=== PATIENT | male | born 1995 | race Caucasian/White ===

== ENCOUNTER 2023-02-15 15:19 | Emergency (ER) | payer MEDICAID, SELFPAY ==
[2023-02-15 15:25] VITALS: BP 157/119; PULSE 175; RESP 24; TEMP 37.2; O2SAT 99; BMI 25.8
--- NOTE | 2023-02-15 15:28 | ECG_ITS ---
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
--- NOTE | 2023-02-15 15:47 | ED_ITS ---
HPI - Psych General Chief Complaint: Psychiatric Symptoms Stated Complaint: ANXIETY Time Seen by Provider: 02/15/23 15:40 Source: Reports patient Mode of arrival: walk-in Limitations: Reports no limitations History of Present Illness HPI Narrative: 28-year-old male presents for paranoia. He was with his sister and walked here unaccompanied. He states he feels that people are after him. He doesn't want anybody standing near him, as he doesn't want be accused of hitting them. Denies drug use. He doesn't seem to have any physical complaints. Related Data Allergies Allergy/AdvReac Type Severity Reaction Status Date / Time No Known Drug Allergies Allergy Verified 02/15/23 15:31 Review of Systems ROS Narrative A ten point review of systems is negative except as noted above. Exam Narrative Exam Narrative: Nurses note and vital signs reviewed and patient is not hypoxic. General: The patient is nearly continuously looking under the curtain that goes into his room and then off to the other side of the bed and then back to the curtain side. Skin: Warm, dry, no pallor noted. There is no rash noted. Head: Normocephalic, atraumatic Eye: Normal conjunctiva, no drainage Ears, Nose, Mouth, and Throat: oral mucosa is moist. Nares patent. Cardiovascular: Regular Rate and Rhythm, tachycardic Respiratory: Patient is in no distress, no accessory muscle use, lungs are clear to auscultation, no wheezing, rales or rhonchi Back: non-tender GI: one ten Musculoskeletal: The patient has no evidence of calf tenderness, no pitting edema, symmetrical pulses noted bilaterally Neurological: slightly pressured speech Psychiatric: very anxious, nearly continuously looking around the room Constitutional Vital Signs - 24 hr 02/15/23 15:25 02/15/23 17:53 Temperature 99 F Pulse Rate [Monitor] 175 H 139 H Respiratory Rate 24 24 Blood Pressure [Right Arm] 157/119 H 170/100 H Pulse Oximetry 99 99 Oxygen Delivery Method Room Air Room Air Course Vital Signs Vital signs: Vital Signs Temperature 99 F 02/15/23 15:25 Pulse Rate 175 H 02/15/23 15:25 Respiratory Rate 24 02/15/23 15:25 Blood Pressure 157/119 H 02/15/23 15:25 Pulse Oximetry 99 02/15/23 15:25 Oxygen Delivery Method Room Air 02/15/23 15:25 Temperature 99 F 02/15/23 15:25 Pulse Rate 139 H 02/15/23 17:53 Respiratory Rate 24 02/15/23 17:53 Blood Pressure 170/100 H 02/15/23 17:53 Pulse Oximetry 99 02/15/23 17:53 Oxygen Delivery Method Room Air 02/15/23 17:53 MDM - Psych MDM Narrative Medical decision making narrative: drug screen is pending. He is quite paranoid and has a history of substance abuse. The patient is signed out to . Differential Diagnosis Differential diagnosis: Likely acute psychosis, depression, drug-induced psychotic disorder and acute anxiety Lab Data Attestation: I reviewed the patient's lab results. Labs: Lab Results 02/15/23 Range/Units 15:52 WBC 15.6 H (4.0-11.0) 10^3/uL RBC 5.87 (4.70-6.10) 10^6/uL Hgb 17.7 (14.0-18.0) g/dL Hct 49.4 (42.0-54.0) % MCV 84.2 (80.0-94.0) fL MCH 30.2 (25.9-34.0) pg MCHC 35.8 H (29.9-35.2) g/dL RDW 11.8 (11.0-15.0) % Plt Count 398 (150-450) 10^3/uL MPV 9.5 (9.5-13.5) fL Neut % (Auto) 85.8 H (43.0-75.0) % Lymph % (Auto) 9.4 L (20.5-60.0) % [place] % (Auto) 4.0 (1.7-12.0) % Eos % (Auto) 0.0 L (0.9-7.0) % Baso % (Auto) 0.4 (0.2-2.0) % Neut # (Auto) 13.3 H (1.4-6.5) 10^3/uL Lymph # (Auto) 1.5 (1.2-3.8) 10^3/uL [place] # (Auto) 0.6 (0.3-0.8) 10^3/uL Eos # (Auto) 0.0 (0.0-0.7) 10^3/uL Baso # (Auto) 0.1 (0.0-0.1) 10^3/uL Abs Immat Gran (auto) 0.07 H (0.00-0.03) 10^3/uL Imm/Tot Granulo (auto) 0.4 (0.0-0.5) % Sodium 141 (136-145) mmol/L Potassium 3.7 (3.5-5.1) mmol/L Chloride 105 (98-107) mmol/L Carbon Dioxide 26.4 (21.0-32.0) mmol/L Anion Gap 13.3 BUN 11.0 (7.0-18.0) mg/dL Creatinine 1.30 (0.70-1.30) mg/dL Est GFR ( Amer) >60 (>=60) Est GFR (Non-Af Amer) >60 (>=60) BUN/Creatinine Ratio 8.5 Glucose 159 H (74-106) mg/dL Calcium 9.0 (8.5-10.1) mg/dL TSH 0.485 (0.358-3.740) uIU/mL Salicylates 4.1 (<=19.9) mg/dL Acetaminophen <2.0 L (10.0-30.0) ug/mL Ethanol Quant <3 mg/dL ECG Data Attestation: I personally reviewed and interpreted this ECG as follows: (EKG on my interpretation shows sinus tachycardia) Discharge Plan Discharge Chief Complaint: Psychiatric Symptoms Clinical Impression: Acute psychosis Patient Disposition: Still a Patient Referrals: Physician,Non-Staff, MD [Primary Care Provider] - 1 week
[2023-02-15] MEDS: 0.9 % SODIUM CHLORIDE 1,000 ML 1000 ML IV (16:05)
[2023-02-15 16:25] LABS: Anion Gap 13.3; BUN Creatinine Ratio 8.5; Carbon Dioxide 26.4 mmol/L (21.0-32.0); Chloride 105 mmol/L (98-107); Estimated GFR (African America >60 (>=60); Estimated GFR (Non-African Ame >60 (>=60); Glucose 159 mg/dL (74-106); Potassium 3.7 mmol/L (3.5-5.1); Salicylate 4.1 mg/dL (<=19.9); Sodium 141 mmol/L (136-145); Thyroid Stimulating Hormone 0.485 uIU/mL (0.358-3.740)
[2023-02-15 16:28] LABS: Basophils Absolute Auto 0.1 10^3/uL (0.0-0.1); Basophils Percent Auto 0.4 % (0.2-2.0); Hematocrit 49.4 % (42.0-54.0); Hemoglobin 17.7 g/dL (14.0-18.0); Immature Granulocytes Abs Auto 0.07 10^3/uL (0.00-0.03); Immature Granulocytes Pct Auto 0.4 % (0.0-0.5); Lymphocytes Absolute Auto 1.5 10^3/uL (1.2-3.8); Lymphocytes Percent Auto 9.4 % (20.5-60.0); Mean Corpuscular HGB Conc 35.8 g/dL (29.9-35.2); Mean Corpuscular Hemoglobin 30.2 pg (25.9-34.0); Mean Corpuscular Volume 84.2 fL (80.0-94.0); Mean Platelet Volume 9.5 fL (9.5-13.5); Monocytes Absolute Auto 0.6 10^3/uL (0.3-0.8); Neutrophils Absolute Auto 13.3 10^3/uL (1.4-6.5); Neutrophils Percent Auto 85.8 % (43.0-75.0); Platelet Count 398 10^3/uL (150-450); Red Blood Count 5.87 10^6/uL (4.70-6.10); Red Cell Distribution Width 11.8 % (11.0-15.0); White Blood Count 15.6 10^3/uL (4.0-11.0)
[2023-02-15 16:32] LABS: Acetaminophen <2.0 ug/mL (10.0-30.0)
[2023-02-15 16:38] LABS: Ethanol <3 mg/dL
[2023-02-15 17:53] VITALS: BP 170/100; PULSE 139; RESP 24; O2SAT 99
--- NOTE | 2023-02-15 17:57 | XR_ITS ---
The [address] [address] Patient Name: MEETA CARABALLO MRN: [id number] date: 1995 Sex: M Assigned Patient Location: ED.MAIN Current Patient Location: ER Accession/Order Number: [id number] Exam Date: 02/15/2023 18:48 Report Date: 02/15/2023 19:29 At the request of: DANIEL BROUSSARD Procedure: XR chest 1V PROCEDURE: XR chest 1V DATE: 02/15/2023 5:48 PM CDT COMPARISONS: None. CLINICAL INDICATION: 28 years Male tachycardic FINDINGS: The cardiomediastinal silhouette and pulmonary vasculature are within normal limits. The lungs are clear. There is no evidence of pleural effusion or pneumothorax. IMPRESSION: Chest radiograph is within normal limits. Electronically authenticated by: NICHOLE MONTIEL Date: 02/15/2023 19:29
[2023-02-15] MEDS: LORAZEPAM 2 MG/ML 1 ML VIAL 1 MG IV (18:39)
[2023-02-15 19:14] LABS: Amphetamine Screen Urine POSITIVE (NEGATIVE); Barbiturates Screen Urine NEGATIVE (NEGATIVE); Benzodiazepines Screen Urine NEGATIVE (NEGATIVE); Buprenorphine Screen Urine NEGATIVE (NEGATIVE); Cannabinoid Screen Urine POSITIVE (NEGATIVE); Cocaine Screen Urine POSITIVE (NEGATIVE); Methadone Screen Urine NEGATIVE (NEGATIVE); Methamphetamines Screen Urine POSITIVE (NEGATIVE); Opiate Screen Urine NEGATIVE (NEGATIVE); Oxycodone Screen Urine NEGATIVE (NEGATIVE); Phencyclidine Screen Urine NEGATIVE (NEGATIVE); Tricyclic Antidepressant Urine NEGATIVE (NEGATIVE)
[2023-02-15] MEDS: HALOPERIDOL LACTATE 5 MG/ML VIAL IM (22:51)
[2023-02-15] MEDS: LORAZEPAM 2 MG/ML 1 ML VIAL 0.5 MG IV (22:51)
--- NOTE | 2023-02-15 23:00 | PC.NURSE ---
patient in [place] with security. he is afraid of the room. 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 patient given two medications. IV being removed. [facility] psych car here for patient. patient refuse to go into room for vitals.
== END 2023-02-15 23:29 ==
PROVIDERS: Emergency Medicine; Emergency Provider Emergency Medicine
DX: F25.9 Schizoaffective disorder, unspecified (principal); F19.10 Other psychoactive substance abuse, uncomplicated
CPT/HCPCS: 36415; 71045; 80048; 80179; 80307; 80320; 80329; 84443; 85025; 93005; 96372; 96374; 96376; 99285

== ENCOUNTER 2023-05-17 19:57 | Emergency (ER) | payer MEDICAID, SELFPAY ==
[2023-05-17 20:02] VITALS: BP 146/89; PULSE 101; RESP 18; TEMP 36.8; O2SAT 97; BMI 24.4
--- NOTE | 2023-05-17 20:11 | XR_ITS ---
[address] [address] Patient Name: MEETA CARABALLO MRN: [id number] date: 1995 Sex: M Assigned Patient Location: ER Current Patient Location: ER Accession/Order Number: [id number] Exam Date: 05/17/2023 21:29 Report Date: 05/17/2023 21:05 At the request of: JAGDEEP SEQUEIRA Procedure: XR chest 1V EXAMINATION: XR chest 1V HISTORY: Cough COMPARISON: Portable chest 02/15/2023 TECHNIQUE: Portable chest FINDINGS: The lung parenchyma is free of consolidation or infiltrate. No pneumothorax or pleural effusion. The cardiac, mediastinal and hilar contours are normal. The visualized osseous structures exhibit no gross abnormality. XR/XR chest 1V IMPRESSION: No acute cardiopulmonary abnormality. Electronically authenticated by: URBAN SPENCER Date: 05/17/2023 21:05
--- NOTE | 2023-05-17 20:12 | ED_ITS ---
HPI - URI/Sore Throat General Chief Complaint: Upper Respiratory Infection Stated Complaint: VOMITING Time Seen by Provider: 05/17/23 20:03 Source: patient Limitations: no limitations History of Present Illness HPI Narrative: presents with cough past couple of days. Nausea yesterday. felt dizzy earlier today but not now. Not short of breath. feels ill. Girlfriend also ill. No definite fever. No history of asthma. Does smoke cigarettes MD elicited complaint: Reports cough Related Data Home Medications Medication Instructions Recorded Confirmed buspirone 10 mg tablet 35 mg PO TID 05/17/23 05/17/23 escitalopram oxalate 5 mg tablet 5 mg PO DAILY 05/17/23 05/17/23 paliperidone 6 mg tablet,extended 6 mg PO DAILY 05/17/23 05/17/23 release 24 hr paliperidone palmitate 234 mg/1.5 234 mg IM Q30D 05/17/23 05/17/23 mL intramuscular syringe ([place]) prazosin 1 mg capsule 1 mg PO QPM 05/17/23 05/17/23 trazodone 150 mg tablet 150 mg PO QPM 05/17/23 05/17/23 Allergies Allergy/AdvReac Type Severity Reaction Status Date / Time No Known Drug Allergies Allergy Verified 02/15/23 15:31 Review of Systems ROS Status of ROS 10 or more systems reviewed and unremarkable except as noted in history and below [facility] Social History Smoking status: Current every day smoker Exam Constitutional Vital Signs, click to edit/add: Last Vital Signs Temp 98.2 F 05/17/23 20:02 Pulse 80 05/17/23 20:24 Resp 18 05/17/23 20:02 BP 145/89 H 05/17/23 20:24 Pulse Ox 97 05/17/23 20:02 O2 Del Method Room Air 05/17/23 20:02 Common normals: no apparent distress, average body habitus, oriented x3, no limitations, healthy appearing, alert and well nourished Eye Common normals: EOMs intact bilaterally and conjunctivae normal Respiratory Common normals: normal respiratory effort, no retractions, no use of accessory muscles and clear to auscultation bilaterally Cardio Common normals: regular rate, regular rhythm, S1 normal heart sound and S2 normal heart sound GI Common normals: Normal to inspection, nondistended, normoactive bowel sounds present, soft to palpation and non-tender Extremity Common normals: normal to inspection and full ROM Neuro Common normals: oriented x3, CN's II-XII intact bilaterally, moves all extremities, no focal motor deficits and no sensory deficits noted Psych Appearance: grossly normal Course Vital Signs Vital signs: Vital Signs Temperature 98.2 F 05/17/23 20:02 Pulse Rate 101 H 05/17/23 20:02 Respiratory Rate 18 05/17/23 20:02 Blood Pressure 146/89 H 05/17/23 20:02 Pulse Oximetry 97 05/17/23 20:02 Oxygen Delivery Method Room Air 05/17/23 20:02 Temperature 98.2 F 05/17/23 20:02 Pulse Rate 80 05/17/23 20:24 Respiratory Rate 18 05/17/23 20:02 Blood Pressure 145/89 H 05/17/23 20:24 Pulse Oximetry 97 05/17/23 20:02 Oxygen Delivery Method Room Air 05/17/23 20:02 MDM - URI/Sore Throat MDM Narrative Medical decision making narrative: ill past couple of days. Dizziness earlier today but not now. Found to have orthostatic tachycardia. Exam without focal findings. nasal swab positive for Rhino/entero virus. Patient hydrated and is feeling better. Discharged home with work note. Clinically stable Lab Data Labs: Lab Results 05/17/23 Range/Units 20:15 WBC 10.4 (4.0-11.0) 10^3/uL RBC 4.78 (4.70-6.10) 10^6/uL Hgb 14.9 (14.0-18.0) g/dL Hct 41.5 L (42.0-54.0) % MCV 86.8 (80.0-94.0) fL MCH 31.2 (25.9-34.0) pg MCHC 35.9 H (29.9-35.2) g/dL RDW 12.1 (11.0-15.0) % Plt Count 246 (150-450) 10^3/uL MPV 9.6 (9.5-13.5) fL Neut % (Auto) 68.0 (43.0-75.0) % Lymph % (Auto) 22.6 (20.5-60.0) % [place] % (Auto) 8.3 (1.7-12.0) % Eos % (Auto) 0.0 L (0.9-7.0) % Baso % (Auto) 0.8 (0.2-2.0) % Neut # (Auto) 7.1 H (1.4-6.5) 10^3/uL Lymph # (Auto) 2.3 (1.2-3.8) 10^3/uL [place] # (Auto) 0.9 H (0.3-0.8) 10^3/uL Eos # (Auto) 0.0 (0.0-0.7) 10^3/uL Baso # (Auto) 0.1 (0.0-0.1) 10^3/uL Abs Immat Gran (auto) 0.03 (0.00-0.03) 10^3/uL Imm/Tot Granulo (auto) 0.3 (0.0-0.5) % Sodium 140 (136-145) mmol/L Potassium 3.4 L (3.5-5.1) mmol/L Chloride 105 (98-107) mmol/L Carbon Dioxide 24.0 (21.0-32.0) mmol/L Anion Gap 14.4 BUN 17.0 (7.0-18.0) mg/dL Creatinine 0.90 (0.70-1.30) mg/dL Est GFR ( Amer) >60 (>=60) Est GFR (Non-Af Amer) >60 (>=60) BUN/Creatinine Ratio 18.9 Glucose 113 H (74-106) mg/dL Lactate 0.9 (0.4-2.0) mmol/L Calcium 8.3 L (8.5-10.1) mg/dL Total Bilirubin 0.4 (0.2-1.0) mg/dL AST 29 (15-37) U/L ALT 86 H (16-63) U/L Alkaline Phosphatase 80 (46-116) U/L Total Protein 7.1 (6.4-8.2) g/dL Albumin 3.6 (3.4-5.0) g/dL Globulin 3.5 g/dL Albumin/Globulin Ratio 1.0 Urine Color Yellow (YELLOW) Urine Clarity Clear (CLEAR) Urine pH 6.0 (5.0-9.0) Ur Specific [place] >=1.030 A (1.005-1.025) Urine Protein Negative (NEG/TRACE) mg/dL Urine Glucose (UA) Negative (NEGATIVE) mg/dL Urine Ketones Trace A (NEGATIVE) mg/dL Urine Occult Blood Negative (NEGATIVE) Urine Nitrite Negative (NEGATIVE) Urine Bilirubin Negative (NEGATIVE) Urine Urobilinogen 2.0 A (0.2-1.0) EU/dL Ur Leukocyte Esterase Negative (NEGATIVE) Adenovirus (PCR) Not detected (NOT DETECTE) C. pneumoniae DNA (PCR) Not detected (NOT DETECTE) Coronavirus Type OC43 Not detected (NOT DETECTE) Coronavirus Type HKU1 Not detected (NOT DETECTE) Coronavirus Type 229E Not detected (NOT DETECTE) Coronavirus Type NL63 Not detected (NOT DETECTE) Human Metapneumovir PCR Not detected (NOT DETECTE) M. pneumoniae (PCR) Not detected (NOT DETECTE) Parainfluenza PCR Not detected (NOT DETECTE) Parainfluenza 2 (PCR) Not detected (NOT DETECTE) Parainfluenza 3 (PCR) Not detected (NOT DETECTE) Parainfluenza 4 (PCR) Not detected (NOT DETECTE) RSV (RT-PCR) Not detected (NOT DETECTE) Entero/Rhino (PCR) Detected A (NOT DETECTE) SARS-CoV-2 (PCR) Not detected (NOT DETECTE) Bordetella pertussis (PCR) Not detected (NOT DETECTE) B parapertussis DNA PCR Not detected (NOT DETECTE) Influenza Type A (PCR) Not detected (NOT DETECTE) Influenza Type B (PCR) Not detected (NOT DETECTE) Discharge Plan Discharge Chief Complaint: Upper Respiratory Infection Clinical Impression: Acute dehydration, Viral infection Patient Disposition: Home, Self-Care Prescriptions / Home Meds: No Action buspirone 10 mg tablet 35 mg PO TID escitalopram oxalate 5 mg tablet 5 mg PO DAILY paliperidone 6 mg tablet extended release 24hr 6 mg PO DAILY Invega Sustenna 234 mg/1.5 mL syringe 234 mg IM Q30D trazodone 150 mg tablet 150 mg PO QPM prazosin 1 mg capsule 1 mg PO QPM Instructions: Dehydration (ED), Viral Syndrome (ED) Stand Alone Forms: Portal Instructions Referrals: Physician,Non-Staff, MD [Primary Care Provider] - 1 week
--- NOTE | 2023-05-17 20:20 | PC.NURSE ---
pt presents to ED c/o n/v that started 2 days ago. pt states earlier today he was feeling dizzy but no longer feeling dizzy at this time or nausea. pt states that he has cough and is hacking up phlegm but is a smoker. pt states that he has been around people who have been sick so he tested himself for covid today but test resulted negative.
[2023-05-17 20:24] VITALS: BP 140/85; BP 144/92; BP 145/89; PULSE 124; PULSE 80; PULSE 90
[2023-05-17 20:28] LABS: Adenovirus NOT DETECTED (NOT DETECTE); Bordetella parapertussis NOT DETECTED (NOT DETECTE); Coronavirus 229E NOT DETECTED (NOT DETECTE); Coronavirus HKU1 NOT DETECTED (NOT DETECTE); Coronavirus NL63 NOT DETECTED (NOT DETECTE); Coronavirus OC43 NOT DETECTED (NOT DETECTE); Human Metapneumovirus NOT DETECTED (NOT DETECTE); Influenza A NOT DETECTED (NOT DETECTE); Influenza B NOT DETECTED (NOT DETECTE); Mycoplasma pneumoniae NOT DETECTED (NOT DETECTE); Parainfluenza Virus 1 NOT DETECTED (NOT DETECTE); Parainfluenza Virus 2 NOT DETECTED (NOT DETECTE); Parainfluenza Virus 3 NOT DETECTED (NOT DETECTE); Parainfluenza Virus 4 NOT DETECTED (NOT DETECTE); Respiratory Syncytial Virus NOT DETECTED (NOT DETECTE); SARS-CoV-2 NOT DETECTED (NOT DETECTE)
[2023-05-17 20:30] LABS: Basophils Absolute Auto 0.1 10^3/uL (0.0-0.1); Basophils Percent Auto 0.8 % (0.2-2.0); Hematocrit 41.5 % (42.0-54.0); Hemoglobin 14.9 g/dL (14.0-18.0); Immature Granulocytes Abs Auto 0.03 10^3/uL (0.00-0.03); Immature Granulocytes Pct Auto 0.3 % (0.0-0.5); Lymphocytes Absolute Auto 2.3 10^3/uL (1.2-3.8); Lymphocytes Percent Auto 22.6 % (20.5-60.0); Mean Corpuscular HGB Conc 35.9 g/dL (29.9-35.2); Mean Corpuscular Hemoglobin 31.2 pg (25.9-34.0); Mean Corpuscular Volume 86.8 fL (80.0-94.0); Mean Platelet Volume 9.6 fL (9.5-13.5); Monocytes Absolute Auto 0.9 10^3/uL (0.3-0.8); Monocytes Percent Auto 8.3 % (1.7-12.0); Neutrophils Absolute Auto 7.1 10^3/uL (1.4-6.5); Platelet Count 246 10^3/uL (150-450); Red Blood Count 4.78 10^6/uL (4.70-6.10); Red Cell Distribution Width 12.1 % (11.0-15.0); White Blood Count 10.4 10^3/uL (4.0-11.0)
[2023-05-17] MEDS: 0.9 % SODIUM CHLORIDE 1,000 ML 999 ML IV (20:44)
[2023-05-17 20:47] LABS: Bilirubin Urine NEGATIVE (NEGATIVE); Blood Urine NEGATIVE (NEGATIVE); Clarity Urine CLEAR (CLEAR); Color Urine YELLOW (YELLOW); Glucose Urine UA NEGATIVE (NEGATIVE); Ketones Urine TRACE mg/dL (NEGATIVE); Leukocyte Esterase Urine NEGATIVE (NEGATIVE); Nitrite Urine NEGATIVE (NEGATIVE); Protein Urine NEGATIVE (NEG/TRACE); Specific Gravity Urine >=1.030 (1.005-1.025)
[2023-05-17 20:51] LABS: Urine Microscopic Indicated NO
[2023-05-17 20:55] LABS: Lactate/Lactic Acid 0.9 mmol/L (0.4-2.0)
[2023-05-17 20:58] LABS: Alanine Aminotransferase 86 U/L (16-63); Albumin Level 3.6 g/dL (3.4-5.0); Alkaline Phosphatase 80 U/L (46-116); Anion Gap 14.4; Aspartate Amino Transferase 29 U/L (15-37); BUN Creatinine Ratio 18.9; Bilirubin Total 0.4 mg/dL (0.2-1.0); Calcium 8.3 mg/dL (8.5-10.1); Chloride 105 mmol/L (98-107); Estimated GFR (African America >60 (>=60); Estimated GFR (Non-African Ame >60 (>=60); Globulin 3.5 g/dL; Glucose 113 mg/dL (74-106); Potassium 3.4 mmol/L (3.5-5.1); Sodium 140 mmol/L (136-145); Total Protein 7.1 g/dL (6.4-8.2)
[2023-05-17 21:30] LABS: Human Rhinovirus/Enterovirus DETECTED (NOT DETECTE)
[2023-05-17 22:05] VITALS: BP 158/98; PULSE 65; RESP 18; O2SAT 98
== END 2023-05-17 22:06 | disposition home or self-care (01) ==
PROVIDERS: Emergency Provider Internal Medicine
DX: E86.0 Dehydration (principal); B34.8 Other viral infections of unspecified site; B34.1 Enterovirus infection, unspecified; F17.210 Nicotine dependence, cigarettes, uncomplicated; Z79.899 Other long term (current) drug therapy; R00.0 Tachycardia, unspecified; Z20.822 Contact with and (suspected) exposure to COVID-19
CPT/HCPCS: 0202U; 36415; 71045; 80053; 81003; 83605; 85025; 96360; 99285

== ENCOUNTER 2024-01-14 15:32 | Emergency (ER) | payer MEDICAID, SELFPAY ==
[2024-01-14] VITALS (10 sets, daily range): BP systolic 132–166; BP diastolic 84–103; PULSE 49–80; TEMP 36.6; O2SAT 97–99; BMI 24.4
--- NOTE | 2024-01-14 15:48 | ED.NAVMDI1 ---
HPI - Nausea/Vomiting/Diarrhea General Chief complaint: Nausea/Vomiting/Diarrhea Stated complaint: Nausea/Vomiting/Diarrhea Time Seen by Provider: 01/14/24 15:40 Source: patient Mode of arrival: walk-in History of Present Illness HPI Narrative: Patient presents to ED complaining of nausea vomiting and shaking and not feeling well. Patient states this has been an issue for him on and off lately but nobody can figure out what is wrong. He said he has not had any follow-up appointments until recently and he has started to see other doctors about this. He does admit to smoking marijuana but did not have any today. He reports that he has stomach cramping and pain is centrally located. He has dry heaves and vomiting. No blood in the stool or vomit. Also complains of some diarrhea. He states he missed work today for so he came in for further evaluation. Related Data Home Medications ?Medication ?Instructions ?Recorded ?Confirmed paliperidone palmitate 234 mg/1.5 234 mg IM Q30D 05/17/23 01/14/24 mL intramuscular syringe ([facility]) trazodone 150 mg tablet 150 mg PO QPM 05/17/23 01/14/24 buspirone 15 mg tablet 15 mg PO BID 01/14/24 01/14/24 clomipramine 25 mg capsule 25 mg PO DAILY 01/14/24 01/14/24 fluvoxamine 25 mg tablet 25 mg PO DAILY 01/14/24 01/14/24 hydroxyzine pamoate 25 mg capsule 25 mg PO DAILY 01/14/24 01/14/24 lamotrigine 100 mg tablet 100 mg PO DAILY 01/14/24 01/14/24 olanzapine 15 mg tablet 15 mg PO .hs 01/14/24 01/14/24 pantoprazole 40 mg tablet,delayed 40 mg PO DAILY 01/14/24 01/14/24 release Allergies Allergy/AdvReac Type Severity Reaction Status Date / Time No Known Drug Allergies Allergy Verified 02/15/23 15:31 Review of Systems ROS Status of ROS 10 or more systems reviewed and unremarkable except as noted in history and below [facility] Social History Smoking status: Current every day smoker Exam Narrative Exam Narrative: General: alert, no acute distress Cardiovascular: regular rate and rhythm, normal peripheral perfusion. Respiratory: Lungs CTA, respirations non labored. Extremities: no deformity, no trauma. Neurological: oriented x 4, LOC appropriate for age. Abdomen soft mild generalized central abdominal tenderness no peritoneal signs no rebound no guarding Constitutional Vital Signs, click to edit/add: Last Vital Signs Temp 97.8 F 01/14/24 15:48 Pulse 58 L 01/14/24 17:20 Resp 17 01/14/24 17:20 BP 152/84 H 01/14/24 17:14 Pulse Ox 98 01/14/24 17:20 O2 Del Method Room Air 01/14/24 15:48 Course Vital Signs Vital signs: Vital Signs Temperature 97.8 F 01/14/24 15:48 Pulse Rate 63 01/14/24 15:48 Respiratory Rate 22 H 01/14/24 15:48 Blood Pressure 166/103 H 01/14/24 15:48 Pulse Oximetry 98 01/14/24 15:48 Oxygen Delivery Method Room Air 01/14/24 15:48 Temperature 97.8 F 01/14/24 15:48 Pulse Rate 58 L 01/14/24 17:20 Respiratory Rate 17 01/14/24 17:20 Blood Pressure 152/84 H 01/14/24 17:14 Pulse Oximetry 98 01/14/24 17:20 Oxygen Delivery Method Room Air 01/14/24 15:48 MDM - Nausea/Vomiting/Diarrhea MDM Narrative Medical decision making narrative: Patient's labs show a low potassium at 2.9. He was able to tolerate p.o. here and he took his potassium down of 50 mEq. He said he felt a lot better after medication, he was still feeling slightly nauseated but much better than when he got here. He looks much more comfortable and was able to sleep and rest here in ED. He instructed him to follow-up with Gastroenterology:. I also counseled him on stopping the marijuana use as I think is is contributing to his nausea vomiting and abdominal pain symptoms. Return to ED if worsening symptoms Differential Diagnosis Differential diagnosis: Likely gastroenteritis, dehydration and other (Cannabis induced hyperemesis) Medical Records Attestation: I reviewed the patient's medical records. Lab Data Attestation: I reviewed the patient's lab results. Labs: Lab Results 01/14/24 Range/Units 15:57 WBC 13.6 H (4.0-11.0) 10^3/uL RBC 5.10 (4.70-6.10) 10^6/uL Hgb 15.3 (14.0-18.0) g/dL Hct 44.2 (42.0-54.0) % MCV 86.7 (80.0-94.0) fL MCH 30.0 (25.9-34.0) pg MCHC 34.6 (29.9-35.2) g/dL RDW 12.2 (11.0-15.0) % Plt Count 283 (150-450) 10^3/uL MPV 9.5 (9.5-13.5) fL Neut % (Auto) 85.4 H (43.0-75.0) % Lymph % (Auto) 10.9 L (20.5-60.0) % [place] % (Auto) 3.0 (1.7-12.0) % Eos % (Auto) 0.0 L (0.9-7.0) % Baso % (Auto) 0.4 (0.2-2.0) % Neut # (Auto) 11.6 H (1.4-6.5) 10^3/uL Lymph # (Auto) 1.5 (1.2-3.8) 10^3/uL [place] # (Auto) 0.4 (0.3-0.8) 10^3/uL Eos # (Auto) 0.0 (0.0-0.7) 10^3/uL Baso # (Auto) 0.1 (0.0-0.1) 10^3/uL Abs Immat Gran (auto) 0.04 H (0.00-0.03) 10^3/uL Imm/Tot Granulo (auto) 0.3 (0.0-0.5) % Sodium 142 (136-145) mmol/L Potassium 2.9 L* (3.5-5.1) mmol/L Chloride 102 (98-107) mmol/L Carbon Dioxide 28.2 (21.0-32.0) mmol/L Anion Gap 14.7 BUN 13.0 (7.0-18.0) mg/dL Creatinine 1.01 (0.70-1.30) mg/dL Est GFR ( Amer) >60 (>=60) Est GFR (Non-Af Amer) >60 (>=60) BUN/Creatinine Ratio 12.9 Glucose 153 H (74-106) mg/dL Calcium 9.0 (8.5-10.1) mg/dL Total Bilirubin 0.7 (0.2-1.0) mg/dL AST 29 (15-37) U/L ALT 57 (16-63) U/L Alkaline Phosphatase 87 (46-116) U/L Total Protein 7.7 (6.4-8.2) g/dL Albumin 4.0 (3.4-5.0) g/dL Globulin 3.7 g/dL Albumin/Globulin Ratio 1.1 Discharge Plan Discharge Stand Alone Forms: Portal Instructions Chief Complaint: Nausea/Vomiting/Diarrhea Clinical Impression: Acute dehydration, Uses marijuana Patient Disposition: Home, Self-Care Time of Disposition Decision: 18:00 Mode of Transportation: Private Vehicle Prescriptions / Home Meds: No Action Invega Sustenna 234 mg/1.5 mL syringe 234 mg IM Q30D trazodone 150 mg tablet 150 mg PO QPM fluvoxamine 25 mg tablet 25 mg PO DAILY buspirone 15 mg tablet 15 mg PO BID clomipramine 25 mg capsule 25 mg PO DAILY hydroxyzine pamoate 25 mg capsule 25 mg PO DAILY lamotrigine 100 mg tablet 100 mg PO DAILY olanzapine 15 mg tablet 15 mg PO .hs pantoprazole 40 mg tablet,delayed release (DR/EC) 40 mg PO DAILY Print Language: Slovenian Instructions: Dehydration (ED), Cannabis Use Disorder (ED) Referrals: Physician,Non-Staff, MD [Primary Care Provider] - 1 week
[2024-01-14 16:05] LABS: Basophils Absolute Auto 0.1 10^3/uL (0.0-0.1); Basophils Percent Auto 0.4 % (0.2-2.0); Hematocrit 44.2 % (42.0-54.0); Hemoglobin 15.3 g/dL (14.0-18.0); Immature Granulocytes Abs Auto 0.04 10^3/uL (0.00-0.03); Immature Granulocytes Pct Auto 0.3 % (0.0-0.5); Lymphocytes Absolute Auto 1.5 10^3/uL (1.2-3.8); Lymphocytes Percent Auto 10.9 % (20.5-60.0); Mean Corpuscular HGB Conc 34.6 g/dL (29.9-35.2); Mean Corpuscular Volume 86.7 fL (80.0-94.0); Mean Platelet Volume 9.5 fL (9.5-13.5); Monocytes Absolute Auto 0.4 10^3/uL (0.3-0.8); Neutrophils Absolute Auto 11.6 10^3/uL (1.4-6.5); Neutrophils Percent Auto 85.4 % (43.0-75.0); Platelet Count 283 10^3/uL (150-450); Red Cell Distribution Width 12.2 % (11.0-15.0); White Blood Count 13.6 10^3/uL (4.0-11.0)
[2024-01-14] MEDS: 0.9 % SODIUM CHLORIDE 1,000 ML 1000 ML IV (16:16)
[2024-01-14 16:31] LABS: Alanine Aminotransferase 57 U/L (16-63); Albumin Globulin Ratio 1.1; Alkaline Phosphatase 87 U/L (46-116); Anion Gap 14.7; Aspartate Amino Transferase 29 U/L (15-37); BUN Creatinine Ratio 12.9; Bilirubin Total 0.7 mg/dL (0.2-1.0); Carbon Dioxide 28.2 mmol/L (21.0-32.0); Chloride 102 mmol/L (98-107); Estimated GFR (African America >60 (>=60); Estimated GFR (Non-African Ame >60 (>=60); Globulin 3.7 g/dL; Glucose 153 mg/dL (74-106); Sodium 142 mmol/L (136-145); Total Protein 7.7 g/dL (6.4-8.2)
[2024-01-14] MEDS: HALOPERIDOL LACTATE 5 MG/ML VIAL IV (16:32)
[2024-01-14 16:33] LABS: Potassium 2.9 mmol/L (3.5-5.1)
[2024-01-14] MEDS: ONDANSETRON PF 4 MG/2 ML VIAL IV (17:10)
[2024-01-14] MEDS: POTASSIUM BICARBONATE/CIT 25 MEQ TABLET EFF 50 MEQ PO (17:10)
[2024-01-14] MEDS: KETOROLAC TROMETHAMINE 30 MG/ML VIAL IVP (17:10)
== END 2024-01-14 18:16 | disposition home or self-care (01) ==
PROVIDERS: Emergency Provider Emergency Medicine
DX: E86.0 Dehydration (principal); F17.200 Nicotine dependence, unspecified, uncomplicated
CPT/HCPCS: 36415; 80053; 85025; 96361; 96374; 96375; 99284

== ENCOUNTER 2024-03-05 10:09 | Outpatient (OUT) | payer MEDICAID, SELFPAY ==
[2024-03-05 12:01] LABS: Thyroid Stimulating Hormone 0.712 uIU/mL (0.358-3.740)
[2024-03-06 06:13] LABS: HBsAg Screen Negative (Negative); HIV Ab/p24 Ag Screen Non Reactive (Non Reactive); Hep A Ab, Total Positive (Negative); Hepatitis B Surf Ab Quant 20.1 mIU/mL (Immunity>10)
[2024-03-09 08:11] LABS: Deamidated Gliadin Abs, IgA 4 units (0-19); Deamidated Gliadin Abs, IgG 3 units (0-19); Endomysial Antibody IgA Negative (Negative); Immunoglobulin A, Qn, Serum 187 mg/dL (90-386); t-Transglutaminase (tTG) IgA <2 U/mL (0-3); t-Transglutaminase (tTG) IgG 4 U/mL (0-5)
== END 2024-03-05 10:10 | disposition home or self-care (01) ==
LOC: LAB 10:12
DX: R10.33 Periumbilical pain (principal); K42.9 Umbilical hernia without obstruction or gangrene; K52.9 Noninfective gastroenteritis and colitis, unspecified; B18.2 Chronic viral hepatitis C; K90.49 Malabsorption due to intolerance, not elsewhere classified; F19.11 Other psychoactive substance abuse, in remission
CPT/HCPCS: 36415; 81596; 82784; 84443; 86231; 86258; 86317; 86364; 86708; 86709; 87340; 87389; 87522

== ENCOUNTER 2024-03-16 14:37 | Outpatient (REF) | payer MEDICAID, SELFPAY ==
[2024-03-18 16:02] LABS: C. Difficile PCR NEGATIVE (NEGATIVE)
== END 2024-03-16 14:38 | disposition home or self-care (01) ==
LOC: LAB 14:37
DX: R10.33 Periumbilical pain (principal); K42.9 Umbilical hernia without obstruction or gangrene; K52.9 Noninfective gastroenteritis and colitis, unspecified; B18.2 Chronic viral hepatitis C
CPT/HCPCS: 36415; 82656; 83497; 83993; 87177; 87209; 87493

== ENCOUNTER 2024-11-26 08:46 | Outpatient (OUT) | payer OTHER, SELFPAY ==
[2024-11-26 09:22] LABS: Basophils Absolute Auto 0.1 10^3/uL (0.0-0.1); Basophils Percent Auto 0.8 % (0.2-2.0); Hematocrit 44.3 % (42.0-54.0); Hemoglobin 15.6 g/dL (14.0-18.0); Immature Granulocytes Abs Auto 0.01 10^3/uL (0.00-0.03); Immature Granulocytes Pct Auto 0.1 % (0.0-0.5); Lymphocytes Absolute Auto 2.6 10^3/uL (1.2-3.8); Lymphocytes Percent Auto 36.6 % (20.5-60.0); Mean Corpuscular HGB Conc 35.2 g/dL (29.9-35.2); Mean Corpuscular Hemoglobin 29.8 pg (25.9-34.0); Mean Corpuscular Volume 84.7 fL (80.0-94.0); Mean Platelet Volume 9.5 fL (9.5-13.5); Monocytes Absolute Auto 0.7 10^3/uL (0.3-0.8); Monocytes Percent Auto 9.1 % (1.7-12.0); Neutrophils Absolute Auto 3.8 10^3/uL (1.4-6.5); Neutrophils Percent Auto 53.4 % (43.0-75.0); Platelet Count 259 10^3/uL (150-450); Red Blood Count 5.23 10^6/uL (4.70-6.10); Red Cell Distribution Width 12.4 % (11.0-15.0); White Blood Count 7.1 10^3/uL (4.0-11.0)
[2024-11-26 12:54] LABS: Alanine Aminotransferase 63 U/L (16-63); Albumin Globulin Ratio 1.1; Albumin Level 3.8 g/dL (3.4-5.0); Alkaline Phosphatase 89 U/L (46-116); Anion Gap 13.5; Aspartate Amino Transferase 28 U/L (15-37); BUN Creatinine Ratio 19.5; Bilirubin Total 0.5 mg/dL (0.2-1.0); Calcium 8.4 mg/dL (8.5-10.1); Carbon Dioxide 26.3 mmol/L (21.0-32.0); Chloride 103 mmol/L (98-107); Estimated GFR (African America >60 (>=60 mL/min/1.73m^2); Estimated GFR (Non-African Ame >60 (>=60 mL/min/1.73m^2); Globulin 3.4 g/dL; Glucose 95 mg/dL (74-106); Potassium 3.8 mmol/L (3.5-5.1); Sodium 139 mmol/L (136-145); Total Protein 7.2 g/dL (6.4-8.2)
[2024-11-27 06:12] LABS: HBsAg Screen Negative (Negative); HIV Ab/p24 Ag Screen Non Reactive (Non Reactive); Hepatitis B Surf Ab Quant 19.5 mIU/mL (Immunity>10)
== END 2024-11-26 08:47 | disposition home or self-care (01) ==
LOC: LAB 08:49
PROVIDERS: Visit Provider Internal Medicine
DX: B19.20 Unspecified viral hepatitis C without hepatic coma (principal)
CPT/HCPCS: 36415; 80053; 85025; 86317; 87340; 87389; 87522

== ENCOUNTER 2024-12-28 14:15 | Emergency (ER) | payer OTHER, SELFPAY ==
[2024-12-28 14:22] VITALS: BP 137/84; PULSE 114; TEMP 36.6; O2SAT 98; BMI 24.4
--- NOTE | 2024-12-28 14:40 | ED.BACK1 ---
HPI HPI - Back Pain/Injury General Chief Complaint: Back Pain/Injury Stated Complaint: NECK AND BACK PAIN Time Seen by Provider: 12/28/24 14:34 Source: patient Mode of arrival: walk-in Limitations: no limitations History of Present Illness HPI Narrative: The patient have a history of chronic hip pains coming to the ER with a lower neck pain associated with no fall or trauma, the pain is not associate with any numbness tingling in his legs or feet or any hand numbness or tingling or weakness The patient mentioned that the pain mostly in the left side Related Data Home Medications ?Medication ?Instructions ?Recorded ?Confirmed paliperidone palmitate 234 mg/1.5 234 mg IM Q30D 05/17/23 01/14/24 mL intramuscular syringe (Invega Sustenna) trazodone 150 mg tablet 150 mg PO QPM 05/17/23 01/14/24 buspirone 15 mg tablet 15 mg PO BID 01/14/24 01/14/24 clomipramine 25 mg capsule 25 mg PO DAILY 01/14/24 01/14/24 fluvoxamine 25 mg tablet 25 mg PO DAILY 01/14/24 01/14/24 hydroxyzine pamoate 25 mg capsule 25 mg PO DAILY 01/14/24 01/14/24 lamotrigine 100 mg tablet 100 mg PO DAILY 01/14/24 01/14/24 olanzapine 15 mg tablet 15 mg PO .hs 01/14/24 01/14/24 pantoprazole 40 mg tablet,delayed 40 mg PO DAILY 01/14/24 01/14/24 release Previous Rx's ?Medication ?Instructions ?Recorded diclofenac sodium 75 mg 75 mg PO BID PRN pain #20 tabs 12/28/24 tablet,delayed release orphenadrine citrate 100 mg 100 mg PO BID PRN muscle spasm #10 12/28/24 tablet,extended release tabs Allergies Allergy/AdvReac Type Severity Reaction Status Date / Time No Known Drug Allergies Allergy Verified 12/28/24 14:21 Opioid HPI Opioid Management Most Recent Opioid Data: Last Pain Scale 6 Today, 14:28 Ur Phencyclidine Scrn, (NEGATIVE) Negative 02/15/23, 18:35 Review of Systems ROS Status of ROS 10 or more systems reviewed and unremarkable except as noted in history and below PFSH PFSH Social History Smoking status: Current every day smoker Little interest or pleasure in doing things: not at all Feeling down, depressed, or hopeless: not at all Exam Narrative Exam Narrative: Nurses notes and vital signs reviewed and patient is not hypoxic. General: Well-appearing and in no apparent distress. Skin: Warm, dry, no pallor noted. No rash. Head: Normocephalic, atraumatic. Neck: Left paraspinal muscle tenderness there is no intervertebral line tenderness the patient have a full range of movement Cardiovascular: Regular Rate and Rhythm without murmur, gallop or rub. Respiratory: No accessory muscle use or respiratory distress. Lungs are clear to auscultation, no wheezing, rales or rhonchi Chest Wall: no tenderness Back: No midline thoracic or lumbar vertebral tenderness. No CVA tenderness Musculoskeletal: normal ROM, no calf or popliteal tenderness, no lower extremity edema/swelling GI: Abdomen is soft, non-distended. Normal bowel sounds. No masses appreciated. No tenderness to palpation. No rebound, guarding, or rigidity noted. Neurological: A&O x4. No cranial nerve dysfunction observed. Constitutional Vital Signs, click to edit/add: Last Vital Signs Temp 98 F 12/28/24 14:22 Pulse 114 H 12/28/24 14:22 Resp 20 12/28/24 14:22 BP 137/84 12/28/24 14:22 Pulse Ox 98 12/28/24 14:22 O2 Del Method Room Air 12/28/24 14:22 Course Vital Signs Vital signs: Vital Signs Temperature 98 F 12/28/24 14:22 Pulse Rate 114 H 12/28/24 14:22 Respiratory Rate 12/28/24 14:22 Blood Pressure 137/84 12/28/24 14:22 Pulse Oximetry 98 12/28/24 14:22 Oxygen Delivery Method Room Air 12/28/24 14:22 Temperature 98 F 12/28/24 14:22 Pulse Rate 114 H 12/28/24 14:22 Respiratory Rate 12/28/24 14:22 Blood Pressure 137/84 12/28/24 14:22 Pulse Oximetry 98 12/28/24 14:22 Oxygen Delivery Method Room Air 12/28/24 14:22 MDM - Back Pain/Injury MDM Narrative Medical decision making narrative: The patient presented to us with a muscle pain mostly secondary sprain to the neck The patient does not have any alarming symptoms he was started on Voltaren as well as Norflex The patient is to follow up with primary care physician in next 2-3 days or to return to the emergency department should any of the signs or symptoms worsen or new symptoms develop. The patient agrees with the following Diagnosis and Treatment plan and the patient will be discharged home. Discharge Plan Discharge Chief Complaint: Back Pain/Injury Clinical Impression: Neck sprain, Acute hip pain Patient Disposition: Home, Self-Care Time of Disposition Decision: 15:02 Condition: Good Mode of Transportation: Private Vehicle Prescriptions / Home Meds: New diclofenac sodium 75 mg tablet,delayed release (DR/EC) 75 mg PO BID PRN (Reason: pain) Qty: 20 0RF orphenadrine citrate 100 mg tablet extended release 100 mg PO BID PRN (Reason: muscle spasm) Qty: 10 0RF No Action Invega Sustenna 234 mg/1.5 mL syringe 234 mg IM Q30D trazodone 150 mg tablet 150 mg PO QPM fluvoxamine 25 mg tablet 25 mg PO DAILY buspirone 15 mg tablet 15 mg PO BID clomipramine 25 mg capsule 25 mg PO DAILY hydroxyzine pamoate 25 mg capsule 25 mg PO DAILY lamotrigine 100 mg tablet 100 mg PO DAILY olanzapine 15 mg tablet 15 mg PO .hs pantoprazole 40 mg tablet,delayed release (DR/EC) 40 mg PO DAILY Print Language: Lithuanian Instructions: Hip Pain (ED), Neck Pain (ED) Additional Instructions: follow up with your family alfredo MONTANO note provided Referrals: Physician,Non-Staff, MD [Primary Care Provider] - 1 week Discharge Date/Time: 12/28/24 15:16
[2024-12-28] MEDS: KETOROLAC TROMETHAMINE 30 MG/ML VIAL IM (14:56)
== END 2024-12-28 15:16 | disposition home or self-care (01) ==
PROVIDERS: Emergency Provider Emergency Medicine
DX: S13.9XXA Sprain of joints and ligaments of unspecified parts of neck, initial encounter (principal); M25.559 Pain in unspecified hip; F17.200 Nicotine dependence, unspecified, uncomplicated; X58.XXXA Exposure to other specified factors, initial encounter
CPT/HCPCS: 96372; 99284; J1885

== ENCOUNTER 2025-03-30 22:54 | Emergency (ER) | payer OTHER, SELFPAY ==
--- OUTSIDE RECORDS SUMMARY | 2025-03-30 22:59 | XMS_ITS | CCD ---
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 Based on your results we are recommending you repeat the procedure at age 43. Please contact the office with any further questions or concerns. The office will contact you for follow up regarding your recent EGD. [facility] [phone] [facility] IntraOperative Documentson 0 01-16-2024 IntraOperative Documents [id number] IFF [facility] Postoperative Documentson Postoperative Documents [id number] IFF [facility] Consenton 01-13-2024 Consent [id number] F [facility] Discharge Instructionson Discharge Instructions [id number] F Benny [facility] Main OR Intraoperative Recor shari 01-13-2024 Main OR Intraoperative Record IntraOp Document Type FT Summary Primary Physician: Donavan Rene MD Finalized Date/Time: 01/13/24 11:48:18 Pt. Name: MEETA CARABALLO Fransisco Becker/Sex: 1995 Male Med Rec #: [id number] Physician: Donavan Rene MD Financial #: [id number] Pt. Type: O Room/Bed: / Admit/Disch: 01/12/24 08:23:23 - 01/12/24 23:59:59 Institution: Case Times FT Entry 1 Patient Times In Room 01/12/24 09:57:00 Out Room 01/12/24 10:17:00 Procedure Times Start 01/12/24 10:01:00 Stop 01/12/24 10:14:00 Anesthesia Times Start 01/12/24 09:57:00 Stop 01/12/24 10:17:00 Time at [place] 01/12/24 10:08:00 Last Modified By: Dottie Ayala RN 01/12/24 10:15:52 General Comments: 1005-EGD completed/AW RN 1006-Colonoscopy started/AW RN 01/13/24 Chart opened for charge review per Matt Wells RN. [place] Case Attendance FT Entry 1 Entry 2 Entry 3 Case Attendee Puneet HENAO, Oscar Botello, Sidney Rowland PLAYER DEVELOPMENT MANAGER, Daphnie Machado Role Performed Anesthesiologist Staff - Other Scrub - Primary Track Laying Equipment Operator Time In 01/12/24 09:57:00 01/12/24 09:57:00 01/12/24 09:57:00 Time Out 01/12/24 10:17:00 01/12/24 10:17:00 01/12/24 10:17:00 Procedure EGD AND COLONOSCOPY(.) EGD AND COLONOSCOPY(.) EGD AND COLONOSCOPY(.) Comments supervising help in room Last Modified By: Lucy SAWYER, Dottie Ayala RN, Dottie Butler RN 01/12/24 10:18:17 01/12/24 10:18:17 01/12/24 10:18:17 Entry 4 Entry 5 Case Attendee Edgard WILD, Dottie Marte RN Role Performed Surgeon - Primary Science Professor - Primary Time In 01/12/24 09:57:00 01/12/24 09:57:00 Time Out 01/12/24 10:17:00 01/12/24 10:17:00 Procedure EGD AND COLONOSCOPY(.) EGD AND COLONOSCOPY(.) Comments Last Modified By: Dottie Ayala RN, RN, Angela 01/12/24 10:18:17 01/12/24 10:18:17 Perioperative Protocols FT Pre-Care Text: Implements protective measures prior to operative or invasive procedure, confirms identity before the operative or invasive procedure, verifies operative procedure, surgical site, and laterality Entry 1 Procedure(s) EGD AND COLONOSCOPY(.) Patient Identity Birthday, ID Band Verified (select at Check, Patient least 2): Participation Consents / H and P Anesthesia Consent, Operative Site N/A Verified HandP, Surgery/Procedure Marking Verified Consent Surgical Site No Laterality Verified n/a Verified Procedure Verified Yes Correct Patient Yes Position Verified Availability Equipment, Medication Prep Dry n/a Verified (If Applicable) PreOp Antibiotic No Time Out Oscar Small Given Participants Rosmery Herrmann Micala E, Kashif PLAYER DEVELOPMENT MANAGER, Edgard Gill MD, Mohamad A., Dottie Ayala RN Time Out Complete 01/12/24 09:58:00 Outcomes Met? Yes Last Modified By: Dottie Ayala RN 01/12/24 10:05:43 Post-Care Text: The patient is free from signs and symptoms of injury caused by extraneous objects Allergy Information FT Pre-Care Text: Verifies allergies Entry 1 Allergies Reviewed? Yes Allergies Reviewed Self/Patient With Outcomes Met? Yes Last Modified By: Dottie Ayala RN 01/12/24 10:06:57 Post-Care Text: The patient received appropriate medication(s) safely administered during the perioperative period Surgical Procedures FT Entry 1 Procedure Description Procedure EGD AND COLONOSCOPY Modifiers . Surgeon Description EGD with duodenal and gastric biopsies. COLONOSCOPY with random colon biopsy Primary Procedure Yes Primary Surgeon Donavan Rene MD Start 01/12/24 10:01:00 Stop 01/12/24 10:14:00 Anesthesia Type General Surgical Service Gastroenterology Wound Class 2 - Clean-Contaminated Last Modified By: Dottie Ayala RN 01/12/24 10:26:56 General Case Data FT Pre-Care Text: Classifies surgical wound, implements aseptic technique, initiates traffic control Entry 1 Case Information OR ENDO 1 FT Case Level Level 2 Wound Class 2 - Clean-Contaminated Specialty Gastroenterology ASA Class 3 Preop Diagnosis UMBILICAL PAIN, Postop Same As Preop No UMBILICAL HERNIA, CHRONIC HEP C, CHRONIC DIARRHEA Postop Diagnosis EGD- esophagitis, Outcomes Met? Yes gastropathy, duodenitis. Colonoscopy-suboptimal prep Last Modified By: Dottie Ayala RN 01/12/24 10:26:52 Post-Care Text: The patient is free from signs and symptoms of infection Skin Assessment (Pre Procedure) FT Pre-Care Text: Implements protective measures to prevent skin/ tissue injury due to thermal or mechanical sources Evaluates for signs and symptoms of physical injury to skin and tissue Entry 1 Skin Integrity Intact, [place], Warm, and Skin Abnormality No Dry Outcomes Met? Yes Last Modified By: Dottie Ayala RN 01/12/24 10:09:40 Post-Care Text: The patient is free from signs and symptoms of injury caused by extraneous objects Patient Positioning FT Pre-Care Text: Identifies physical alterations that require additional precautions for procedure (more content not included)... [facility] Colonoscopy Procedure Report on 01-12-2024 Colonoscopy Procedure Report Patient: MEETA CARABALLO Age: 28 years Sex: Male : 1995 Associated Diagnoses: None Author: Donavan Rene MD Pre-Procedure Procedure Date 01/12/2024 10:16:00 . Procedure Type: Colonoscopy with biopsy. Procedure provider Performed by Donavan Rene MD. Current history and physical Documented on chart. Denies.. Past Medical History Active ADD - Attention deficit disorder (697015464) ADHD - Attention deficit disorder with hyperactivity (7344770943) Resolved IBS - Irritable bowel syndrome (8086197199): Resolved.. Family History No family history items have been selected or recorded.. Procedure History Denies.. Colorectal neoplasm risk assessment Average risk. Informed Consent After discussing the rationale, risks and benefits, and alternatives to this procedure, the patient provided signed consent for the procedure. Pre-procedure diagnosis: Diagnostic: Diarrhea. Medications (Selected) Inpatient Medications Ordered Lactated Ringers IV Dixie 1000 mL 1,000 mL: 1,000 mL, IV, 100 mL/hr, Routine, Start date 01/12/24 9:00:00 EDT, 10 hour(s), Total volume (mL): 1,000, 80 kg, 1.99, m2 Sodium Chloride 0.9% IV Dixie 1000 mL 1,000 mL: 1,000 mL, IV, 20 mL/hr, Routine, Start date 01/12/24 6:39:00 EDT, 50 hour(s), Total volume (mL): 1,000, 80 kg, 1.99, m2 Prescriptions Prescribed naproxen 500 mg Tab: 500 mg = 1 tab(s), Oral, BID, Take one tab by mouth two times a day, # 14 tab(s), Refills(s) 0, Pharmacy: [facility]/pharmacy #[id number], 178, cm, 07/18/20 11:50:00 EST, Height/Length Dosing, 66, kg, 07/18/20 11:50:00 EST, Weight Dosing Documented Medications Documented Invega: Oral, qMonth, Refills(s) 0 busPIRone: Oral, Daily, Refills(s) 0, Anxiety fluvoxamine 25 mg oral tablet: Refills(s) 0 hydrOXYzine pamoate 25 mg Cap: Oral, Daily, Refills(s) 0, Anxiety ketoconazole Top 2% Shampoo: Refill(s) 0 lamotrigine 100 mg Tab: 100 mg = 1 tab(s), Oral, Daily, Refills(s) 0 olanzapine 15 mg oral tablet: 15 mg = 1 tab(s), Oral, Once a day (at bedtime), Refills(s) 0, Psychosis olanzapine 5 mg Tab: 5 mg = 1 tab(s), Oral, Daily, Refills(s) 0, Psychosis trazodone: Oral, Once a day (at bedtime), Refills(s) 0, Sleep ASA Classification: Class II. . Monitoring: See anesthesia record. . Procedure The procedure was performed in the hospital. See anesthesia record for sedation given during procedure. The patient was positioned starting in the left lateral decubitus position. Endoscope type used was a pediatric-size. The endoscope was lubricated then introduced through the anus. The scope was advanced to the terminal ileum. No difficulties encountered during the procedure. The bowel preparation quality was poor and was inadequate. The patient tolerated the procedure well. Findings 1. Significant amount of stool prevented endoscopic exam. Biopsies obtained 2. Small internal hemorrhoids 3. Normal TI Images Procedure images: Rec1_hd_video_ [id number].jpg Rec1_hd_video_ [id number].jpg Rec1_hd_video_ [id number].jpg Rec1_hd_video_ [id number].jpg Rec1_hd_video_ [id number].jpg Rec1_hd_video_ [id number].jpg Rec1_hd_video_ [id number].jpg Rec1_hd_video_ [id number].jpg Rec1_hd_video_ [id number].jpg Rec1_hd_video_ [id number].jpg . Post-Procedure Complications: none. Estimated blood loss: none. Specimens: none. Devices/ implants: none left in place. Impression and Plan Poor prep Internal hemorrhoids Recommendations: Repeat colonoscopy:: At the age of 43 . Follow-up:: in clinic as scheduled. Diet:: Previous. Medication resumption:: Continue current medications, Avoid NSAIDs. Return to activities:: After 24 hours. Education and Follow-up: Counseled: Patient, Family. [facility] Comment on above: Other Comment: Deann cowan Attachment - attachment storage system not supported [id number] Can be viewed in source systemMissing Attachment - attachment storage system not supported [id number] Can be viewed in source systemMissing Attachment - attachment storage system not supported [id number] Can be viewed in source systemMissing Attachment - attachment storage system not supported [id number] Can be viewed in source systemMissing Attachment - attachment storage system not supported [id number] Can be viewed in source systemMissing Attachment - attachment storage system not supported [id number] Can be viewed in source systemMissing Attachment - attachment storage system not supported [id number] Can be viewed in source systemMissing Attachment - attachment storage system not supported [id number] Can be viewed in source systemMissing Attachment - attachment storage system not supported [id number] Can be viewed in source systemMissing Attachment - attachment storage system not supported [id number] Can be viewed in source system Consent for Treatmenton 12-24 Consent for Treatment [id number] F [facility] Discharge Instructionson Discharge Instructions MEETA CARABALLO :1995 Visit Date:01/12/2024 Inpatient Discharge Instructions Your Care Team Admitting Physician - Donavan Rene MD. Referring Physician - Donavan Rene MD. Reason for Your Visit UMBILICAL PAIN, UMBILICAL HERNIA, CHRONIC HEP C, CHRONIC DIARRHEA Your Diagnosis Chronic reflux esophagitis Duodenitis Gastropathy Hemorrhoids, internal Tests Performed Pathology Tissue Exam -- Results Pending -- Please visit your patient portal for your results or contact your primary care physician. This Is Your Medications List busPIRone fluvoxamine (fluvoxamine 25 mg oral tablet) hydrOXYzine (hydrOXYzine pamoate 25 mg Cap) ketoconazole topical (ketoconazole Top 2% Shampoo) lamotrigine (lamotrigine 100 mg Tab) naproxen (naproxen 500 mg Tab) olanzapine (olanzapine 15 mg oral tablet) olanzapine (olanzapine 5 mg Tab) paliperidone (Invega) pantoprazole (Protonix 40 mg Tab-DR) trazodone Procedure History Colonoscopy (01/12/2024). Discharge Vitals Temperature (Temporal Artery) 36.7 ?C Heart Rate (Monitored) 64 Respiratory Rate 22 Blood Pressure 137/80 Height 178 cm Weight 80 kg What to do next Instructions From Your Doctor Event Name Event Result Discharge Activity Resume normal activities in 24 hours Discharge Restrictions No driving for 24 hrs, Do not operate machinery or tools, Do not make important decisions for 24 hours, Do not drink alcoholic beverages for 24 hours Discharge Instructions Discharge Instructions New Follow Up Appointments after Discharge Follow Up with Edgard WILD, LAVELLE Billingsley, MED When: Comments: Office will call to schedule follow up appointment and/or review any pending biopsy results Call for any problems. Where: [facility], [address] [place] [address]- [phone] Medications What How Much When Instructions Next Dose New pantoprazole (Protonix 40 mg Tab-DR) 1 Tablets By Mouth Every day Refills: 4 Pickup at [facility]/pharmacy #[id number] Unchanged busPIRone By Mouth Every day Unchanged fluvoxamine (fluvoxamine 25 mg oral tablet) Unchanged hydrOXYzine (hydrOXYzine pamoate 25 mg Cap) By Mouth Every day Unchanged ketoconazole topical (ketoconazole Top 2% Shampoo) Unchanged lamotrigine (lamotrigine 100 mg Tab) 1 Tablets By Mouth Every day Unchanged naproxen (naproxen 500 mg Tab) 1 Tablets By Mouth 2 times a day Take one tab by mouth two times a day Unchanged olanzapine (olanzapine 15 mg oral tablet) 1 Tablets By Mouth Once a day (at bedtime) Unchanged olanzapine (olanzapine 5 mg Tab) 1 Tablets By Mouth Every day Unchanged paliperidone (Invega) By Mouth Once a month Unchanged trazodone By Mouth Once a day (at bedtime) Pharmacy Information [facility]/pharmacy #[id number]: [address], [place] [phone] Allergies No Known Allergies Problems Ongoing - Any problem that you are currently receiving treatment for. ADD - Attention deficit disorder ADHD - Attention deficit disorder with hyperactivity Bloating Chronic diarrhea Chronic hepatitis Dairy product intolerance Fatty food intolerance Frequent urination HCV (hepatitis C virus) History of drug abuse Smoker Historical - Any problem that you are no longer receiving treatment for. IBS - Irritable bowel syndrome Education Materials Colonoscopy Care After Surgery Please read the instructions outlined below and refer to this sheet in the next few weeks. These discharge instructions provide you with general information on caring for yourself after you leave the hospital. Your doctor may also give you specific instructions. While your treatment has been planned according to the most current medical practices available, unavoidable complications occasionally occur. If you have any problems or questions after discharge, please call your doctor. ACTIVITY You may resume your regular activity, but move at a slower pace for the next 24 hours. Take frequent rest periods for the next 24 hours. Walking will help get rid of the air and reduce the bloated feeling in your abdomen (belly). No driving for 24 hours (because of the anesthesia (medicine) used during the test). You may shower. Do not sign any important legal documents or operate any machinery for 24 hours (because of the anesthesia used during the test). NUTRITION Drink plenty of fluids. You may resume your normal diet as instructed by your doctor. Begin with a light meal and progress to your normal diet. Heavy or fried foods are harder to digest and may make you feel nauseated (sick to your stomach). Avoid alcoholic beverages for 24 hours or as instructed. MEDICATIONS You may resume your normal medications unless your doctor tells you otherwise. WHAT YOU CAN EXPECT TODAY Some feelings of bloating in the abdomen. Passage of more gas than usual. Spotting of blood in your stool or on the toilet paper. FOLL (more content not included)... [facility] Comment on above: Result Comment: Elec tronically Signed By: Sydney Mason RN\.kp\Date and Time Signed: 01/12/24 10:41 EDT [place] 01-12-2024 Esophagogastroduodenosco py Patient: MEETA CARABALLO Age: 28 years Sex: Male : 1995 Associated Diagnoses: None Author: Donavan Rene MD Pre-Procedure Procedure Date 01/12/2024 10:18:00 . Procedure Type: Esophagogastroduodenosco py with biopsy. Procedure provider Performed by Donavan Rene MD. Current history and physical Documented on chart. Informed Consent After discussing the rationale, risks and benefits, and alternatives to this procedure, the patient provided signed consent for the procedure. Pre-procedure diagnosis: Diarrhea. Medications (Selected) Inpatient Medications Ordered Lactated Ringers IV Dixie 1000 mL 1,000 mL: 1,000 mL, IV, 100 mL/hr, Routine, Start date 01/12/24 9:00:00 EDT, 10 hour(s), Total volume (mL): 1,000, 80 kg, 1.99, m2 Sodium Chloride 0.9% IV Dixie 1000 mL 1,000 mL: 1,000 mL, IV, 20 mL/hr, Routine, Start date 01/12/24 6:39:00 EDT, 50 hour(s), Total volume (mL): 1,000, 80 kg, 1.99, m2 Prescriptions Prescribed naproxen 500 mg Tab: 500 mg = 1 tab(s), Oral, BID, Take one tab by mouth two times a day, # 14 tab(s), Refills(s) 0, Pharmacy: [facility]/pharmacy #[id number], 178, cm, 07/18/20 11:50:00 EST, Height/Length Dosing, 66, kg, 07/18/20 11:50:00 EST, Weight Dosing Documented Medications Documented Invega: Oral, qMonth, Refills(s) 0 busPIRone: Oral, Daily, Refills(s) 0, Anxiety fluvoxamine 25 mg oral tablet: Refills(s) 0 hydrOXYzine pamoate 25 mg Cap: Oral, Daily, Refills(s) 0, Anxiety ketoconazole Top 2% Shampoo: Refill(s) 0 lamotrigine 100 mg Tab: 100 mg = 1 tab(s), Oral, Daily, Refills(s) 0 olanzapine 15 mg oral tablet: 15 mg = 1 tab(s), Oral, Once a day (at bedtime), Refills(s) 0, Psychosis olanzapine 5 mg Tab: 5 mg = 1 tab(s), Oral, Daily, Refills(s) 0, Psychosis trazodone: Oral, Once a day (at bedtime), Refills(s) 0, Sleep Anticoagulant/antiplatel et None. ASA Classification: Class II. . Monitoring: See anesthesia record. . Procedure The procedure was performed in the hospital. See anesthesia record for sedation given during procedure. The patient was positioned starting in the left lateral decubitus position and with safety measures. Endoscope type used was an adult-size, introduced orally, advanced to the 2nd portion of the duodenum. No difficulty was encountered during the procedure. Views were excellent. The patient tolerated the procedure well. Findings 1. Z-line at 40 cm. LA grade a esophagitis 2. Erythema with stigmata of recent bleeding in the antrum and body of the stomach. Biopsies of the stomach were taken to rule out H. pylori. 3. Erythematous mucosa in the duodenum bulb. Biopsies obtained Images Procedure images: Rec1_hd_video_ [id number].jpg Rec1_hd_video_ [id number].jpg Rec1_hd_video_ [id number].jpg Rec1_hd_video_ [id number].jpg Rec1_hd_video_ [id number].jpg Rec1_hd_video_ [id number].jpg Rec1_hd_video_ [id number].jpg . Post-Procedure Complications: none. Estimated blood loss: minimal. Specimens: sent to pathology. Devices/ implants: none left in place. Impression and Plan esophagitis Gastropathy Duodenitis Recommendations: -Resume previous diet -Resume home medications -Avoid NSAIDs -*Protonix 40 mg daily -Await pathology results, follow in GI clinic in 1-2 after discharge [facility] Comment on above: Other Comment: Deann cowan Attachment - attachment storage system not supported [id number] Can be viewed in source system Missing Attachment - attachment storage system not supported [id number] Can be viewed in source system Missing Attachment - attachment storage system not supported [id number] Can be viewed in source system Missing Attachment - attachment storage system not supported [id number] Can be viewed in source system Missing Attachment - attachment storage system not supported [id number] Can be viewed in source system Missing Attachment - attachment storage system not supported [id number] Can be viewed in source system Missing Attachment - attachment storage system not supported [id number] Can be viewed in source system Inpatient Patient Summaryon 01-12-2024 Inpatient Patient Summary [address] [address] [facility] Clinical Discharge Instructions PERSON INFORMATION Name: MEETA CARABALLO PHYSICIANS Admitting Physician: Donavan Rene MD Attending Physician: Donavan Rene MD PCP: JOSELYN CASTELLANO CNP Discharge Diagnosis: Comment: PATIENT EDUCATION INFORMATION Instructions: Colonoscopy, Care After Surgery [facility] (CUSTOM); Endoscopy, Care After Procedure [facility] ([facility]); Esophagitis; Duodenitis Medication Leaflets: Follow up: With: Address: When: Edgard WILD, Donavan Cates, [address], [address] [place] [phone] Comments: Office will call to schedule follow up appointment and/or review any pending biopsy results Call for any problems. MEDICATION LIST New Medications [id number], [address], [place] [phone], [phone] pantoprazole (Protonix 40 mg Tab-DR) 1 Tablets By Mouth every day. Refills: 4. Medications to Continue with No Changes Other Medications busPIRone By Mouth every day. fluvoxamine (fluvoxamine 25 mg oral tablet) hydrOXYzine (hydrOXYzine pamoate 25 mg Cap) By Mouth every day. ketoconazole topical (ketoconazole Top 2% Shampoo) lamotrigine (lamotrigine 100 mg Tab) 1 Tablets By Mouth every day. naproxen (naproxen 500 mg Tab) 1 Tablets By Mouth 2 times a day. Take one tab by mouth two times a day. Refills: 0. olanzapine (olanzapine 15 mg oral tablet) 1 Tablets By Mouth once a day (at bedtime). olanzapine (olanzapine 5 mg Tab) 1 Tablets By Mouth every day. paliperidone (Invega) By Mouth once a month. trazodone By Mouth once a day (at bedtime). Comment: B[facility] Main OR PACU I Recordon 12-24 Main OR PACU I Record PACU Phase I Docum ent Type FT Summary Primary Physician: Donavan Rene MD Finalized Date/Time: 01/12/24 12:32:59 Pt. Name: MEETA CARABALLO Fransisco Becker/Sex: 1995 Male Med Rec #: [id number] Physician: Donavan Rene MD Financial #: [id number] Pt. Type: O Room/Bed: / Admit/Disch: 01/12/24 08:23:23 - Institution: Case Times PACU I FT Pre-Care Text: Identifies barriers to communication and implements measures to provide psychological support Develops individualized plan of care, and ensures continuity of care Maintains patient's dignity and privacy, and maintains patient confidentiality Identifies and reports philosophical, cultural, and spiritual beliefs and values Identifies individual values and wishes concerning care Implements aseptic technique, and administers prescribed antibiotic therapy and immunizing agents as ordered Evaluates postoperative tissue perfusion Implements thermoregulation measures, and monitors body temperature Evaluates postoperative respiratory status Evaluates postoperative cardiac status Evaluates postoperative neurological status Assesses pain control, collaborated in initiating patient-controlled analgesia and implements alternative methods of pain control Verifies allergies, administers prescribed medications and solutions, evaluates response to medications Entry 1 In PACU I 01/12/24 10:19:00 Discharge from PACU 01/12/24 11:25:00 I Outcomes Met? Yes Last Modified By: Sydney Mason RN 01/12/24 12:32:43 Post-Care Text: The patient demonstrates knowledge of the expected response to the operative or invasive procedure The patient's care is consistent with the individualized perioperative plan of care The patient's right to privacy is maintained The patient's value system, lifestyle, ethnicity, and culture are considered, respected, and incorporated into the perioperative plan of care The patient participates in decisions affecting his or her perioperative plan of care The patient is free from signs and symptoms of infection The patient has wound/tissue perfusion consistent with or improved from baseline levels established preoperatively The patient is at or returning to normothermia at the conclusion of the immediate postoperative period The patient's respiratory function is consistent with or improved from baseline levels established preoperatively The patient's cardiovascular status is consistent with or improved from baseline levels established preoperatively The patient's cardiovascular status is consistent with or improved from baseline levels established preoperatively The patient demonstrates and/or reports adequate pain control throughout the perioperative period The patient received appropriate medication(s), safely administered during the perioperative period Acuity Level PACU I FT Entry 1 Start Time 01/12/24 10:19:00 Stop Time 01/12/24 11:25:00 Acuity Level Acuity Level I Last Modified By: Sydney Mason RN 01/12/24 12:32:55 Finalized By: Sydney Mason RN Document Signatures Signed By: Sydney Mason RN 01/12/24 12:32 Normal [facility] Main OR Preoperative Recordo n 01-12-2024 Main OR Preoperative Record Holding Area Document Type FT Summary Primary Physician: Donavan Rene MD Finalized Date/Time: 01/12/24 09:01:50 Pt. Name: MEETA CARABALLO/Sex: 1995 Male Med Rec #: [id number] Physician: Donavan Rene MD Financial #: [id number] Pt. Type: O Room/Bed: / Admit/Disch: 01/12/24 08:23:23 - Institution: Case Times Holding FT Pre-Care Text: Verifies consent for planned procedure, identifies individual values and wishes concerning care, includes family members in perioperative teaching Secures patient's records' belongings, and valuables, maintains patient's dignity and privacy, and maintains patient confidentiality Entry 1 In Holding 01/12/24 08:45:00 Outcomes Met? Yes Last Modified By: Dawn Liang RN 01/12/24 08:48:48 Post-Care Text: The patient participates in decisions affecting his or her perioperative plan of care The patient's right to privacy is maintained Surgery Checklist FT Entry 1 Patient Birthday, ID Band Procedure History and Physical, Identification: Check, Patient Verification: Surgical Consent, With Participation Patient NPO after Midnight: Yes Results Reviewed Green Comments: Personal Items None Complaints of Pain: No Comment: Pain Comment: Denies Operative Site n/a Marking: Availability Equipment Verified: Does Patient Smoke Yes If Yes to Smoking. 1ppd Cigars or Cigarettes. How much per day? Patient states Yes Comment - Adult Sister postop adult Supervision supervision available Case Cancelled in No Holding Area see comments below for reason Last Modified By: Dawn Liang RN 01/12/24 08:49:39 General Comments: Pt completed prep at 0600 and remained NPO since/SILVERIO LOWRY Finalized By: Dawn Liang RN Document Signatures Signed By: Dawn Liang RN 01/12/24 09:01 Normal [facility] Monitor Recordon 01-12-2024 Monitor Record [id number] FF Normal [facility] Monitor Record [id number] FF [facility] Outpatient Surgery Discharge Instructionon 01-12-2024 Outpatient Surgery Discharge Instruction [place] [id number] Patient Discharge Instructions PERSON INFORMATION Name: MEETA CARABALLO Date of : 1995 Current Date: 01/12/2024 10:41:07 PHYSICIANS Admitting Physician: Donavan Rene MD Discharge Diagnosis: SHARI CARABALLOSHIMA Moody has been given the following list of follow-up instructions, prescriptions, and patient education materials: Discharge Activity: Resume normal activities in 24 hours Discharge Restrictions: No driving for 24 hrs, Do not operate machinery or tools, Do not make important decisions for 24 hours, Do not drink alcoholic beverages for 24 hours IF UNABLE TO CONTACT YOUR PHYSICIAN AND YOU FEEL IT IS AN EMERGENCY, GO TO THE NEAREST EMERGENCY ROOM OR CALL 911 I, MEETA CARABALLO, have received the attached patient education materials/instructions and have verbalized understanding: May we do a follow up call? Yes No I was present when discharge instructions were given Patient Signature Date Clinican/Nurse Signature Date Follow up: With: Address: When: Edgard WILD, LAVELLE Billingsley, [address], [address] [place] [address] [phone] Comments: Office will call to schedule follow up appointment and/or review any pending biopsy results Call for any problems. Pharmacy Information: You may receive a survey from [employer] asking you to rate your care experience. Your feedback is important and will help us understand what we do well and how we can improve the quality of care we provide to you, your loved ones and our community. It?s an honor to serve you. Thank you for choosing [facility] HERE ARE THE MEDICATION CHANGES THAT OCCURRED DURING YOUR HOSPITAL STAY New Medications [id number], [address], [place] [id number], [phone] pantoprazole (Protonix 40 mg Tab-DR) 1 Tablets By Mouth every day. Refills: 4. Medications to Continue with No Changes Other Medications busPIRone By Mouth every day. fluvoxamine (fluvoxamine 25 mg oral tablet) hydrOXYzine (hydrOXYzine pamoate 25 mg Cap) By Mouth every day. ketoconazole topical (ketoconazole Top 2% Shampoo) lamotrigine (lamotrigine 100 mg Tab) 1 Tablets By Mouth every day. naproxen (naproxen 500 mg Tab) 1 Tablets By Mouth 2 times a day. Take one tab by mouth two times a day. Refills: 0. olanzapine (olanzapine 15 mg oral tablet) 1 Tablets By Mouth once a day (at bedtime). olanzapine (olanzapine 5 mg Tab) 1 Tablets By Mouth every day. paliperidone (Invega) By Mouth once a month. trazodone By Mouth once a day (at bedtime). PATIENT EDUCATION INFORMATION Instructions: Colonoscopy Care After Surgery Please read the instructions outlined below and refer to this sheet in the next few weeks. These discharge instructions provide you with general information on caring for yourself after you leave the hospital. Your doctor may also give you specific instructions. While your treatment has been planned according to the most current medical practices available, unavoidable complications occasionally occur. If you have any problems or questions after discharge, please call your doctor. ACTIVITY You may resume your regular activity, but move at a slower pace for the next 24 hours. Take frequent rest periods for the next 24 hours. Walking will help get rid of the air and reduce the bloated feeling in your abdomen (belly). No driving for 24 hours (because of the anesthesia (medicine) used during the test). You may shower. Do not sign any important legal documents or operate any machinery for 24 hours (because of the anesthesia used during the test). NUTRITION Drink plenty of fluids. You may resume your normal diet as instructed by your doctor. Begin with a light meal and progress to your normal diet. Heavy or fried foods are harder to digest and may make you feel nauseated (sick to your stomach). Avoid alcoholic beverages for 24 hours or as instructed. MEDICATIONS You may resume your normal medications unless your doctor tells you otherwise. WHAT YOU CAN EXPECT TODAY Some feelings of bloating in the abdomen. Passage of more gas than usual. Spotting of blood in your stool or on the toilet paper. FOLLOW-UP Your doctor will discuss the results of your test with you. SEEK IMMEDIATE MEDICAL ATTENTION IF: There is more than a spotting of blood in your stool. There is abdominal distention (your abdomen is swollen). There is vomiting. You have a temperature over 101.5 F. There is abdominal pain or discomfort that is severe or gets worse throughout the day. Endoscopy Care After (more content not included)... Normal [facility] Patient Education - Texton 0 01-12-2024 Patient Education - Text Colonoscopy Care After Surgery Please read the instructions outlined below and refer to this sheet in the next few weeks. These discharge instructions provide you with general information on caring for yourself after you leave the hospital. Your doctor may also give you specific instructions. While your treatment has been planned according to the most current medical practices available, unavoidable complications occasionally occur. If you have any problems or questions after discharge, please call your doctor. ACTIVITY You may resume your regular activity, but move at a slower pace for the next 24 hours. Take frequent rest periods for the next 24 hours. Walking will help get rid of the air and reduce the bloated feeling in your abdomen (belly). No driving for 24 hours (because of the anesthesia (medicine) used during the test). You may shower. Do not sign any important legal documents or operate any machinery for 24 hours (because of the anesthesia used during the test). NUTRITION Drink plenty of fluids. You may resume your normal diet as instructed by your doctor. Begin with a light meal and progress to your normal diet. Heavy or fried foods are harder to digest and may make you feel nauseated (sick to your stomach). Avoid alcoholic beverages for 24 hours or as instructed. MEDICATIONS You may resume your normal medications unless your doctor tells you otherwise. WHAT YOU CAN EXPECT TODAY Some feelings of bloating in the abdomen. Passage of more gas than usual. Spotting of blood in your stool or on the toilet paper. FOLLOW-UP Your doctor will discuss the results of your test with you. SEEK IMMEDIATE MEDICAL ATTENTION IF: There is more than a spotting of blood in your stool. There is abdominal distention (your abdomen is swollen). There is vomiting. You have a temperature over 101.5 F. There is abdominal pain or discomfort that is severe or gets worse throughout the day. Endoscopy Care After Procedure Please read the instructions outlined below and refer to this sheet in the next few weeks. These discharge instructions provide you with general information on caring for yourself after you leave the hospital. Your doctor may also give you specific instructions. While your treatment has been planned according to the most current medical practices available, unavoidable complications occasionally occur. If you have any problems or questions after discharge, please call your doctor. ACTIVITY ? You may resume your regular activity but move at a slower pace for the next 24 hours. ? Take frequent rest periods for the next 24 hours. ? Walking will help expel (get rid of) the air and reduce the bloated feeling in your abdomen. ? No driving for 24 hours (because of the anesthesia (medicine) used during the test). ? You may shower. ? Do not sign any important legal documents or operate any machinery for 24 hours (because of the anesthesia used during the test). NUTRITION ? Drink plenty of fluids. ? You may resume your normal diet. ? Begin with a light meal and progress to your normal diet. ? Avoid alcoholic beverages for 24 hours or as instructed by your caregiver. MEDICATIONS ? You may resume your normal medications unless your caregiver tells you otherwise. WHAT YOU CAN EXPECT TODAY ? You may experience abdominal discomfort such as a feeling of fullness or ?gas? pains. FOLLOW-UP ? Your doctor will discuss the results of your test with you. seek immediate medical attention if any of the following occur: ? Excessive nausea (feeling sick to your stomach) and/or vomiting. ? Severe abdominal pain and distention (swelling). ? Trouble swallowing. ? Temperature over 100 F (37.8? C). ? Rectal bleeding or vomiting of blood. Document Released: 03/25/2005 Document Re-Released: 02/02/2007 ExitCare? Patient Information ?2009 [employer]. Gastroenterology Esophagitis Esophagitis is inflammation of the esophagus. The esophagus is the tube that carries food from the mouth to the stomach. Esophagitis can cause soreness or pain in the esophagus. This condition can make it difficult and painful to swallow. What are the causes? Most causes of esophagitis are not serious. Common causes of this condition include: ? Gastroesophageal reflux disease (GERD). This is when stomach contents move back up into the esophagus (reflux). ? Repeated vomiting. ? An allergic reaction, especially caused by food allergies (eosinophilic esophagitis). ? Injury to the esophagus by swallowing large pills with or without water, or swallowing certain types of medicines. ? Swallowing harmful chemicals, such as household cleaning products. ? Drinking a lot of alcohol. ? An infection of the esophagus. This most often occurs in people who have a weakened immune system. ? Radiation or chemotherapy treatment for cancer. ? Certain diseases such as sarcoidosis, Crohn's disease, and scleroderm (more content not included)... Normal [facility] Progress Note-Nurseon 2023 Progress Note-Nurse Zofran 4 mg IV given per Montez HENAO for pt c/o nausea Normal [facility] Progress Note-Physicianon Progress Note-Physician Patient: DO CHANA CARABALLO Age: 28 years Sex: Male : 1995 Associated Diagnoses: None Author: Everton Chiu DO Postoperative Information Postoperative disposition: Postoperative disposition: To PACU. Anesthetic utilized: General. Health Status Allergies: Allergic Reactions (Selected) No Known Allergies Current medications: (Selected) Inpatient Medications Ordered Lactated Ringers IV Dixie 1000 mL 1,000 mL: 1,000 mL, IV, 100 mL/hr, Routine, Start date 01/12/24 9:00:00 EDT, 10 hour(s), Total volume (mL): 1,000, 80 kg, 1.99, m2 Sodium Chloride 0.9% IV Dixie 1000 mL 1,000 mL: 1,000 mL, IV, 20 mL/hr, Routine, Start date 01/12/24 6:39:00 EDT, 50 hour(s), Total volume (mL): 1,000, 80 kg, 1.99, m2 Prescriptions Prescribed Protonix 40 mg Tab-DR: 40 mg = 1 tab(s), Oral, Daily, # 90 tab(s), Refills(s) 4, Pharmacy: [facility] #[id number], 178, cm, 01/12/24 8:50:00 EDT, Height/Length Dosing, 80, kg, 01/12/24 8:50:00 EDT, Weight Dosing naproxen 500 mg Tab: 500 mg = 1 tab(s), Oral, BID, Take one tab by mouth two times a day, # 14 tab(s), Refills(s) 0, Pharmacy: [facility]/pharmacy #[id number], 178, cm, 07/18/20 11:50:00 EST, Height/Length Dosing, 66, kg, 07/18/20 11:50:00 EST, Weight Dosing Documented Medications Documented Invega: Oral, qMonth, Refills(s) 0 busPIRone: Oral, Daily, Refills(s) 0, Anxiety fluvoxamine 25 mg oral tablet: Refills(s) 0 hydrOXYzine pamoate 25 mg Cap: Oral, Daily, Refills(s) 0, Anxiety ketoconazole Top 2% Shampoo: Refill(s) 0 lamotrigine 100 mg Tab: 100 mg = 1 tab(s), Oral, Daily, Refills(s) 0 olanzapine 15 mg oral tablet: 15 mg = 1 tab(s), Oral, Once a day (at bedtime), Refills(s) 0, Psychosis olanzapine 5 mg Tab: 5 mg = 1 tab(s), Oral, Daily, Refills(s) 0, Psychosis trazodone: Oral, Once a day (at bedtime), Refills(s) 0, Sleep, Home Medications (11) Active busPIRone , Oral, Daily fluvoxamine 25 mg oral tablet hydrOXYzine pamoate 25 mg Cap , Oral, Daily Invega , Oral, qMonth ketoconazole Top 2% Shampoo lamotrigine 100 mg Tab 100 mg = 1 tab(s), Oral, Daily naproxen 500 mg Tab 500 mg = 1 tab(s), Oral, BID olanzapine 15 mg oral tablet 15 mg = 1 tab(s), Oral, Once a day (at bedtime) olanzapine 5 mg Tab 5 mg = 1 tab(s), Oral, Daily Protonix 40 mg Tab-DR 40 mg = 1 tab(s), Oral, Daily trazodone , Oral, Once a day (at bedtime) Problem list: All Problems ADD - Attention deficit disorder / SNOMED CT 136429519 / Confirmed ADHD - Attention deficit disorder with hyperactivity / SNOMED CT 0002332235 / Confirmed Bloating / SNOMED CT 404321492 / Confirmed Chronic diarrhea / SNOMED CT 557044412 / Confirmed Chronic hepatitis / SNOMED CT 571104753 / Confirmed Dairy product intolerance / SNOMED CT 9192760221 / Confirmed Fatty food intolerance / SNOMED CT 1302429194 / Confirmed Frequent urination / SNOMED CT 091113521 / Confirmed HCV (hepatitis C virus) / SNOMED CT 71807076 / Confirmed History of drug abuse / SNOMED CT 5945914799 / Confirmed Smoker / SNOMED CT [id number]- [id number] / Confirmed Added secondary to documentation in Social History. Resolved: IBS - Irritable bowel syndrome / SNOMED CT 3154239074 Physical Examination Vital Signs 01/12/2024 10:34 EDT Heart Rate Monitored 68 bpm Respiratory Rate Monitored 11 br/min Systolic Blood Pressure 133 mmHg Diastolic Blood Pressure 84 mmHg Blood Pressure Location Left arm Mean Arterial Pressure, Cuff 100 mmHg SpO2 98 % 01/12/2024 10:29 EDT Heart Rate Monitored 74 bpm Respiratory Rate Monitored 11 br/min Systolic Blood Pressure 139 mmHg Diastolic Blood Pressure 91 mmHg HI Blood Pressure Location Left arm Mean Arterial Pressure, Cuff 107 mmHg SpO2 97 % 01/12/2024 10:24 EDT Heart Rate Monitored 64 bpm Respiratory Rate Monitored 22 br/min Systolic Blood Pressure 137 mmHg Diastolic Blood Pressure 80 mmHg Blood Pressure Location Left arm Mean Arterial Pressure, Cuff 99 mmHg SpO2 98 % 01/12/2024 10:19 EDT Temperature Temporal Artery 36.8 DegC Heart Rate Monitored 67 bpm Respiratory Rate Monitored 22 br/min Systolic Blood Pressure 152 mmHg HI Diastolic Blood Pressure 107 mmHg HI Blood Pressure Location Left arm Mean Arterial Pressure, Cuff 122 mmHg SpO2 99 % 01/12/2024 10:12 EDT Systolic Blood Pressure 158 mmHg mmHg Diastolic Blood Pressure 102 mmHg mmHg 01/12/2024 10:10 EDT Heart Rate Monitored 85 bpm bpm Respiratory Rate Monitored 29 br/min br/min SpO2 98 % % 01/12/2024 10:09 EDT Systolic Blood Pressure 160 mmHg mmHg Diastolic Blood Pressure 106 mmHg mmHg 01/12/2024 10:05 EDT Heart Rate Monitored 93 bpm bpm Systolic Blood Pressure 165 mmHg mmHg Diastolic Blood Pressure 108 mmHg mmHg SpO2 98 % % 01/12/2024 10:03 EDT Systolic Blood Pressure 180 mmHg mmHg Diastolic Blood Pressure 136 mmHg mmHg 01/12/2024 10:00 EDT Heart Rate Monitored 58 bpm bpm Respiratory Rate Monitored 10 br/min br/min Systolic Blood Pressure 146 mmHg mmHg Diastolic Bloo (more content not included)... Normal [facility] Comment on above: Result Comment: Elec tronically Signed By: Everton Chiu DO\.br\Date and Time Signed: 01/12/24 11:07 EDT Progress Note-Physician Patient: DO TRINI CARABALLOJigna Fransisco Age: 28 years Sex: Male : 1995 Associated Diagnoses: None Author: Everton Chiu DO Preoperative Information Anesthesia history: Patient history: None. Family history+: None. Anesthesia results Informed consent: Signed by patient. Including risks, benefits, and alternatives related to the: Anesthetic plan, Postoperative pain management plan. Re-evaluation prior to induction: Everton Chiu DO. Health Status Allergies: Allergic Reactions (Selected) No Known Allergies, Allergies (1) Active Severity Reaction No Known Allergies None Documented Current medications: (Selected) Inpatient Medications Ordered Lactated Ringers IV Dixie 1000 mL 1,000 mL: 1,000 mL, IV, 100 mL/hr, Routine, Start date 01/12/24 9:00:00 EDT, 10 hour(s), Total volume (mL): 1,000, 80 kg, 1.99, m2 Sodium Chloride 0.9% IV Dixie 1000 mL 1,000 mL: 1,000 mL, IV, 20 mL/hr, Routine, Start date 01/12/24 6:39:00 EDT, 50 hour(s), Total volume (mL): 1,000, 80 kg, 1.99, m2 Prescriptions Prescribed naproxen 500 mg Tab: 500 mg = 1 tab(s), Oral, BID, Take one tab by mouth two times a day, # 14 tab(s), Refills(s) 0, Pharmacy: [facility]/pharmacy #[id number], 178, cm, 07/18/20 11:50:00 EST, Height/Length Dosing, 66, kg, 07/18/20 11:50:00 EST, Weight Dosing Documented Medications Documented Invega: Oral, qMonth, Refills(s) 0 busPIRone: Oral, Daily, Refills(s) 0, Anxiety fluvoxamine 25 mg oral tablet: Refills(s) 0 hydrOXYzine pamoate 25 mg Cap: Oral, Daily, Refills(s) 0, Anxiety ketoconazole Top 2% Shampoo: Refill(s) 0 lamotrigine 100 mg Tab: 100 mg = 1 tab(s), Oral, Daily, Refills(s) 0 olanzapine 15 mg oral tablet: 15 mg = 1 tab(s), Oral, Once a day (at bedtime), Refills(s) 0, Psychosis olanzapine 5 mg Tab: 5 mg = 1 tab(s), Oral, Daily, Refills(s) 0, Psychosis trazodone: Oral, Once a day (at bedtime), Refills(s) 0, Sleep, Home Medications (10) Active busPIRone , Oral, Daily fluvoxamine 25 mg oral tablet hydrOXYzine pamoate 25 mg Cap , Oral, Daily Invega , Oral, qMonth ketoconazole Top 2% Shampoo lamotrigine 100 mg Tab 100 mg = 1 tab(s), Oral, Daily naproxen 500 mg Tab 500 mg = 1 tab(s), Oral, BID olanzapine 15 mg oral tablet 15 mg = 1 tab(s), Oral, Once a day (at bedtime) olanzapine 5 mg Tab 5 mg = 1 tab(s), Oral, Daily trazodone , Oral, Once a day (at bedtime) , Medications (2) Active Scheduled: (0) Continuous: (2) Lactated Ringers 1,000 mL 1,000 mL, IV, 100 mL/hr Sodium Chloride 0.9% 1,000 mL 1,000 mL, IV, 20 mL/hr PRN: (0) Problem list: All Problems ADD - Attention deficit disorder / SNOMED CT 898166250 / Confirmed ADHD - Attention deficit disorder with hyperactivity / SNOMED CT 1144998369 / Confirmed Bloating / SNOMED CT 748590638 / Confirmed Chronic diarrhea / SNOMED CT 485720232 / Confirmed Chronic hepatitis / SNOMED CT 906436695 / Confirmed Dairy product intolerance / SNOMED CT 3883037370 / Confirmed Fatty food intolerance / SNOMED CT 5568436396 / Confirmed Frequent urination / SNOMED CT 723702018 / Confirmed HCV (hepatitis C virus) / SNOMED CT 01568251 / Confirmed History of drug abuse / SNOMED CT 9356953641 / Confirmed Smoker / SNOMED CT [id number] / Confirmed Added secondary to documentation in Social History. Resolved: IBS - Irritable bowel syndrome / SNOMED CT 4090735596, Active Problems (11) ADD - Attention deficit disorder ADHD - Attention deficit disorder with hyperactivity Bloating Chronic diarrhea Chronic hepatitis Dairy product intolerance Fatty food intolerance Frequent urination HCV (hepatitis C virus) History of drug abuse Smoker Histories Past Medical History: Active ADD - Attention deficit disorder (056015188) ADHD - Attention deficit disorder with hyperactivity (4240559079) Resolved IBS - Irritable bowel syndrome (3436235582): Resolved. Family History: No family history items have been selected or recorded. Procedure history: Denies. Social History Social & Psychosocial Habits Alcohol 01/07/2024 Use: Current Type: Beer, Liquor Frequency: 1-2 times per week 01/07/2024 Use: Current Frequency: 3-5 times per week 01/07/2024 Use: Current Comment: intoxicated - 02/28/2019 01:19 - Derrick SAWYER, Steffi Maki 01/07/2024 Type: Beer, Liquor Comment: states 1 beer at 5pm. drinks any chance I get. - 05/03/2019 22:41 - Rajwinder Ledbetter RN 01/07/2024 Risk Assessment: High Risk 01/07/2024 Use: Current Type: Beer, Liquor Frequency: 1-2 times per week Has alcohol use interfered with work or home life? No Do you ever drink more than intended? No Has anyone been hurt or at risk by your drinking? No Ready to change: No Concerns about alcohol use in household: No Comment: Pt sts he socially drinks alcohol. - 10/09/2015 19:28 - Prakash SAWYER, Carlotta Machado Substance Abuse 01/07/2024 Risk Assessment: Denies Substance Abuse 01/07/2024 Use: Current Co (more content not included)... [facility] Comment on above: Result Comment: Elec tronically Signed By: Everton Chiu DO\.br\Date and Time Signed: 01/12/24 09:01 EDT Consent for Procedure/Surger yon 01-09-2024 Consent for Procedure/Surgery [id number] FF [facility] Ambulatory Visit Summaryon 0 01-07-2024 Ambulatory Visit Summary MEETA CARABALLO :1995 Visit Date:01/07/2024 Ambulatory Visit Instructions Your Diagnosis History of drug abuse Chronic diarrhea, Chronic diarrhea Dairy product intolerance, Fatty food intolerance Chronic hepatitis HCV (hepatitis C virus) Bloating Frequent urination Chronic hepatitis C Umbilical hernia Umbilical pain Your Care Team Attending Physician - Edgard WILD, Donavan Cates Primary Care Physician - JOSELYN CASTELLANO CNP This Is Your Medications List Contact prescribing physician if questions or concerns busPIRone fluvoxamine (fluvoxamine 25 mg oral tablet) hydrOXYzine (hydrOXYzine pamoate 25 mg Cap) ketoconazole topical (ketoconazole Top 2% Shampoo) lamotrigine (lamotrigine 100 mg Tab) naproxen (naproxen 500 mg Tab) olanzapine (olanzapine 15 mg oral tablet) olanzapine (olanzapine 5 mg Tab) paliperidone (Invega) trazodone Procedures Performed Denies. Discharge Vitals Heart Rate (Peripheral) 73 Respiratory Rate 16 Blood Pressure 126/83 Height 178 cm Height 70 in Weight 80 kg Weight 176 lb BMI 25.25 What to do next You Need to Complete the Following 5 HIAA 24 Hour Urine, Urine, Routine collect, 01/07/24, Order for future visit, Nurse collect, Chronic diarrhea Invalid Interpretation Code Umbilical hernia [facility] G[facility]ology Office/Clin ic Noteon 01-07-2024 Gastroenterology Office/Clinic Note Chief Complaint hep c HPI Staff This is a 28 year old male who presents today for a follow-up from 02/06/2023 office visit for Hep C and IBS w/ diarrhea Dr Pope Assessment/Plan: 02/06/2023 1. Hepatitis C with hepatic coma (B19.21: Unspecified viral hepatitis C with hepatic coma) The patient has a history of chronic hepatitis C diagnosed many years ago. His hepatitis C was confirmed recently with positive hepatitis C RNA. His viral load is 1.1 million. He is negative for HIV and hepatitis B. He is asymptomatic at this point. I will proceed with hepatitis C genotype. I will also do urine toxicology and FibroScan to assess for fibrosis. He is hoping to start treatment soon. 2. Irritable bowel syndrome with diarrhea (K58.0: Irritable bowel syndrome with diarrhea) This is fairly controlled with symptomatic treatment. He was advised to continue with Imodium as needed for diarrhea, Bentyl as needed for abdominal cramps, probiotics daily, and IBgard. Liver Studies HCV Ab: >11.0 High (09/26/22) Hep A IgM: Negative (09/26/22) Hep A IgM: Negative (10/14/18) Hep A IgM: Negative (11/08/17) Hep B Core IgM: Negative (09/26/22) Hep B Core IgM: Negative (10/14/18) Hep B Core IgM: Negative (11/08/17) Hep Bs Ag: Negative (09/26/22) Hep Bs Ag: Negative (10/14/18) Hep Bs Ag: Negative (11/08/17) History of Present Illness I have reviewed HPI staff note, most recent labs and imaging, more than 30 minutes spent reviewing the chart, during encounter, placing orders and counseling the patient. Pt followed up last month for HCV but lost insurance Had HCV for 7-10 years through infected needle pt has a hx of IBS- D and he takes Imodium bottle every day [employer] bothers him . milk and ice cream bothers him pt could go 3-5 times every day pt with some irritation sometimes pt put on few pounds pt feels bloated pt with frequent urination Review of Systems PHQ Score Initial Depression Screen Score: 0 SCORE All systems reviewed, negative except as mentioned above Physical Exam Vitals & Measurements HR: 73(Peripheral) RR: 16 BP: 126/83 HT: 70 in HT: 178 cm WT: 80 kg WT: 176 lb BMI: 25.25 General: alert, no acute distress HEENT: atraumatic normocephalic Cardiovascular: regular rate and rhythm, normal peripheral perfusion Respiratory: Lungs CTA, respirations non labored Extremities: no deformity, no trauma Abdomen: Benign, soft, tender, umbilical hernia, nondistended Assessment/Plan 1. 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 Chronic diarrhea, (K52.9: Noninfective gastroenteritis and colitis, unspecified)Chronic diarrhea Ordered: 5 HIAA 24 Hour Urine Calprotectin, Fecal Celiac Disease Comprehensive Clostridium Difficile PCR Colonoscopy (Hospital Procedure) CT Abdomen/Pelvis w/contrast (enterography) EGD Endoscopy (Hospital Procedure) Enteric Panel by PCR HCV FibroSure HCV Genotyping Non Reflex HCV RNA by PCR, Qn Rfx Cassandra HCV RT-PCR, Quant (Non-Graph) Hepatitis A Antibody IgM Hepatitis A Virus (HAV) Antibody, Total Hepatitis B Surface Antibody Hepatitis B Surface Antigen HIV Screen 4th Generation wRfx IgA, Quant. O & P Exam, Routine Pancreatic Elastase, Fecal Thyroid Stimulating Hormone 3. Dairy product intolerance, (K90.49: Malabsorption due to intolerance, not elsewhere classified)Fatty food intolerance Ordered: HCV FibroSure HCV Genotyping Non Reflex HCV RNA by PCR, Qn Rfx Cassandra HCV RT-PCR, Quant (Non-Graph) Hepatitis A Antibody IgM Hepatitis A Virus (HAV) Antibody, Total Hepatitis B Surface Antibody Hepatitis B Surface Antigen HIV Screen 4th Generation wRfx 5. Chronic hepatitis (K73.9: Chronic hepatitis, unspecified) 6. HCV (hepatitis C virus) (B19.20: Unspecified viral hepatitis C without hepatic coma) 7. Bloating (R14.0: Abdominal distension (gaseous)) 8. Frequent urination (R35.0: Frequency of micturition) Chronic hepatitis C (B18.2: Chronic viral hepatitis C) Ordered: 5 HIAA 24 Hour Urine Calprotectin, Fecal Celiac Disease Comprehensive Clostridium Difficile PCR Colonoscopy (Hospital Procedure) CT Abdomen/Pelvis w/contrast (enterography) EGD Endoscopy (Hospital Procedure) Enteric Panel by PCR IgA, Quant. O & P Exam, Routine Pancreatic Elastase, Fecal Thyroid Stimulating Hormone Umbilical hernia (K42.9: Umbilical hernia without obstruction or gangrene) Ordered: 5 HIAA 24 Hour Urine Calprotectin, Fecal Celiac Disease Comprehensive Clostridium Difficile PCR Colonoscopy (Hospital Procedure) CT Abdomen/Pelvis w/contrast (enterography) EGD Endoscopy (Hospital Procedure) Enteric Panel by (more content not included)... Normal [facility] Comment on above: Result Comment: Elec tronically Signed By: Edgard WILD, Donavan Cates\.br\Date and Time Signed: 01/07/24 14:13 EDT CBC AUTO DIFFon 11-06-2022 BASO # 0.1 103/ul Normal 0.0-0.1 [facility] Comment on above: Performed By: #### C MP #### [facility] [address] [address] [address] Alfie Mcnulty Basophils/100 WBC (Bld) 0.3 % Normal 0.2-2.0 [facility] Comment on above: Performed By: #### C MP #### [facility] [address] [address] [address] Alfie Mcnulty EO # 0.0 103/ul Normal 0.0-0.7 [facility] Comment on above: Performed By: #### C MP #### [facility] [address] [address] [address] Alfie Mcnulty Eosinophils/100 WBC (Bld) 0.0 % Critically low 0.9-7.0 [facility] Comment on above: Performed By: #### C MP #### [facility] [address] [address] [address] Alfie Mcnulty Erythrocyte distribution width (RBC) [Ratio] 11.9 % Normal 11.0-15.0 [facility] Comment on above: Performed By: #### C MP #### [facility] [address] [place] [address] Dr. Alfie Mcnulty Hematocrit (Bld) [Volume fraction] 44.9 % Normal 42.0-54.0 [facility] Comment on above: Performed By: #### C MP #### [facility] [address] [place] [address] Dr. Alfie Mcnulty Hemoglobin (Bld) [Mass/Vol] 16.2 g/dL Normal 14.0-18.0 [facility] Comment on above: Performed By: #### C MP #### [facility] [address] [address] [address] Alfie Mcnulty IG # 0.11 10e3/ul Critically high 0.00-0.03 [facility] Comment on above: Performed By: #### C MP #### [facility] [address] [address] [address] Alfie Mcnulty IG % 0.6 % Critically high 0.0-0.5 [facility] Comment on above: Performed By: #### C MP #### [facility] [address] [address] [address] Alfie Mcnulty LYMPH # 0.8 103/ul Critically low 1.2-3.8 [facility] Comment on above: Performed By: #### C MP #### [facility] [address] [address] [address] Alife Mcnulty Lymphocytes/100 WBC (Bld) 4.4 % Critically low 20.5-60.0 [facility] Comment on above: Performed By: #### C MP #### [facility] [address] [address] [address] Alfie Mcnulty MANUAL DIFF REQ NO Normal [facility] Comment on above: Performed By: #### C MP #### [facility] [address] [address] [address] Alfie Mcnulty MCH (RBC) [Entitic mass] 29.9 pg Normal 25.9-34.0 [facility] Comment on above: Performed By: #### C MP #### [facility] [address] [place] [address] Dr. Alfie Mcnulty MCHC (RBC) [Mass/Vol] 36.1 g/dL Critically high 29.9-35.2 [facility] Comment on above: Performed By: #### C MP #### [facility] [address] [place] [address] Dr. Alfie Mcnulty MCV (RBC) [Entitic vol] 83.0 fL Normal 80.0-94.0 [facility] Comment on above: Performed By: #### C MP #### [facility] [address] [place] [address] Dr. Alfie Mcnulty MONO # 0.9 103/ul Critically high 0.3-0.8 [facility] Comment on above: Performed By: #### C MP #### [facility] [address] [place] [address] Dr. Alfie Mcnulty Monocytes/100 WBC (Bld) 5.0 % Normal 1.7-12.0 [facility] Comment on above: Performed By: #### C MP #### [facility] [address] [place] [address] Dr. Alfie Mcnulty NEUT # 16.8 103/ul Critically high 1.4-6.5 [facility] Comment on above: Performed By: #### C MP #### [facility] [address] [address] [address] Alfie Mcnulty Neutrophils/100 WBC (Bld) 89.7 % Critically high 43.0-75.0 [facility] Comment on above: Performed By: #### C MP #### [facility] [id number] Alfie Mcnulty Platelet mean volume (Bld) [Entitic vol] 9.6 fL Normal 9.5-13.5 [facility] Comment on above: Performed By: #### C MP #### [facility] [id number] Alfie Mcnulty PLT 294 103/ul Normal 150-450 [facility] Comment on above: Performed By: #### C MP #### [facility] [address] [address] [address] Alfie Mcnulty RBC 5.41 106/ul Normal 4.70-6.10 [facility] Comment on above: Performed By: #### C MP #### [facility] [id number] Alfie Mcnulty WBC 18.7 103/ul Critically high 4.0-11.0 [facility] Comment on above: Performed By: #### C MP #### [facility] [address] [place] [address] ABD/PELVIS WO CONon 11-06 CT ABD/PELVIS WO CON EXAMINATION: CT ABD/PELVIS WO CON, 11/06/2022 4:08 PM EDT HISTORY: CALCULUS OF KIDNEY COMPARISON STUDY: CT of the chest 12/10/2021 TECHNIQUE: 3 mm sections were obtained from the lung bases through the pubic symphysis without the use of contrast. Coronal and sagittal reconstructed images were obtained. CT scan of the abdomen and pelvis was performed without IV contrast. CT dose reduction technique was used, including Automated Exposure Control. CT ABDOMEN: Heart size is normal. Lung bases are clear. Left hepatic lobe is similarly elongated tripping over the superior pole of the spleen. Liver, spleen, gallbladder, pancreas, and adrenals as well as right kidney appear unremarkable. There is mild perinephric stranding and small amount of fluid about the left kidney. A midpole intracortical cyst measures 2.2 cm. There is mild hydronephrosis and hydroureter. A calculus projects near the urinary bladder base toward the left measuring [address] PELVIS: Urinary bladder is partially distended. Prostate and seminal vesicles demonstrate no acute abnormality. Trace amount of free pelvic fluid is noted. Bowel pattern is nonobstructive. Negative for appendicitis or diverticulitis. Aorta demonstrates normal caliber. Multilevel lower thoracic and lumbar Schmorl's node formation is noted incidentally. Remote fracture deformities involving the right transverse process at the L3 level noted. No acute osseous abnormality. IMPRESSION: 1. There is a 4 mm calculus at the bladder base toward left near the intramural segment. Mild left-sided hydronephrosis and hydroureter noted. No additional renal calculi. 2. Midpole left renal cyst. Electronically authenticated by: VALENTINO RIBERAH Date: 2022-11-06 17:22 Normal [facility] URINE PROFILEon 3 Bilirubin Ql (U) Negative Normal NEGATIVE [facility] Comment on above: Performed By: #### Isi PALOMO UMICRO #### [facility] [address] [place] [address] Dr. Alfie Mcnulty Clarity (U) CLEAR Normal CLEAR [facility] Comment on above: Performed By: #### Isi PALOMO UMICRO #### [facility] [address] [address] [address] Alfie Mcnulty Color (U) DK. ORANGE Abnormal YELLOW [facility] Comment on above: Performed By: #### Isi PALOMO UMICRO #### [facility] [address] [address] [address] Alfie Mcnulty ERUAHD A micrscopic examina tion will be performed if indicated. Normal [facility] Comment on above: Performed By: #### Isi PALOMO UMICRO #### [facility] [address] [place] [address] Dr. Alfie Mcnulty Glucose Ql (U) Negative Normal NEGATIVE [facility] Comment on above: Performed By: #### LEE MARTINEZ #### [facility] [address] [place] [address] Dr. Alfie Mcnulty Hemoglobin Ql (U) LARGE Abnormal NEGATIVE [facility] Comment on above: Performed By: #### MARLIN MARTINEZRO #### [facility] [address] [place] [address] Dr. Alfie Mcnulty Ketones Ql (U) 15 mg/dl Abnormal NEGATIVE [facility] Comment on above: Performed By: #### MARLIN MARTINEZRO #### [facility] [address] [place] [address] Dr. Alfie Mcnulty LEUKOCYTES Negative Normal NEGATIVE [facility] Comment on above: Performed By: #### MARLIN MARTINEZRO #### [facility] [address] [place] [address] Dr. Alfie Mcnulty Nitrite Ql (U) Negative Normal NEGATIVE [facility] Comment on above: Performed By: #### MARLIN MARTINEZRO #### [facility] [address] [place] [address] Dr. Alfie Mcnulty pH (U) [pH] Abnormal 5-9 [facility] Comment on above: Performed By: #### LEE MARTINEZ #### [facility] [address] [place] [address] Dr. Alfie Mcnulty Protein (U) [Mass/Vol] 100 mg/dL Abnormal NEGAT GREGORIA/ TRACE [facility] Comment on above: Performed By: #### MARLIN MARTINEZRO #### [facility] [address] [place] [address] Dr. Alfie Mcnulty SPEC GRAVITY 1.015 Normal 1.005-<=1. 025 [facility] Comment on above: Performed By: #### MARLIN MARTINEZRO #### [facility] [address] [place] [address] Dr. Alfie Mcnulty UR MICRO IND INDICATED Normal [facility] Comment on above: Performed By: #### LEE MARTINEZ #### [facility] [address] [place] [address] Dr. Alfie Mcnulty Urobilinogen Qn (U) 1.0 {Srinivasa'U}/dL Normal 0.2 - 1. 0 [facility] Comment on above: Performed By: #### E LEE PALOMO #### [facility] [address] [place] [address] Dr. Alfie Mcnulty PROF 14(COMP METB)on 023 Albumin [Mass/Vol] 4.3 g/dL Normal 3.4-5.0 [facility] Comment on above: Performed By: #### C MP #### [facility] [address] [place] [address] Dr. Alfie Mcnulty Albumin/Globulin [Mass ratio] 1.3 {ratio} Normal [facility] Comment on above: Performed By: #### C MP #### [facility] [address] [place] [address] Dr. Alfie Mcnulty ALP [Catalytic activity/Vol] 102 U/L Normal 46-116 [facility] Comment on above: Performed By: #### C MP #### [facility] [address] [place] [address] Dr. Alfie Mcnulty ALT [Catalytic activity/Vol] 69 U/L Critically high 16-63 [facility] Comment on above: Performed By: #### C MP #### [facility] [address] [place] [address] Dr. Alfie Mcnulty Anion gap [Moles/Vol] 9.5 mmol/L Normal [facility] Comment on above: Performed By: #### C MP #### [facility] [address] [place] [address] Dr. Alfie Mcnulty AST [Catalytic activity/Vol] 29 U/L Normal 15-37 [facility] Comment on above: Performed By: #### C MP #### [facility] [address] [place] [address] Dr. Alfie Mcnulty Bilirubin [Mass/Vol] 0.7 mg/dL Normal 0.2-1.0 [facility] Comment on above: Performed By: #### C MP #### [facility] [address] [place] [address] Dr. Alfie Mcnulty Calcium [Mass/Vol] 9.0 mg/dL Normal 8.5-10.1 [facility] Comment on above: Performed By: #### C MP #### [facility] [address] [address] [address] Alfie Mcnulty Chloride [Moles/Vol] 103 mmol/L Normal 98-107 [facility] Comment on above: Performed By: #### C MP #### [facility] [address] [address] [address] Alfie Mcnulty CO2 [Moles/Vol] 29.2 mmol/L Normal 21.0-32.0 [facility] Comment on above: Performed By: #### C MP #### [facility] [address] [place] [address] Dr. Alfie Mcnulty Creatinine [Mass/Vol] 1.23 mg/dL Normal 0.70-1.30 [facility] Comment on above: Performed By: #### C MP #### [facility] [address] [place] [address] Dr. Alfie Mcnulty EGFR-AF MALIAN >60 Normal >=60 [facility] Comment on above: Performed By: #### C MP #### [facility] [address] [place] [address] Dr. Alfie Mcnulty EGFR-NON AF MALIAN >60 Normal >=60 [facility] Comment on above: Performed By: #### C MP #### [facility] [address] [place] [address] Dr. Alfie Mcnulty Globulin (S) [Mass/Vol] 3.3 g/dL Normal [facility] Comment on above: Performed By: #### C MP #### [facility] [address] [address] [address] Alfie Mcnulty Glucose [Mass/Vol] 150 mg/dL Critically high 74-106 [facility] Comment on above: Performed By: #### C MP #### [facility] [address] [place] [address] Dr. Alfie Mcnulty Potassium [Moles/Vol] 3.7 mmol/L Normal 3.5-5.1 [facility] Comment on above: Performed By: #### C MP #### [facility] [address] [address] [address] Alfie Mcnulty Protein [Mass/Vol] 7.6 g/dL Normal 6.4-8.2 [facility] Comment on above: Performed By: #### C MP #### [facility] [address] [address] [address] Alfie Mcnulty Sodium [Moles/Vol] 138 mmol/L Normal 136-145 [facility] Comment on above: Performed By: #### C MP #### [facility] [address] [address] [address] Alfie Mcnulty Urea nitrogen [Mass/Vol] 12.0 mg/dL Normal 7.0-18.0 [facility] Comment on above: Performed By: #### C MP #### [facility] [address] [place] [address] Dr. Alfie Mcnulty Urea nitrogen/Creatinine [Mass ratio] 9.8 mg/mg Normal [facility] Comment on above: Performed By: #### C MP #### [facility] [address] [address] [address] Alfie Mcnulty URINE MICROSCOPIC ONLYon BACTERIA TRACE Abnormal NONE SEEN [facility] Comment on above: Performed By: #### Isi PALOMO UMICRO #### [facility] [address] [place] [address] Dr. Alfie Mcnulty Bacteria identified Cx Nom (U) NOT INDICATED Normal [facility] Comment on above: Performed By: #### Isi PALOMO UMICRO #### [facility] [address] [place] [address] Dr. Alfie Mcnulty CAST SEEN Abnormal NONE SEEN [facility] Comment on above: Performed By: #### Isi PALOMO UMICRO #### [facility] [address] [place] [address] Dr. Alfie Mcnulty Crystals LM Nom (Urine sed) NONE SEEN Normal NONE SEEN [facility] Comment on above: Performed By: #### Isi PALOMO UMICRO #### [facility] [address] [place] [address] Dr. Alfie Mcnulty Epithelial cells LM Ql (Urine sed) RARE Normal NONE SEEN /RARE [facility] Comment on above: Performed By: #### E RUR, UMICRO #### [facility] [address] [place] [address] Dr. Alfie Mcnulty HYALINE CAST RARE Normal [facility] Comment on above: Performed By: #### E RUR, UMICRO #### [facility] [address] [place] [address] Dr. Alfie Mcnulty MUCOUS TRACE Abnormal NONE SEEN [facility] Comment on above: Performed By: #### E RUR, UMICRO #### [facility] [address] [place] [address] Dr. Alfie Mcnulty RBC 20-50 Abnormal 0-2 [facility] Comment on above: Performed By: #### E RUR, UMICRO #### [facility] [address] [place] [address] Dr. Alfie Mcnulty WBC 2-5 Abnormal NONE SEEN [facility] Comment on above: Performed By: #### E RUR, UMICRO #### [facility] [address] [place] [address] Dr. 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 Inmate/Patient is out of care home. Appointment will be broken and will not rescheduled at this time. Malika Shrestha I approve the above note. ----- Tuesday, October 11, 2022 at 10:42:03 AM ----- ----- Provider: Billy Humphrey DMD -- Clinic: [facility] ----- Normal [facility] [employer] DRUG SCREEN RAPID (URINE)on 09-29-2022 AMP Negative Normal NEGATIVE [facility] Comment on above: Performed By: #### C MP #### [facility] [address] [place] [address] Dr. Alfie Mcnulty BAR Negative Normal NEGATIVE [facility] Comment on above: Performed By: #### C MP #### [facility] [address] [place] [address] Dr. Alfie Mcnulty BUP Negative Normal NEGATIVE [facility] Comment on above: Performed By: #### C MP #### [facility] [address] [address] [address] Alfie Mcnulty BZO Negative Normal NEGATIVE [facility] Comment on above: Performed By: #### C MP #### [facility] [address] [place] [address] Dr. Alfie Mcnulty LALITO Negative Normal NEGATIVE [facility] Comment on above: Performed By: #### C MP #### [facility] [address] [place] [address] Dr. Alfie Mcnulty CUT-OFFS SEE BELOW Normal [facility] Comment on above: Result Comment: AMP (Amphetamine): 500ng/mL, BAR (Barbituates): 200 ng/mL, BZO (Benzodiazepines): 150 ng/mL, BUP (Buprenorphine): 10 ng/mL, LALITO (Cocaine): 150 ng/mL, mAMP (Methamphetamine): 500 ng/mL, MTD (Methadone): 200 ng/mL, OPI (Opiates): 100 ng/mL, OXY (Oxycodone): 100 ng/mL, PCP (Phencyclidine): 25 ng/mL, PPX (Propoxyphene): 300 ng/mL, THC (Cannabinoids): 50 ng/mL, TCA (Trycyclic Antidepressants): 300 ng/mL Performed By: #### C MP #### [facility] [address] [place] [address] Dr. Alfie Mcnulty DRUG CUT HEADER DRUG CLASS TEST SYST EM CUT-OFF CONCENTRATIONS ARE FOLLOWS: Normal [facility] Comment on above: Performed By: #### C MP #### [facility] [address] [place] [address] Dr. Alfie Mcnulty mAMP Negative Normal NEGATIVE [facility] Comment on above: Performed By: #### C MP #### [facility] [address] [address] [address] Alfie Mcnulty MTD Negative Normal NEGATIVE [facility] Comment on above: Performed By: #### C MP #### [facility] [address] [place] [address] Dr. Alfie Mcnulty OPI Negative Normal NEGATIVE [facility] Comment on above: Performed By: #### C MP #### [facility] [address] [address] [address] Alfie Mcnulty OXY Negative Normal NEGATIVE [facility] Comment on above: Performed By: #### C MP #### [facility] [address] [address] [address] Alfie Mcnulty PCP Negative Normal NEGATIVE [facility] Comment on above: Performed By: #### C MP #### [facility] [address] [place] [address] Dr. Alfie Mcnulty PPX Negative Normal NEGATIVE [facility] Comment on above: Performed By: #### C MP #### [facility] [address] [place] [address] Dr. Alfie Mcnulty TCA Negative Normal NEGATIVE [facility] Comment on above: Performed By: #### C MP #### [facility] [address] [place] [address] Dr. Alfie Mcnulty THC Negative Normal NEGATIVE [facility] Comment on above: Performed By: #### C MP #### [facility] [address] [place] [address] Dr. Alfie Mcnulty CHEMISTRYOrdered By: SYSTEM SYSTEM on 09-26-2022 Albumin [Mass/Vol] 4.8 g/dL Normal 3.3 - 5.0 gm/dL [facility] Albumin/Globulin [Mass ratio] 1.3 {ratio} Normal 1.1 - 2.2 [facility] ALP [Catalytic activity/Vol] 68 [iU]/d Normal 21 - 98 Int._Unit/ L [facility] ALT No additional P-5'-P [Catalytic activity/Vol] 120 [iU]/d High 6 - 46 Int._Unit/ L [facility] Anion gap [Moles/Vol] 13 mmol/L Normal 6 - 16 mEq/L [facility] AST [Catalytic activity/Vol] 51 [iU]/d High 5 - 43 Int._Unit/ L [facility] Bilirubin [Mass/Vol] 0.7 mg/dL Normal 0.0 - 1 .1 mg/dL [facility] Calcium [Mass/Vol] 9.3 mg/dL Normal 8.9 - 11. 1 mg/dL [facility] Chloride [Moles/Vol] 101 mmol/L Normal 101 - 1 11 mmol/L [facility] CO2 [Moles/Vol] 27 mmol/L Normal 21 - 31 mmol/L [facility] Creatinine [Mass/Vol] 1.0 mg/dL Normal 0.5 - 1.3 mg/dL [facility] GFR/1.73 sq M.predicted among blacks MDRD (S/P/Bld) [Vol rate/Area] mL/min/1.73 m2 Normal >=59mL/min /1.73 m2 [facility] S GFR/1.73 sq M.predicted among non-blacks MDRD (S/P/Bld) [Vol rate/Area] mL/min/1.73 m2 Normal >=59mL/min /1.73 m2 [facility] S Globulin (S) [Mass/Vol] 3.6 g/dL Normal 1.4 - 4.0 gm/dL [facility] Glucose [Mass/Vol] 89 mg/dL Normal 55 - 199 mg/dL [facility] Potassium [Moles/Vol] 3.6 mmol/L Normal 3.5 - 5.3 mmol/L [facility] Protein [Mass/Vol] 8.4 g/dL High 6.0 - 7.8 gm/dL [facility] Sodium [Moles/Vol] 137 mmol/L Normal 135 - 145 mmol/L [facility] Urea nitrogen [Mass/Vol] 15 mg/dL Normal 5 - 21 mg/dL [facility] Urea nitrogen/Creatinine [Mass ratio] 15 mg/mg Normal 10 - 20 [facility] CHEMISTRYOrdered By: Monica Melchor on 09-26-2022 HbA1c (Bld) [Mass fraction] 5.0 % Normal <=5.9% [facility] ChemAutoSS HEMATOLOGYOrdered By: SYSTEM SYSTEM on 09-26-2022 Basophils/100 WBC (Bld) 0.9 % Normal 0.0 - 2.0 % [facility]eAutoSS Basophils/Leukocytes Auto (Bld) [Pure # fraction] 0.1 E9/L Normal 0.0 - 0.2 E9/L [facility]eAutoSS Eosinophils/100 WBC (Bld) 0.5 % Normal 0.0 - 8.0 % [facility]eAutoSS Eosinophils/Leukocytes Auto (Bld) [Pure # fraction] 0.0 E9/L Normal 0.0 - 0.5 E9/L [facility]eAutoSS Lymphocytes/100 WBC (Bld) 35.4 % Normal 14.0 - 50.0 % [facility]eAutoSS Lymphocytes/Leukocytes Auto (Bld) [Pure # fraction] 2.9 E9/L Normal 1.0 - 4.0 E9/L [facility]eAutoSS Monocytes/100 WBC (Bld) 7.0 % Normal 4.0 - 14.0 % [facility]eAutoSS Monocytes/Leukocytes Auto (Bld) [Pure # fraction] 0.6 E9/L Normal 0.2 - 1.0 E9/L [facility]eAutoSS Neutrophils/100 WBC (Bld) 56.2 % Normal 36.0 - 75.0 % [facility]eAutoSS Neutrophils/Leukocytes Auto (Bld) [Pure # fraction] 4.7 E9/L Normal 2.0 - 7.5 E9/L [facility] HemeAutoSS HEMATOLOGYOrdered By: Roopa Martinez on 09-26-2022 Erythrocyte distribution width (RBC) [Ratio] 12.6 % Normal 10.9 - 14.2 % [facility] HemeAutoSS Hematocrit (Bld) [Volume fraction] 44.4 % Normal 37.7 - 49.0 % [facility]eAutoSS Hemoglobin (Bld) [Mass/Vol] 15.7 g/dL Normal 13.5 - 17.5 gm/dL [facility]eAutoSS MCH (RBC) [Entitic mass] 30.2 pg Normal 27. 0 - 34.0 pg [facility]Auto[facility] MCHC (RBC) [Mass/Vol] 35.3 g/dL Normal 31.4 - 36.0 gm/dL [facility]eAuto[facility] MCV (RBC) [Entitic vol] 85.4 fL Normal 80.0 - 100.0 fL [facility]eAutoSS Platelet mean volume (Bld) [Entitic vol] 8.1 fL Normal 6.4 - 10.8 fL [facility]eAutoSS Platelets (Bld) [#/Vol] 263.0 E9/L Normal 150. 0 - 500.0 E9/L [facility]eAutoSS RBC (Bld) [#/Vol] 5.2 E12/L Normal 4.3 - 5.9 E12/L [facility]eAutoSS WBC corrected for nucl RBC Auto (Bld) [#/Vol] 8.3 E9/L Normal 4.0 - 11.0 E9/L [facility]eAutoSS Progress Noteson 07-29-2022 [employer] Authentication Interface Message Text Pt to med cart c/o headache. Requesting tylenol. Order pended to provider pool for review. Normal [facility] [employer] [facility] TB INTRADERMAL TESTOrdered B y: Kelsi Lopez on 07-28-2022 Interpretation and review of laboratory results Normal [facility] PPD reaction 0 mm [facility] Progress Noteson 07-26-2022 [employer] Authentication Interface Message Text Patient/Inmate Health Assessment Meeta Caraballo, 27 year old male, [place] [facility] This is the first admission within the last 12 months. Pt was living at [facility]. Patient/inmate is being seen today for 14 Day Health Assessment. Pt brought into [facility] at [facility] Patient PPD administered right forearm . Conception protocol education explained. Pt voices understanding. Pt medications reconciled and verified, meds pended to provider. Pt takes trazodone, not on formulary. Pt gets invega sustenna, got it two weeks ago, says provider is from [facility]. Consulted mental health- dx schizoeffective. Pt requests dental consult, has some teeth that are painful. Pt denies drug/alcohol use. Pt at this time calm and cooperative. Assessment otherwise unremarkable at this time. Pt denies suicidal thoughts or ideations. All receiving screen information reviewed including communicable diseases, chronic diseases and mental health evaluation. History There is no problem list on file for this patient. No past medical history on file. No past surgical history on file. Immunization History Administered Date(s) Administered TST-PPD, intradermal (PPD) (CVX=96) 07/26/2022 Health Maintenance Topic Date Due COVID-19 Vaccine (1) Never done Tdap Booster Never done Influenza Vaccine (1) 05/25/2022 Shingles (RZV) Vaccine (1 of 2) 2043 Hepatitis C Antibody Completed HIV Test Completed Pneumococcal Vaccine(s) Aged Out Physical findings BP 118/80 (BP Location: right arm, BP position: sitting, Cuff Size: adult) Pulse 62 Temp 98.6 ???F (37 ???C) (Temporal) Resp 18 Ht 5' 10 (1.778 m) Wt 166 lb 6.4 oz (75.5 kg) SpO2 98% BMI 23.88 kg/m??? Physical Exam No flowsheet data found. No results found for this or any previous visit (from the past 24149 hour(s)). Basic Metabolic Panel None No results found for: HBA1C No results found for: HIVLOAD ASSESSMENT/PLAN Inmate in correctional facility Last notes from admission, hospital or emergency department discharge summaries, or primary care visits were reviewed, if available at the time of the health assessment. CareEverywhere immunizations, allergies, problem list were reviewed and reconciled with internal records. Receiving screen was reviewed and any interim acute care provided during admission. Clinical concerns: Documentation of health assessment completed for licensed independent provider review Diagnostic and therapeutic orders pended for licensed independent provider review and completion Oral hygiene and preventative oral education provided Patient/inmate questions answered, callahan education provided: usman protocol Admission problem list updated to reflect review and clinical findings Ayan Beltran RN Normal [facility] [employer] [facility] Cholesterol [Mass/volume] in Serum or PlasmaOrdered By: Endy Chester on 05-23-2022 Cholesterol [Mass/Vol] 116 mg/dL 140-200 [facility] Comment on above: Chol less than 200 m g/dl low riskChol 201-239 mg/dl borderline riskChol 240 mg/dl and greater high risk Cholesterol in LDL Calc [Mas s/Vol]Ordered By: Endy Chester on 05-23-2022 Cholesterol in LDL [Mass/Vol] 62 mg/dL 0-100 [facility] Comment on above: LDL ATP III CLASSIFI CATIONLDL less than 100 mg/dL OptimalLDL 100-129 mg/dL Near or above optimalLDL 130-159 mg/dL Borderline highLDL 160-189 mg/dL HighLDL greater than 189 mg/dL Very high Cholesterol in VLDL Calc [Ma ss/Vol]Ordered By: Endy Chester on 05-23-2022 Cholesterol in VLDL [Mass/Vol] 20 mg/dL [facility] ETHANOL (BLD ALC)on 05-23-20 22 ALC NOTE NOTE: 80 mg/dl is th e legal limit for a blood alcohol level Normal [facility] Comment on above: Performed By: #### E TH #### [facility] [address] [address] [address] Alfie Mcnulty Ethanol [Mass/Vol] 85 mg/dL Normal [facility] Comment on above: Performed By: #### E TH #### [facility] [address] [address] [address] Alfie Mcnulty ALC NOTE NOTE: 80 mg/dl is th e legal limit for a blood alcohol level Normal [facility] Comment on above: Performed By: #### C MP #### [facility] [address] [address] [address] Alfie Mcnulty Ethanol [Mass/Vol] 171 mg/dL Normal [facility] Comment on above: Performed By: #### C MP #### [facility] [address] [address] [address] Alfie Mcnulty No Panel InformationOrdered By: Endy Chester on 05-23-2022 25-Hydroxy Vitamin D Total 46.5 ng/mL 30-100 [facility] Comment on above: VITAMIN D STATUS 25( OH)VITAMIN D RANGE (ng/mL) Deficient <20 Insufficient 20 to <30Sufficient 30 to 100Reference: Juaquin MF,Omero NC, Giovana GOLDSTEIN, et al. Evaluation,treatment, and prevention of vitamin D deficiency; an Endocrine Society clinical practice guideline. JCEM. 2010; 96(7):1911-30. POTASSIUMon 05-23-2022 Potassium [Moles/Vol] 3.0 mmol/L Critically low 3.5-5.1 [facility] Comment on above: Performed By: #### C MP #### [facility] [address] [address] [address] Alfie Mcnulty Serum or plasma high density lipoprotein (HDL) cholesterol measurementOrdered By: Endy Chester on 05-23-2022 Cholesterol in HDL [Mass/Vol] 34 mg/dL 29-71 [facility] Comment on above: HDL CHOL ATP-III CLA SSIFICATION Cardiovascular RiskHDL > or equal to 60 mg/dL LOWHDL < 40 mg/dL HIGH Serum or plasma total choles terol/high density lipoprotein (HDL) cholesterol mass ratOrdered By: Endy Chester on 05-23-2022 Cholesterol.total/Choles terol in HDL [Mass ratio] 3.4 {ratio} <5.0 [facility] TSH DL <= 0.005 mIU/L QnOrde red By: Endy Chester on 05-23-2022 TSH Qn 0.74 m[IU]/L 0.45-5.33 [facility] Triglyceride [Mass/volume] i n Serum or PlasmaOrdered By: Endy Chester on 05-23-2022 Triglyceride [Mass/Vol] 101 mg/dL 35-[address] [facility] Comment on above: TRIG ATP III CLASSIF ICATIONTRIG less than 150 mg/dL NormalTRIG 150-199 mg/dL Borderline highTRIG 200-500 mg/dL High TRIG greater than 500 mg/dL Very highStandard traceable to the Center for Disease Conrtrol and Prevention (CDC) test method. ACETAMINOPHENon 05-22-2022 Acetaminophen [Mass/Vol] ug/mL Normal 10.0-30.0 [facility] Comment on above: Performed By: #### C MP #### [facility] [address] [address] [address] Alfie Mcnulty CBC AUTO DIFFon 05-22-2022 BASO # 0.1 103/ul Normal 0.0-0.1 [facility] Comment on above: Performed By: #### C BC #### [facility] [address] [address] [address] Alfie Mcnulty Basophils/100 WBC (Bld) 0.7 % Normal 0.2-2.0 [facility] Comment on above: Performed By: #### C BC #### [facility] [address] [place] [address] Dr. Alfie Mcnulty EO # 0.0 103/ul Normal 0.0-0.7 [facility] Comment on above: Performed By: #### C BC #### [facility] [address] [place] [address] Dr. Alfie Mcnulty Eosinophils/100 WBC (Bld) 0.0 % Critically low 0.9-7.0 [facility] Comment on above: Performed By: #### C BC #### [facility] [address] [place] [address] Dr. Alfie Mcnulty Erythrocyte distribution width (RBC) [Ratio] 11.8 % Normal 11.0-15.0 [facility] Comment on above: Performed By: #### C BC #### [facility] [address] [place] [address] Dr. Alfie Mcnulty Hematocrit (Bld) [Volume fraction] 37.5 % Critically low 42.0-54.0 [facility] Comment on above: Performed By: #### C BC #### [facility] [address] [place] [address] Dr. Alfie Mcnulty Hemoglobin (Bld) [Mass/Vol] 13.2 g/dL Critically low 14.0-18.0 [facility] Comment on above: Performed By: #### C BC #### [facility] [address] [place] [address] Dr. Alfie Mcnulty IG # 0.03 10e3/ul Normal 0.00-0.03 [facility] Comment on above: Performed By: #### C BC #### [facility] [address] [place] [address] Dr. Alfie Mcnulty IG % 0.4 % Normal 0.0-0.5 [facility] Comment on above: Performed By: #### C BC #### [facility] [address] [place] [address] Dr. Alfie Mcnulty LYMPH # 2.4 103/ul Normal 1.2-3.8 [facility] Comment on above: Performed By: #### C BC #### [facility] [address] [place] [address] Dr. Alfie Mcnulty Lymphocytes/100 WBC (Bld) 31.5 % Normal 20.5-60.0 [facility] Comment on above: Performed By: #### C BC #### [facility] [address] [place] [address] Dr. Alfie Mcunlty MANUAL DIFF REQ NO Normal [facility] Comment on above: Performed By: #### C BC #### [facility] [address] [place] [address] Dr. Alfie Mcnulty MCH (RBC) [Entitic mass] 29.8 pg Normal 25.9-34.0 [facility] Comment on above: Performed By: #### C BC #### [facility] [address] [place] [address] Dr. Alfie Mcnulty MCHC (RBC) [Mass/Vol] 35.2 g/dL Normal 29.9-35.2 [facility] Comment on above: Performed By: #### C BC #### [facility] [address] [place] [address] Dr. Alfie Mcnulty MCV (RBC) [Entitic vol] 84.7 fL Normal 80.0-94.0 [facility] Comment on above: Performed By: #### C BC #### [facility] [address] [place] [address] Dr. Alfie Mcnulty MONO # 0.5 103/ul Normal 0.3-0.8 [facility] Comment on above: Performed By: #### C BC #### [facility] [address] [place] [address] Dr. Alfie Mcnulty Monocytes/100 WBC (Bld) 6.6 % Normal 1.7-12.0 [facility] Comment on above: Performed By: #### C BC #### [facility] [address] [place] [address] Dr. Alfie Mcnulty NEUT # 4.6 103/ul Normal 1.4-6.5 [facility] Comment on above: Performed By: #### C BC #### [facility] [address] [place] [address] Dr. Alfie Mcnulty Neutrophils/100 WBC (Bld) 60.8 % Normal 43.0-75.0 [facility] Comment on above: Performed By: #### C BC #### [facility] [address] [place] [address] Dr. Alfie Mcnulty Platelet mean volume (Bld) [Entitic vol] 10.0 fL Normal 9.5-13.5 [facility] Comment on above: Performed By: #### C BC #### [facility] [address] [place] [address] Dr. Alfie Mcnulty PLT 238 103/ul Normal 150-450 [facility] Comment on above: Performed By: #### C BC #### [facility] [address] [place] [address] Dr. Alfie Mcnulty RBC 4.43 106/ul Critically low 4.70-6.10 [facility] Comment on above: Performed By: #### C BC #### [facility] [address] [place] [address] Dr. Alfie Mcnulty WBC 7.6 103/ul Normal 4.0-11.0 [facility] Comment on above: Performed By: #### C BC #### [facility] [address] [place] [address] Dr. Alfie Mcnulty [facility]26 SARS-CoV-2 (COVID-19) RNA MORIAH+probe Ql (Unsp spec) Not detected Normal NOT DETECTED [facility] Comment on above: Result Comment: When diagnostic testing is negative, the possibility of a false negative should be considered in the context of a patient's recent exposures and the presence of clinical signs and symptoms consistent with SARS-CoV-2. This test is not yet approved or cleared by the [place] FDA. When there are no FDA-approved or cleared tests available, and other criteria are met, FDA can make tests available under an emergency access mechanism called an Emergency Use Authorization (EUA). The EUA for this test is supported by the Online Project Manager of Health and Human Service's declaration that circumstances exist to justify the emergency use of in vitro diagnostics for the detection and/or diagnosis of the virus that causes COVID-19. This EUA will remain in effect for the duration of the COVID-19 declaration justifying emergency of IVDs, unless it is terminated or revoked by the FDA (after which the test may no longer be used). Performed By: #### C MP #### [facility] [address] [place] [address] Dr. Alfie Mcnulty DRUG SCREEN RAPID (URINE)on 05-22-2022 AMP Negative Normal NEGATIVE [facility] Comment on above: Performed By: #### C MP #### [facility] [address] [place] [address] Dr. Alfie Mcnulty BAR Negative Normal NEGATIVE [facility] Comment on above: Performed By: #### C MP #### [facility] [address] [place] [address] Dr. Alfie Mcnulty BUP Negative Normal NEGATIVE [facility] Comment on above: Performed By: #### C MP #### [facility] [address] [place] [address] Dr. Alfie Mcnluty BZO Negative Normal NEGATIVE [facility] Comment on above: Performed By: #### C MP #### [facility] [address] [place] [address] Dr. Alfie Mcnulty LALITO Negative Normal NEGATIVE [facility] Comment on above: Performed By: #### C MP #### [facility] [address] [place] [address] Dr. Alfie Mcnulty CUT-OFFS SEE BELOW Normal [facility] Comment on above: Result Comment: AMP (Amphetamine): 500ng/mL, BAR (Barbituates): 200 ng/mL, BZO (Benzodiazepines): 150 ng/mL, BUP (Buprenorphine): 10 ng/mL, LALITO (Cocaine): 150 ng/mL, mAMP (Methamphetamine): 500 ng/mL, MTD (Methadone): 200 ng/mL, OPI (Opiates): 100 ng/mL, OXY (Oxycodone): 100 ng/mL, PCP (Phencyclidine): 25 ng/mL, PPX (Propoxyphene): 300 ng/mL, THC (Cannabinoids): 50 ng/mL, TCA (Trycyclic Antidepressants): 300 ng/mL Performed By: #### C MP #### [facility] [address] [place] [address] Dr. Alfie Mcnulty DRUG CUT HEADER DRUG CLASS TEST SYST EM CUT-OFF CONCENTRATIONS ARE FOLLOWS: Normal [facility] Comment on above: Performed By: #### C MP #### [facility] [address] [place] [address] Dr. Alfie Mcnulty mAMP Negative Normal NEGATIVE [facility] Comment on above: Performed By: #### C MP #### [facility] [address] [place] [address] Dr. Alfie Mcnulty MTD Negative Normal NEGATIVE [facility] Comment on above: Performed By: #### C MP #### [facility] [address] [place] [address] Dr. Alfie Mcnulty OPI Negative Normal NEGATIVE [facility] Comment on above: Performed By: #### C MP #### [facility] [address] [place] [address] Dr. Alfie Mcnulty OXY Negative Normal NEGATIVE [facility] Comment on above: Performed By: #### C MP #### [facility] [address] [place] [address] Dr. Alfie Mcnulty PCP Negative Normal NEGATIVE [facility] Comment on above: Performed By: #### C MP #### [facility] [address] [place] [address] Dr. Alfie cMnulty PPX Negative Normal NEGATIVE [facility] Comment on above: Performed By: #### C MP #### [facility] [address] [place] [address] Dr. Alfie Mcnulty TCA Negative Normal NEGATIVE [facility] Comment on above: Performed By: #### C MP #### [facility] [address] [place] [address] Dr. Alfie Mcnulty THC Negative Normal NEGATIVE [facility] Comment on above: Performed By: #### C MP #### [facility] [address] [place] [address] Dr. Alfie Mcnulty ER URINE PROFILEon 2 Bilirubin Ql (U) Negative Normal NEGATIVE [facility] Comment on above: Performed By: #### E RUR #### [facility] [address] [place] [address] Dr. Alfie Mcnulty Clarity (U) CLEAR Normal CLEAR [facility] Comment on above: Performed By: #### E RUR #### [facility] [address] [place] [address] Dr. Alfie Mcnulty Color (U) LT. YELLOW Normal YELLOW [facility] Comment on above: Performed By: #### E RUR #### [facility] [address] [place] [address] Dr. Alfie ROD A micrscopic examina tion will be performed if indicated. Normal [facility] Comment on above: Performed By: #### E RUR #### [facility] [address] [place] [address] Dr. Alfie Mcnulty Glucose Ql (U) Negative Normal NEGATIVE [facility] Comment on above: Performed By: #### E RUR #### [facility] [address] [place] [address] Dr. Alfie Mcnulty Hemoglobin Ql (U) Negative Normal NEGATIVE [facility] Comment on above: Performed By: #### E RUR #### [facility] [address] [place] [address] Dr. Alfie Mcnulty Ketones Ql (U) Negative Normal NEGATIVE [facility] Comment on above: Performed By: #### E RUR #### [facility] [address] [place] [address] Dr. Alfie Mcnulty LEUKOCYTES Negative Normal NEGATIVE [facility] Comment on above: Performed By: #### E RUR #### [facility] [address] [place] [address] Dr. Alfie Mcnulty Nitrite Ql (U) Negative Normal NEGATIVE [facility] Comment on above: Performed By: #### E RUR #### [facility] [address] [place] [address] Dr. Alfie Mcnulty pH (U) 6.0 [pH] Normal 5-9 [facility] Comment on above: Performed By: #### E RUR #### [facility] [address] [address] [address] Alfie Mcnulty SPEC GRAVITY <=1.005 Abnormal 1.005-<=1. 025 [facility] Comment on above: Performed By: #### E RUR #### [facility] [address] [address] [address] Alfie Mcnulty UA PROTEIN Negative Normal NEGATIVE/ TRACE [facility] Comment on above: Performed By: #### E RUR #### [facility] [address] [address] [address] Alfie Mcnulyt UR MICRO IND NOT INDICATED Normal [facility] Comment on above: Performed By: #### E RUR #### [facility] [address] [place] [address] Dr. Alfie Mcnulty Urobilinogen Qn (U) 0.2 {Srinivasa'U}/dL Normal 0.2 - 1. 0 [facility] Comment on above: Performed By: #### E RUR #### [facility] [address] [place] [address] Dr. Alfie Mcnulty ETHANOL (BLD ALC)on 05-22-20 22 ALC NOTE NOTE: 80 mg/dl is th e legal limit for a blood alcohol level Normal [facility] Comment on above: Performed By: #### E TH #### [facility] [address] [place] [address] Dr. Alfie Mcnulty Ethanol [Mass/Vol] 250 mg/dL Normal [facility] Comment on above: Performed By: #### E TH #### [facility] [address] [place] [address] Dr. Alfie Mcnulty PROF 14(COMP METB)on 022 Albumin [Mass/Vol] 3.4 g/dL Normal 3.4-5.0 [facility] Comment on above: Performed By: #### C MP #### [facility] [address] [place] [address] Dr. Alfie Mcnulty Albumin/Globulin [Mass ratio] 0.9 {ratio} Normal [facility] Comment on above: Performed By: #### C MP #### [facility] [address] [address] [address] Alfie Mcnulty ALP [Catalytic activity/Vol] 82 U/L Normal 46-116 [facility] Comment on above: Performed By: #### C MP #### [facility] [address] [address] [address] Alfie Mcnulty ALT [Catalytic activity/Vol] 35 U/L Normal 16-63 [facility] Comment on above: Performed By: #### C MP #### [facility] [address] [address] [address] Alfie Mcnulty Anion gap [Moles/Vol] 15.2 mmol/L Normal [facility] Comment on above: Performed By: #### C MP #### [facility] [address] [place] [address] Dr. Alfie Mcnulty AST [Catalytic activity/Vol] 22 U/L Normal 15-37 [facility] Comment on above: Performed By: #### C MP #### [facility] [address] [place] [address] Dr. Alfie Mcnulty Bilirubin [Mass/Vol] 0.2 mg/dL Normal 0.2-1.0 [facility] Comment on above: Performed By: #### C MP #### [facility] [address] [place] [address] Dr. Alfie Mcnulty Calcium [Mass/Vol] 8.2 mg/dL Critically low 8.5-10.1 [facility] Comment on above: Performed By: #### C MP #### [facility] [address] [place] [address] Dr. Alfie Mcnulty Chloride [Moles/Vol] 107 mmol/L Normal 98-107 [facility] Comment on above: Performed By: #### C MP #### [facility] [address] [place] [address] Dr. Alfie Mcnulty CO2 [Moles/Vol] 24.7 mmol/L Normal 21.0-32.0 [facility] Comment on above: Performed By: #### C MP #### [facility] [address] [address] [address] Alfie Mcnulty Creatinine [Mass/Vol] 0.76 mg/dL Normal 0.70-1.30 [facility] Comment on above: Performed By: #### C MP #### [facility] [address] [address] [address] Alfie Mcnulty EGFR-AF MALIAN >60 Normal >=60 [facility] Comment on above: Performed By: #### C MP #### [facility] [address] [address] [address] Alfie Mcnulty EGFR-NON AF MALIAN >60 Normal >=60 [facility] Comment on above: Performed By: #### C MP #### [facility] [address] [place] [address] Dr. Alfie Mcnulty Globulin (S) [Mass/Vol] 3.9 g/dL Normal [facility] Comment on above: Performed By: #### C MP #### [facility] [address] [place] [address] Dr. Alfie Mcnulty Glucose [Mass/Vol] 101 mg/dL Normal 74-106 [facility] Comment on above: Performed By: #### C MP #### [facility] [address] [address] [address] Alfie Mcnulty Potassium [Moles/Vol] 2.8 mmol/L Critically low 3.5-5.1 [facility] Comment on above: Performed By: #### C MP #### [facility] [address] [address] [address] Alfie Mcnulty Protein [Mass/Vol] 7.3 g/dL Normal 6.4-8.2 [facility] Comment on above: Performed By: #### C MP #### [facility] [address] [place] [address] Dr. Alfie Mcnulty Sodium [Moles/Vol] 141 mmol/L Normal 136-145 [facility] Comment on above: Performed By: #### C MP #### [facility] [address] [place] [address] Dr. Alfie Mcnulty Urea nitrogen [Mass/Vol] 10.0 mg/dL Normal 7.0-18.0 [facility] Comment on above: Performed By: #### C MP #### [facility] [address] [place] [address] Dr. Alfie Mcnulty Urea nitrogen/Creatinine [Mass ratio] 13.2 mg/mg Normal [facility] Comment on above: Performed By: #### C MP #### [facility] [address] [place] [address] Dr. Alfie Mcnulty SALICYLATEon 05-22-2022 SALICYLATE <2.8 Normal <=19.9 [facility] Comment on above: Performed By: #### C MP #### [facility] [address] [place] [address] Dr. Alfie Mcnulty Covid-19 PCR ([facility])on 04-26 SARS-CoV-2 (COVID-19) RNA MORIAH+probe Ql (Unsp spec) Not detected Normal NOT DETECTED [facility] Comment on above: Result Comment: This test is not yet approved or cleared by the [place] FDA. When there are no FDA-approved or cleared tests available, and other criteria are met, FDA can make tests available under an emergency access mechanism called an Emergency Use Authorization (EUA). The EUA for this test is supported by the [place] of Health and Human Service's (HHS's) declaration that circumstances exist to justify the emergency use of in vitro diagnostics for the detection and/or diagnosis of the virus that causes COVID-19. This EUA will remain in effect (meaning this test can be used) for the duration of the COVID-19 declaration justifying emergency of IVDs, unless it is terminated or revoked by FDA (after which the test may no longer be used). When diagnostic testing is negative, the possibility of a false negative should be considered in the context of a patient's recent exposures and the presence of clinical signs and symptoms consistent with SARS-CoV-2. Performed By: #### C MP #### [facility] [address] [place] [address] Dr. Alfie Mcnulty GROUP A STREP CULTUREon 04-26 S. pyogenes Ag Ql (Unsp spec) Culture Observations: NEGATIVE FOR GROUP A STREPTOCOCCUS. Normal [facility] Comment on above: Performed By: #### C MP #### [facility] [address] [place] [address] Dr. Alfie Mcnulty STREPT SCREENon 05-20-2022 STREP SCREEN A Negative Normal NEGATIVE [facility] Comment on above: Performed By: #### C MP #### [facility] [address] [place] [address] Dr. Alfie Mcnulty ER URINE PROFILEon Bilirubin Ql (U) Negative Normal NEGATIVE [facility] Comment on above: Performed By: #### C MP #### [facility] [address] [place] [address] Dr. Alfie Mcnulty Clarity (U) CLEAR Normal CLEAR [facility] Comment on above: Performed By: #### C MP #### [facility] [address] [place] [address] Dr. Alfie Mcnulty Color (U) LT. YELLOW Normal YELLOW [facility] Comment on above: Performed By: #### C MP #### [facility] [address] [place] [address] Dr. Alfie Mcnulty ERUAHD A micrscopic examina tion will be performed if indicated. Normal [facility] Comment on above: Performed By: #### C MP #### [facility] [address] [place] [address] Dr. Alfie Mcnulty Glucose Ql (U) Negative Normal NEGATIVE [facility] Comment on above: Performed By: #### C MP #### [facility] [address] [place] [address] Dr. Alfie Mcnulty Hemoglobin Ql (U) Negative Normal NEGATIVE [facility] Comment on above: Performed By: #### C MP #### [facility] [address] [place] [address] Dr. Alfie Mcnulty Ketones Ql (U) Negative Normal NEGATIVE [facility] Comment on above: Performed By: #### C MP #### [facility] [address] [place] [address] Dr. Alfie Mcnulty LEUKOCYTES Negative Normal NEGATIVE [facility] Comment on above: Performed By: #### C MP #### [facility] [address] [address] [address] Alfie Mcnulty Nitrite Ql (U) Negative Normal NEGATIVE [facility] Comment on above: Performed By: #### C MP #### [facility] [address] [address] [address] Alfie Mcnulty pH (U) 7.0 [pH] Normal 5-9 [facility] Comment on above: Performed By: #### C MP #### [facility] [address] [address] [address] Alfie Mcnulty SPEC GRAVITY 1.020 Normal 1.005-<=1. 025 [facility] Comment on above: Performed By: #### C MP #### [facility] [address] [address] [address] Alfie Mcnulty UA PROTEIN Negative Normal NEGATIVE/ TRACE [facility] Comment on above: Performed By: #### C MP #### [facility] [address] [place] [address] Dr. Alfie Mcnulty UR MICRO IND NOT INDICATED Normal [facility] Comment on above: Performed By: #### C MP #### [facility] [address] [address] [address] Alfie Mcnulty Urobilinogen Qn (U) 1.0 {Srinivasa'U}/dL Normal 0.2 - 1. 0 [facility] Comment on above: Performed By: #### C MP #### [facility] [address] [place] [address] Dr. Alfie Mcnulty CHEMISTRYOrdered By: SYSTEM SYSTEM on 02-10-2022 Ethanol [Mass/Vol] 123 mg/dL Invalid Interpretation Code <=7mg/dL [facility] Comment on above: Result Comment: Crit ical Result verified by repeat analysis\Critical Result S_ETOH:123.0 Called to SANJIV NASCIMENTO AT ED by KHANH PERRY And Read Back For Confirmation at: 02/10/2022 11:54:12 Amphetamines Screen method >1000 ng/mL Ql (U) Negative (02/10/22 1:05 AM) Normal Negative [facility] Barbiturates Screen Ql (U) Negative (02/10/22 1:05 AM) Normal Negative [facility] Benzodiazepines Ql (U) Negative (02/10/22 1:05 AM) Normal Negative [facility] Cocaine Ql (U) Negative (02/10/22 1:05 AM) Normal Negative [facility] Opiates Screen Ql (U) Negative (02/10/22 1:05 AM) Normal Negative [facility] Phencyclidine Screen method >25 ng/mL Ql (U) Negative (02/10/22 1:05 AM) Normal Negative [facility] Tetrahydrocannabinol Screen method >50 ng/mL Ql (U) Negative (02/10/22 1:05 AM) Normal Negative [facility] Albumin [Mass/Vol] 4.3 g/dL Normal 3.3 - 5.0 gm/dL [facility] Albumin/Globulin [Mass ratio] 1.3 {ratio} Normal 1.1 - 2.2 [facility] ALP [Catalytic activity/Vol] 60 [iU]/d Normal 21 - 98 Int._Unit/ L [facility] ALT No additional P-5'-P [Catalytic activity/Vol] 81 [iU]/d High 6 - 46 Int._Unit/ L [facility] Anion gap [Moles/Vol] 16 mmol/L Normal 6 - 16 mEq/L [facility] AST [Catalytic activity/Vol] 48 [iU]/d High 5 - 43 Int._Unit/ L [facility] Bilirubin [Mass/Vol] 0.7 mg/dL Normal 0.0 - 1 .1 mg/dL [facility] Calcium [Mass/Vol] 8.6 mg/dL Low 8.9 - 11. 1 mg/dL [facility] Chloride [Moles/Vol] 105 mmol/L Normal 101 - 1 11 mmol/L [facility] CO2 [Moles/Vol] 23 mmol/L Normal 21 - 31 mmol/L [facility] Creatinine [Mass/Vol] 0.7 mg/dL Normal 0.5 - 1.3 mg/dL [facility] Ethanol [Mass/Vol] 340 mg/dL Invalid Interpretation Code <=7mg/dL [facility] Comment on above: Result Comment: Crit ical Result verified by repeat analysis\Critical Result S_ETOH:340.0 Called to JB AT by LAWRENCE Quiroz And Read Back For Confirmation at: 02/10/2022 01:11:25 GFR/1.73 sq M.predicted among blacks MDRD (S/P/Bld) [Vol rate/Area] mL/min/1.73 m2 Normal >=59mL/min /1.73 m2 [facility] S GFR/1.73 sq M.predicted among non-blacks MDRD (S/P/Bld) [Vol rate/Area] mL/min/1.73 m2 Normal >=59mL/min /1.73 m2 [facility] Globulin (S) [Mass/Vol] 3.2 g/dL Normal 1.4 - 4.0 gm/dL [facility] Glucose [Mass/Vol] 102 mg/dL Normal 55 - 199 mg/dL [facility] Potassium [Moles/Vol] 3.6 mmol/L Normal 3.5 - 5.3 mmol/L [facility] Protein [Mass/Vol] 7.5 g/dL Normal 6.0 - 7.8 gm/dL [facility] Sodium [Moles/Vol] 140 mmol/L Normal 135 - 145 mmol/L [facility] Urea nitrogen [Mass/Vol] 10 mg/dL Normal 5 - 21 mg/dL [facility] Urea nitrogen/Creatinine [Mass ratio] 14 mg/mg Normal 10 - 20 [facility] HEMATOLOGYOrdered By: SYSTEM SYSTEM on 02-10-2022 Basophils/100 WBC (Bld) 0.9 % Normal 0.0 - 2.0 % [facility] Basophils/Leukocytes Auto (Bld) [Pure # fraction] 0.1 E9/L Normal 0.0 - 0.2 E9/L [facility] Eosinophils/100 WBC (Bld) 0.4 % Normal 0.0 - 8.0 % [facility] Eosinophils/Leukocytes Auto (Bld) [Pure # fraction] 0.0 E9/L Normal 0.0 - 0.5 E9/L [facility] Lymphocytes/100 WBC (Bld) 32.3 % Normal 14.0 - 50.0 % [facility] Lymphocytes/Leukocytes Auto (Bld) [Pure # fraction] 3.5 E9/L Normal 1.0 - 4.0 E9/L [facility] Monocytes/100 WBC (Bld) 4.9 % Normal 4.0 - 14.0 % [facility] Monocytes/Leukocytes Auto (Bld) [Pure # fraction] 0.5 E9/L Normal 0.2 - 1.0 E9/L [facility] Neutrophils/100 WBC (Bld) 61.5 % Normal 36.0 - 75.0 % [facility] Neutrophils/Leukocytes Auto (Bld) [Pure # fraction] 6.6 E9/L Normal 2.0 - 7.5 E9/L [facility] HEMATOLOGYOrdered By: Lawrence Cerda on 02-10-2022 Erythrocyte distribution width (RBC) [Ratio] 13.5 % Normal 10.9 - 14.2 % [facility] Hematocrit (Bld) [Volume fraction] 43.4 % Normal 37.7 - 49.0 % [facility] Hemoglobin (Bld) [Mass/Vol] 15.3 g/dL Normal 13.5 - 17.5 gm/dL [facility] MCH (RBC) [Entitic mass] 30.3 pg Normal 27. 0 - 34.0 pg [facility] MCHC (RBC) [Mass/Vol] 35.2 g/dL Normal 31.4 - 36.0 gm/dL [facility] MCV (RBC) [Entitic vol] 86.0 fL Normal 80.0 - 100.0 fL [facility] Platelet mean volume (Bld) [Entitic vol] 7.9 fL Normal 6.4 - 10.8 fL [facility] Platelets (Bld) [#/Vol] 256.0 E9/L Normal 150. 0 - 500.0 E9/L [facility] RBC (Bld) [#/Vol] 5.0 E12/L Normal 4.3 - 5.9 E12/L [facility] WBC corrected for nucl RBC Auto (Bld) [#/Vol] 10.7 E9/L Normal 4.0 - 11.0 E9/L [facility] MICRO OTHER TESTSOrdered By: Lawrence Cerda on 02-10-2022 Rapid COV Int NEG Ctl Pass (02/10/22 1:00 AM) Normal [facility] Rapid COV Int POS Ctl Pass (02/10/22 1:00 AM) Normal [facility] SARS-CoV+SARS-CoV-2 (COVID-19) Ag IA.rapid Ql (Resp) Not Detected (02/10/22 1:00 AM) Normal Not Detected [facility] Bilirubin Test strip Ql (U)O rdered By: Endy Chester on 02-02-2022 Bilirubin Ql (U) Negative Negative [facility] Color Auto (U)Ordered By: Ab reggie Chester on 02-02-2022 Color (U) Yellow Yellow [facility] Ketones Auto test strip (U) [Mass/Vol]Ordered By: Endy Chester on 02-02-2022 Ketones (U) [Mass/Vol] Negative Negative [facility] Nitrite Test strip Ql (U)Ord ered By: Endy Chester on 02-02-2022 Nitrite Ql (U) Negative Negative [facility] Protein Auto test strip (U) [Mass/Vol]Ordered By: Endy Chester on 02-02-2022 Protein (U) [Mass/Vol] Negative Negative [facility] Specific gravity Auto test s trip (U) [Rel density]Ordered By: Endy Chester on 02-02-2022 Specific gravity (U) [Rel density] 1.016 1.001-1.03 0 [facility] Urine clarity by refractomet ry automatedOrdered By: Endy Chester on 02-02-2022 Clarity Refractometry automated (U) Clear Clear [facility] Urine glucose measurement by automated test strip (mass/volume)Ordered By: Endy Chester on 02-02-2022 Glucose Auto test strip (U) [Mass/Vol] Normal mg/dL Normal [facility] Urine hemoglobin detection b y automated test stripOrdered By: Endy Chester on 02-02-2022 Hemoglobin Auto test strip Ql (U) Negative Negative [facility] Urine leukocyte esterase det ection by automated test stripOrdered By: Endy Chester on 02-02-2022 Leukocyte esterase Auto test strip Ql (U) Negative Negative [facility] Urobilinogen Auto test strip (U) [Mass/Vol]Ordered By: Endy Chester on 02-02-2022 Urobilinogen (U) [Mass/Vol] Normal mg/dL Normal [facility] pH Auto test strip (U)Ordere d By: Endy Chester on 02-02-2022 pH (U) 6.5 [pH] 5.0-9.0 [facility] Cholesterol [Mass/volume] in Serum or PlasmaOrdered By: Endy Chester on 01-30-2022 Cholesterol [Mass/Vol] 155 mg/dL 140-200 [facility] Comment on above: Chol less than 200 m g/dl low risk Chol 201-239 mg/dl borderline risk Chol 240 mg/dl and greater high risk Cholesterol in LDL Calc [Mas s/Vol]Ordered By: Endy Chester on 01-30-2022 Cholesterol in LDL [Mass/Vol] 86 mg/dL 0-100 [facility] Comment on above: LDL ATP III CLASSIFI CATION LDL less than 100 mg/dL Optimal LDL 100-129 mg/dL Near or above optimal LDL 130-159 mg/dL Borderline high LDL 160-189 mg/dL High LDL greater than 189 mg/dL Very high Cholesterol in VLDL Calc [Ma ss/Vol]Ordered By: Endy Chester on 01-30-2022 Cholesterol in VLDL [Mass/Vol] 23 mg/dL [facility] No Panel InformationOrdered By: Endy Chester on 01-30-2022 25-Hydroxy Vitamin D Total 35.5 ng/mL 30-100 [facility] Comment on above: VITAMIN D STATUS 25( OH)VITAMIN D RANGE (ng/mL) Deficient <20 Insufficient 20 to <30 Sufficient 30 to 100 Reference: Juaquin MF,Omero NC, Giovana GOLDSTEIN, et al. Evaluation,treatment, and prevention of vitamin D deficiency; an Endocrine Society clinical practice guideline. JCEM. 2010; 96(7):1911-30. Serum or plasma high density lipoprotein (HDL) cholesterol measurementOrdered By: Endy Chester on 01-30-2022 Cholesterol in HDL [Mass/Vol] 45 mg/dL 29-71 [facility] Comment on above: HDL CHOL ATP-III CLA SSIFICATION Cardiovascular Risk HDL > or equal to 60 mg/dL LOW HDL < 40 mg/dL HIGH Serum or plasma total choles terol/high density lipoprotein (HDL) cholesterol mass ratOrdered By: Endy Chester on 01-30-2022 Cholesterol.total/Choles terol in HDL [Mass ratio] 3.4 {ratio} [facility] TSH DL <= 0.005 mIU/L QnOrde red By: Endy Chester on 01-30-2022 TSH Qn 0.49 m[IU]/L 0.45-5.33 [facility] Triglyceride [Mass/volume] i n Serum or PlasmaOrdered By: Endy Chester on 01-30-2022 Triglyceride [Mass/Vol] 119 mg/dL 35-[address] [facility] Comment on above: TRIG ATP III CLASSIF ICATION TRIG less than 150 mg/dL Normal TRIG 150-199 mg/dL Borderline high TRIG 200-500 mg/dL High TRIG greater than 500 mg/dL Very high Standard traceable to the Center for Disease Conrtrol and Prevention (CDC) test method. Covid-19 PCR ([facility])on SARS-CoV-2 (COVID-19) RNA MORIAH+probe Ql (Unsp spec) Not detected Normal NOT DETECTED [facility] Comment on above: Result Comment: When diagnostic testing is negative, the possibility of a false negative should be considered in the context of a patient's recent exposures and the presence of clinical signs and symptoms consistent with SARS-CoV-2. This test is not yet approved or cleared by the [place] FDA. When there are no FDA-approved or cleared tests available, and other criteria are met, FDA can make tests available under an emergency access mechanism called an Emergency Use Authorization (EUA). The EUA for this test is supported by the [place] of Health and Human Service's declaration that circumstances exist to justify the emergency use of in vitro diagnostics for the detection and/or diagnosis of the virus that causes COVID-19. This EUA will remain in effect for the duration of the COVID-19 declaration justifying emergency of IVDs, unless it is terminated or revoked by the FDA (after which the test may no longer be used). Performed By: #### C MP #### [facility] [address] [place] [address] Dr. Alfie Mcnulty ETHANOL (BLD ALC)on 01-30-20 22 ALC NOTE NOTE: 80 mg/dl is th e legal limit for a blood alcohol level Normal [facility] Comment on above: Performed By: #### C MP #### [facility] [address] [place] [address] Dr. Alfie Mcnulty Ethanol [Mass/Vol] 8 mg/dL Normal [facility] Comment on above: Performed By: #### C MP #### [facility] [address] [place] [address] Dr. Alfie Mcnulty ALC NOTE NOTE: 80 mg/dl is th e legal limit for a blood alcohol level Normal [facility] Comment on above: Performed By: #### C MP #### [facility] [address] [place] [address] Dr. Alfie Mcnulty Ethanol [Mass/Vol] 131 mg/dL Normal [facility] Comment on above: Performed By: #### C MP #### [facility] [address] [place] [address] Dr. Alfie Mcnulty ACETAMINOPHENon 01-28-2022 Acetaminophen [Mass/Vol] ug/mL Normal 10.0-30.0 [facility] Comment on above: Performed By: #### A CET #### [facility] [address] [place] [address] Dr. Alfie Mcnulty CBC AUTO DIFFon 01-28-2022 BASO # 0.0 103/ul Normal 0.0-0.1 [facility] Comment on above: Performed By: #### C MP #### [facility] [address] [place] [address] Dr. Alfie Mcnulty Basophils/100 WBC (Bld) 0.3 % Normal 0.2-2.0 [facility] Comment on above: Performed By: #### C MP #### [facility] [facility] [address] [place] [address] Dr. Alfie Mcnulty EO # 0.0 103/ul Normal 0.0-0.7 [facility] Comment on above: Performed By: #### C MP #### [facility] [address] [place] [address] Dr. Alfie Mcnulty Eosinophils/100 WBC (Bld) 0.0 % Critically low 0.9-7.0 [facility] Comment on above: Performed By: #### C MP #### [facility] [address] [place] [address] Dr. Alfie Mcnulty Erythrocyte distribution width (RBC) [Ratio] 12.7 % Normal 11.0-15.0 [facility] Comment on above: Performed By: #### C MP #### [facility] [address] [place] [address] Dr. Alfie Mcnulty Hematocrit (Bld) [Volume fraction] 47.5 % Normal 42.0-54.0 [facility] Comment on above: Performed By: #### C MP #### [facility] [address] [place] [address] Dr. Alfie Mcnulty Hemoglobin (Bld) [Mass/Vol] 16.2 g/dL Normal 14.0-18.0 [facility] Comment on above: Performed By: #### C MP #### [facility] [address] [place] [address] Dr. Alfie Mcnulty IG # 0.03 10e3/ul Normal 0.00-0.03 [facility] Comment on above: Performed By: #### C MP #### [facility] [address] [place] [address] Dr. Alfie Mcnulty IG % 0.3 % Normal 0.0-0.5 [facility] Comment on above: Performed By: #### C MP #### [facility] [address] [place] [address] Dr. Alfie Mcnulty LYMPH # 3.5 103/ul Normal 1.2-3.8 [facility] Comment on above: Performed By: #### C MP #### [facility] [address] [place] [address] Dr. Alfie Mcnulty Lymphocytes/100 WBC (Bld) 34.7 % Normal 20.5-60.0 [facility] Comment on above: Performed By: #### C MP #### [facility] [address] [place] [address] Dr. Alfie Mcnulty MANUAL DIFF REQ NO Normal [facility] Comment on above: Performed By: #### C MP #### [facility] [address] [place] [address] Dr. Alfie Mcnulty MCH (RBC) [Entitic mass] 29.6 pg Normal 25.9-34.0 [facility] Comment on above: Performed By: #### C MP #### [facility] [address] [place] [address] Dr. Alfie Mcnulty MCHC (RBC) [Mass/Vol] 34.1 g/dL Normal 29.9-35.2 [facility] Comment on above: Performed By: #### C MP #### [facility] [address] [place] [address] Dr. Alfie Mcnulty MCV (RBC) [Entitic vol] 86.8 fL Normal 80.0-94.0 [facility] Comment on above: Performed By: #### C MP #### [facility] [address] [place] [address] Dr. Alfie Mcnulty MONO # 0.4 103/ul Normal 0.3-0.8 [facility] Comment on above: Performed By: #### C MP #### [facility] [address] [place] [address] Dr. Alfie Mcnulty Monocytes/100 WBC (Bld) 4.1 % Normal 1.7-12.0 [facility] Comment on above: Performed By: #### C MP #### [facility] [address] [place] [address] Dr. Alfie Mcnulty NEUT # 6.1 103/ul Normal 1.4-6.5 [facility] Comment on above: Performed By: #### C MP #### [facility] [address] [address] [address] Alfie Mcnulty Neutrophils/100 WBC (Bld) 60.6 % Normal 43.0-75.0 [facility] Comment on above: Performed By: #### C MP #### [facility] [address] [address] [address] Alfie Mcnulty Platelet mean volume (Bld) [Entitic vol] 9.3 fL Critically low 9.5-13.5 [facility] Comment on above: Performed By: #### C MP #### [facility] [address] [place] [address] Dr. Alfie Mcnulty PLT 304 103/ul Normal 150-450 [facility] Comment on above: Performed By: #### C MP #### [facility] [address] [place] [address] Dr. Alfie Mcnulty RBC 5.47 106/ul Normal 4.70-6.10 [facility] Comment on above: Performed By: #### C MP #### [facility] [address] [place] [address] Dr. Alfie Mcnulty WBC 10.0 103/ul Normal 4.0-11.0 [facility] Comment on above: Performed By: #### C MP #### [facility] [address] [place] [address] Dr. Alfie Mcnulty DRUG SCREEN RAPID (URINE)on 01-28-2022 AMP Negative Normal NEGATIVE [facility] Comment on above: Performed By: #### C MP #### [facility] [address] [place] [address] Dr. Alfie Mcnulty BAR Negative Normal NEGATIVE [facility] Comment on above: Performed By: #### C MP #### [facility] [address] [place] [address] Dr. Alfie Mcnulty BUP Negative Normal NEGATIVE [facility] Comment on above: Performed By: #### C MP #### [facility] [address] [place] [address] Dr. Alfie Mcnulty BZO Negative Normal NEGATIVE [facility] Comment on above: Performed By: #### C MP #### [facility] [address] [address] [address] Alfie Mcnulty LALITO Negative Normal NEGATIVE [facility] Comment on above: Performed By: #### C MP #### [facility] [address] [address] [address] Alfie Mcnulty CUT-OFFS SEE BELOW Normal [facility] Comment on above: Result Comment: AMP (Amphetamine): 500ng/mL, BAR (Barbituates): 200 ng/mL, BZO (Benzodiazepines): 150 ng/mL, BUP (Buprenorphine): 10 ng/mL, LALITO (Cocaine): 150 ng/mL, mAMP (Methamphetamine): 500 ng/mL, MTD (Methadone): 200 ng/mL, OPI (Opiates): 100 ng/mL, OXY (Oxycodone): 100 ng/mL, PCP (Phencyclidine): 25 ng/mL, PPX (Propoxyphene): 300 ng/mL, THC (Cannabinoids): 50 ng/mL, TCA (Trycyclic Antidepressants): 300 ng/mL Performed By: #### C MP #### [facility] [address] [place] [address] Dr. Alfie Mcnulty DRUG CUT HEADER DRUG CLASS TEST SYST EM CUT-OFF CONCENTRATIONS ARE FOLLOWS: Normal [facility] Comment on above: Performed By: #### C MP #### [facility] [address] [address] [address] Alfie Mcnulty mAMP Negative Normal NEGATIVE [facility] Comment on above: Performed By: #### C MP #### [facility] [address] [address] [address] Alfie Mcnulty MTD Negative Normal NEGATIVE [facility] Comment on above: Performed By: #### C MP #### [facility] [address] [place] [address] Dr. Alfie Mcnulty OPI Negative Normal NEGATIVE [facility] Comment on above: Performed By: #### C MP #### [facility] [address] [address] [address] Alfie Mcnulty OXY Negative Normal NEGATIVE [facility] Comment on above: Performed By: #### C MP #### [facility] [address] [place] [address] Dr. Alfie Mcnulty PCP Negative Normal NEGATIVE [facility] Comment on above: Performed By: #### C MP #### [facility] [address] [place] [address] Dr. Alfie Mcnulty PPX Negative Normal NEGATIVE [facility] Comment on above: Performed By: #### C MP #### [facility] [address] [place] [address] Dr. Alfie Mcnulty TCA Negative Normal NEGATIVE [facility] Comment on above: Performed By: #### C MP #### [facility] [address] [place] [address] Dr. Alfie Mcnulty THC Negative Normal NEGATIVE [facility] Comment on above: Performed By: #### C MP #### [facility] [address] [place] [address] Dr. Alfie Mcnulty ETHANOL (BLD ALC)on 01-29-20 22 ALC NOTE NOTE: 80 mg/dl is th e legal limit for a blood alcohol level Normal [facility] Comment on above: Performed By: #### C MP #### [facility] [address] [place] [address] Dr. Alfie Mcnulty Ethanol [Mass/Vol] 270 mg/dL Normal [facility] Comment on above: Performed By: #### C MP #### [facility] [address] [place] [address] Dr. Alfie Mcnulty PROF 14(COMP METB)on 022 Albumin [Mass/Vol] 4.1 g/dL Normal 3.4-5.0 [facility] Comment on above: Performed By: #### C MP #### [facility] [address] [place] [address] Dr. Alfie Mcunlty Albumin/Globulin [Mass ratio] 1.1 {ratio} Normal [facility] Comment on above: Performed By: #### C MP #### [facility] [address] [place] [address] Dr. Alfie Mcnulty ALP [Catalytic activity/Vol] 88 U/L Normal 46-116 [facility] Comment on above: Performed By: #### C MP #### [facility] [address] [address] [address] Alfie Mcnulty ALT [Catalytic activity/Vol] 68 U/L Critically high 16-63 [facility] Comment on above: Performed By: #### C MP #### [facility] [address] [address] [address] Alfie Mcnulty Anion gap [Moles/Vol] 12.4 mmol/L Normal [facility] Comment on above: Performed By: #### C MP #### [facility] [address] [address] [address] Alfie Mcnulty AST [Catalytic activity/Vol] 29 U/L Normal 15-37 [facility] Comment on above: Performed By: #### C MP #### [facility] [address] [address] [address] Alfie Mcnulty Bilirubin [Mass/Vol] 0.3 mg/dL Normal 0.2-1.0 [facility] Comment on above: Performed By: #### C MP #### [facility] [address] [address] [address] Alfie Mcnulty Calcium [Mass/Vol] 8.3 mg/dL Critically low 8.5-10.1 [facility] Comment on above: Performed By: #### C MP #### [facility] [address] [address] [address] Alfie Mcnulty Chloride [Moles/Vol] 103 mmol/L Normal 98-107 [facility] Comment on above: Performed By: #### C MP #### [facility] [address] [address] [address] Alfie Mcnulty CO2 [Moles/Vol] 27.9 mmol/L Normal 21.0-32.0 [facility] Comment on above: Performed By: #### C MP #### [facility] [address] [place] [address] Dr. Alfie Mcnulty Creatinine [Mass/Vol] 0.77 mg/dL Normal 0.70-1.30 [facility] Comment on above: Performed By: #### C MP #### [facility] [address] [address] [address] Alfie Mcnulty EGFR-AF MALIAN >60 Normal >=60 [facility] Comment on above: Performed By: #### C MP #### [facility] [address] [address] [address] Alfie Mcnulty EGFR-NON AF MALIAN >60 Normal >=60 [facility] Comment on above: Performed By: #### C MP #### [facility] [address] [address] [address] Alfie Mcnulty Globulin (S) [Mass/Vol] 3.8 g/dL Normal [facility] Comment on above: Performed By: #### C MP #### [facility] [address] [address] [address] Alfie Mcnulty Glucose [Mass/Vol] 99 mg/dL Normal 74-106 [facility] Comment on above: Performed By: #### C MP #### [facility] [address] [address] [address] Alfie Mcnulty Potassium [Moles/Vol] 3.3 mmol/L Critically low 3.5-5.1 [facility] Comment on above: Performed By: #### C MP #### [facility] [address] [address] [address] Alfie Mcnulty Protein [Mass/Vol] 7.9 g/dL Normal 6.4-8.2 [facility] Comment on above: Performed By: #### C MP #### [facility] [address] [address] [address] Alfie Mcnulty Sodium [Moles/Vol] 140 mmol/L Normal 136-145 [facility] Comment on above: Performed By: #### C MP #### [facility] [address] [address] [address] Alfie Mcnulty Urea nitrogen [Mass/Vol] 9.0 mg/dL Normal 7.0-18.0 [facility] Comment on above: Performed By: #### C MP #### [facility] [address] [address] [address] Alfie Mcnulty Urea nitrogen/Creatinine [Mass ratio] 11.7 mg/mg Normal [facility] Comment on above: Performed By: #### C MP #### [facility] [address] [place], [place] [address] Dr. Alfie Mcnulty SALICYLATEon 01-28-2022 SALICYLATE <2.8 Normal <=19.9 [facility] Comment on above: Performed By: #### C MP #### [facility] [id number] Alfie Mcnulty ED Noteon 06-20-2017 HIM IP Note OR [employer] Normal [facility] HIM IP Note OR [employer] Normal [facility] HIM IP Note OR [employer] Normal [facility] HIM IP Note OR [employer] Normal [facility] HIM IP Note OR [employer] Normal [facility] HIM IP Note OR [employer] Normal [facility] ED Provider Noteon 7 HIM IP Note OR [employer] Normal [facility] Vital Signs Date Time Vital Sign Value Performing Clinician Facility 05-10-2024 13:27-0400 Blood Pressure Location Donavan Rene [facility] 05-10-2024 13:27-0400 Diastolic blood pressure 76 mm[Hg] Donavan Rene [facility] 05-10-2024 13:27-0400 Heart rate 42 /min Donavan Rene [facility] 05-10-2024 13:27-0400 Respiratory rate 18 /min Ruddy[employer]jigna Rene [facility] 05-10-2024 13:27-0400 Systolic blood pressure 118 mm[Hg] Donavan Rene [facility] 01-12-2024 11:10-0400 Blood Pressure Location Mohamad Mouchli [facility] 01-12-2024 11:10-0400 Diastolic blood pressure 107 mm[Hg] Mohamad Mouchli [facility] 01-12-2024 11:10-0400 Heart rate 58 /min Mohamad Mouchli [facility] 01-12-2024 11:10-0400 Mean blood pressure 123 mm[Hg] Mohamad Mouchli [facility] 01-12-2024 11:10-0400 Respiratory rate 24 /min Mohamad Mouchli [facility] Comment on above: Result Comment: Pt states I just want t o go Sister advises patient did not have anxiety medications this a.m. 01-12-2024 11:10-0400 SaO2% (BldA) [Mass fraction] 99 % Mohamad Mouchli [facility] 01-12-2024 11:10-0400 Systolic blood pressure 155 mm[Hg] Mohamad Mouchli [facility] 01-12-2024 10:55-0400 Blood Pressure Location Mohamad Mouchli [facility] 01-12-2024 10:55-0400 Diastolic blood pressure 109 mm[Hg] Mohamad Mouchli [facility] 01-12-2024 10:55-0400 Heart rate 66 /min Mohamad Mouchli [facility] 01-12-2024 10:55-0400 Mean blood pressure 121 mm[Hg] Mohamad Mouchli [facility] 01-12-2024 10:55-0400 Respiratory rate 24 /min Mohamad Mouchli [facility] 01-12-2024 10:55-0400 SaO2% (BldA) [Mass fraction] 99 % Mohamad Mouchli [facility] 01-12-2024 10:55-0400 Systolic blood pressure 146 mm[Hg] Mohamad Mouchli [facility] 01-12-2024 10:40-0400 Blood Pressure Location Mohamad Mouchli [facility] 01-12-2024 10:40-0400 Diastolic blood pressure 94 mm[Hg] Mohamad Mouchli [facility] 01-12-2024 10:40-0400 Heart rate 95 /min Mohamad Mouchli [facility] 01-12-2024 10:40-0400 Mean blood pressure 105 mm[Hg] Mohamad Mouchli [facility] 01-12-2024 10:40-0400 Respiratory rate 26 /min Mohamad Mouchli [facility] 01-12-2024 10:40-0400 Respiratory rate 24 /min Mohamad Mouchli [facility] 01-12-2024 10:40-0400 SaO2% (BldA) [Mass fraction] 99 % Mohamad Mouchli [facility] 01-12-2024 10:40-0400 Systolic blood pressure 127 mm[Hg] Mohamad Mouchli [facility] 01-12-2024 10:34-0400 Respiratory rate 11 /min Mohamad Mouchli [facility] 01-12-2024 10:29-0400 Respiratory rate 11 /min Mohamad Mouchli [facility] 01-12-2024 10:19-0400 Body temperature 98.24 [degF] Mohamad Mouchli [facility] 01-12-2024 08:57-0400 Body temperature 98.06 [degF] Mohamad Mouchli [facility] 01-07-2024 13:39-0400 Blood Pressure Location Mohamad Mouchli [facility] 01-07-2024 13:39-0400 Diastolic blood pressure 83 mm[Hg] Mohamad Mouchli [facility] 01-07-2024 13:39-0400 Heart rate 73 /min Mohamad Mouchli [facility] 01-07-2024 13:39-0400 Respiratory rate 16 /min Mohamad Mouchli [facility] 01-07-2024 13:39-0400 Systolic blood pressure 126 mm[Hg] Mohamad Mouchli [facility] 02-06-2023 14:13-0400 Blood Pressure Location Resendiz SALAM [facility] 02-06-2023 14:13-0400 Diastolic blood pressure 82 mm[Hg] Resendiz SALAM [facility] 02-06-2023 14:13-0400 Heart rate 89 /min Resendiz SALAM [facility] 02-06-2023 14:13-0400 Respiratory rate 16 /min Resendiz SALAM [facility] 02-06-2023 14:13-0400 Systolic blood pressure 122 mm[Hg] Resendiz SALAM [facility] 07-26-2022 20:44-0500 Body height 177.8 cm [facility] Provider Work Phone: [facility] 07-26-2022 20:44-0500 Body mass index (BMI) [Ratio] 23.88 kg/m2 [facility] Provider Work Phone: [facility] 07-26-2022 20:44-0500 Body temperature 98.6 [degF] [facility] Provider Work Phone: [facility] 07-26-2022 20:44-0500 Body weight 75.48 kg [facility] Provider Work Phone: [facility] 07-26-2022 20:44-0500 Diastolic blood pressure 80 mm[Hg] [facility] Provider Work Phone: [facility] 07-26-2022 20:44-0500 Heart rate 62 /min [facility] Provider Work Phone: [facility] 07-26-2022 20:44-0500 Respiratory rate 18 /min [facility] Provider Work Phone: [facility] 07-26-2022 20:44-0500 SaO2% (BldA) [Mass fraction] 98 % [facility] Provider Work Phone: [facility] 07-26-2022 20:44-0500 Systolic blood pressure 118 mm[Hg] [facility] Provider Work Phone: [facility] 05-28-2022 07:30-0400 Body temperature 97.6 [degF] [facility] 05-28-2022 07:30-0400 Diastolic blood pressure 61 mm[Hg] [facility] 05-28-2022 07:30-0400 Heart rate 89 /min [facility] 05-28-2022 07:30-0400 Respiratory rate 18 /min [facility] 05-28-2022 07:30-0400 SaO2% (BldA) [Mass fraction] 96 % [facility] 05-28-2022 07:30-0400 Systolic blood pressure 109 mm[Hg] [facility] 05-27-2022 09:00-0400 Body weight 73.02 kg [facility] 05-23-2022 14:42-0400 Body height 177.8 cm [facility] 02-10-2022 15:30-0400 Diastolic blood pressure 63 mm[Hg] Luis A Lizandro [facility] 02-10-2022 15:30-0400 Heart rate 102 /min Luis A Lizandro [facility] 02-10-2022 15:30-0400 Respiratory rate 15 /min Luis A Lizandro [facility] 02-10-2022 15:30-0400 SaO2% (BldA) [Mass fraction] 95 % Luis A Lizandro [facility] 02-10-2022 15:30-0400 Systolic blood pressure 107 mm[Hg] Luis A Lizandro [facility] 02-10-2022 11:07-0400 Diastolic blood pressure 72 mm[Hg] Luis A Lizandro [facility] 02-10-2022 11:07-0400 Heart rate 105 /min Luis A Lizandro [facility] 02-10-2022 11:07-0400 Mean blood pressure 87 mm[Hg] Luis A Lizandro [facility] 02-10-2022 11:07-0400 Respiratory rate 16 /min Luis A Lizandro [facility] 02-10-2022 11:07-0400 SaO2% (BldA) [Mass fraction] 94 % Luis A Lizandro [facility] 02-10-2022 11:07-0400 Systolic blood pressure 117 mm[Hg] Luis A Lizandro [facility] 02-10-2022 07:00-0400 Body temperature 98.24 [degF] [facility] [employer] [facility] 02-10-2022 07:00-0400 Diastolic blood pressure 74 mm[Hg] [facility] [employer] [facility] 02-10-2022 07:00-0400 Heart rate 93 /min [facility] [employer] [facility] 02-10-2022 07:00-0400 Mean blood pressure 85 mm[Hg] [facility] [employer] [facility] 02-10-2022 07:00-0400 Respiratory rate 18 /min [facility] [employer] [facility] 02-10-2022 07:00-0400 SaO2% (BldA) [Mass fraction] 99 % [facility] [employer] [facility] 02-05-2022 07:30-0400 Body temperature 97.5 [degF] PHYSICIAN [facility] 02-05-2022 07:30-0400 Diastolic blood pressure 65 mm[Hg] PHYSICIAN [facility] 02-05-2022 07:30-0400 Heart rate 78 /min PHYSICIAN [facility] 02-05-2022 07:30-0400 SaO2% (BldA) [Mass fraction] 97 % PHYSICIAN [facility] 02-05-2022 07:30-0400 Systolic blood pressure 109 mm[Hg] PHYSICIAN [facility] 02-04-2022 19:46-0400 Respiratory rate 16 /min PHYSICIAN [facility] 02-04-2022 09:00-0400 Body weight 65.9 kg PHYSICIAN [facility] 01-30-2022 15:13-0400 Body height 177.8 cm PHYSICIAN [facility] 01-29-2022 11:49-0400 Body mass index (BMI) [Ratio] 20.7 kg/m2 PHYSICIAN [facility] Encounters Encounter Date Encounter Type Care Provider Facility Start: 02-08-2025 ambulatory Endy Benavides acility:[facility] Start: 12-28-2024 End: 12-28-2024 [facility] Start: 09-15-2024 End: 09-15-2024 ambulatory Mohedisd A. Mojorge Facility[facility] Start: 09-15-2024 End: 09-15-2024 Patient encounter procedure [facility] Start: 05-10-2024 End: 05-10-2024 [facility] Start: 05-10-2024 End: 05-10-2024 Patient encounter procedure [facility] Start: 02-18-2024 End: 02-18-2024 ambulatory [facility]adili [facility] Start: 02-18-2024 End: 02-18-2024 Patient encounter procedure [facility] Start: 01-12-2024 End: 01-12-2024 ambulatory Mohamad A. Mouchli [facility] Start: 01-12-2024 End: 01-12-2024 Patient encounter procedure Mohamad A. Mouchli [facility] Start: 01-07-2024 End: 01-07-2024 [facility] Start: 01-07-2024 End: 01-07-2024 Patient encounter procedure Mohamad A. Mouchli [facility] Start: 04-21-2023 End: 05-02-2023 Pre-admission assessment XXXX NONE [facility] Start: 02-06-2023 End: 02-14-2023 Pre-admission assessment Martín POPE [facility] Start: 02-06-2023 End: 02-06-2023 Patient encounter procedure Martín POPE [facility] Start: 11-06-2022 End: 11-06-[address] NONE LISTED REQUEST Facility: Start: 09-29-2022 End: 09-29-[address] NONE LISTED REQUEST Facility:[facility] Start: 09-26-2022 End: 09-26-2022 Patient encounter procedure CHEVY JOY [facility] Start: 09-09-2022 End: 09-09-2022 Patient encounter procedure MIKHAIL GIBBS [facility] [place] Start: 07-27-2022 Orders Only Titi Eason MD Work Phone: [facility] Start: 07-26-2022 End: 07-30-2022 ambulatory UNKNOWN PROVIDER Facility:[facility] Start: 07-26-2022 End: 07-30-2022 Subsequent hospital visit by physician [facility] Intake Provider Work Phone: [facility] Comment on above: [facility] in [facility] (Primary Dx) Start: 05-23-2022 End: 05-28-2022 Evaluation and management of inpatient [facility] Start: 05-22-2022 End: 05-23-[address] NONE LISTED REQUEST Facility: Start: 05-20-2022 End: 05-20-2022 ambulatory NONE LISTED REQUEST Facility:[facility] Start: 05-02-2022 End: 05-02-2022 ambulatory NONE LISTED REQUEST Facility:[facility] Start: 03-23-2022 End: 03-24-[address] DILMA SANTAMARIA Facility:[facility] Start: 02-10-2022 End: 02-10-2022 Emergency department patient visit Luis A Bone [facility] Start: 01-29-2022 End: 02-05-2022 Evaluation and management of inpatient PHYSICIAN CATHERINE STANLEY [facility] Start: 01-28-2022 End: 01-29-[address] DILMA SANTAMARIA Facility:[facility] Start: 06-20-2017 End: 06-20-2017 Evaluation and management of inpatient BERTO BOWDEN [facility] Procedures Date Procedure Procedure Detail Performing Clinician Start: 01-12-2024 Colonoscopy Donavan Rene Start: 01-12-2024 Esophagogastroduodenoscopy Mohjose vidal Start: 07-28-2022 Skin test tuberculosis intradermal Honorio Guevara [employer] RN Work Phone: Start: 02-04-2022 US scan of bladder PHYSICIAN CATHERINE STANLEY Start: 06-20-2017 IP CONSULT TO TRAUMA SURGERY BERTO Hernandez Luis A Bone Plan of Treatment Date Care Activity Detail Author Start: 2043 Shingles (RZV) Vaccine (1 of 2) Shingles (RZV) Vaccine (1 of 2) [facility] Start: 06-20-2027 Tetanus vaccination Tetanus (T d or Tdap) Booster [facility] Start: 07-27-2022 End: 08-27-2022 SARS-CoV-2 (COVID-19) RNA [Presence] in Unspecified specimen by MORIAH with probe detection NOVEL CORONAVIRUS (COVID-19) Lab Routine Encounter for laboratory testing for severe acute respiratory syndrome coronavirus 2 (SARS-CoV-2) Expected: 07/27/2022, Expires: 08/27/2022 [facility] Work Phone: Comment on above: Expected: 07/27/2022 , Expires: 08/27/2022 Start: 05-28-2022 [facility] Start: 05-23-2022 Hospital admission [facility] Start: 1995 COVID-19 Vaccine (#1) COVID-19 Vacci ne (#1) [facility] Chlamydia trachomati s DNA [Presence] in Unspecified specimen by MORIAH with probe detection [facility] Work Phone: Neisseria gonorrhoea e DNA [Presence] in Unspecified specimen by MORIAH with probe detection [facility] Work Phone: Patient Education Schizoaffectiv e Disorder (DC) [facility] DC Instructions [facility] Work Phone: Patient referral [facility] Work Phone: Trichomonas vaginali s DNA [Presence] in Unspecified specimen by MORIAH with probe detection [facility] Work Phone: Immunizations Immunization Date Immunization Notes Care Provider Marlyn smallwood 07-26-2022 tuberculin skin test ; purified protein derivative solution, intradermal Titi Eason MD Work Phone: [facility] 05-25-2022 influenza virus vaccine, unspecified formulation Martín POPE [facility] 05-25-2022 influenza, injectable, quadrivalent, preservative free [facility] 12-09-2021 diphtheria, tetanus toxoids and pertussis vaccine Titi Eason MD Work Phone: [facility] 09-03-2019 hepatitis A vaccine, adult dosage Titi Eason MD Work Phone: [facility] Comment on above: Result Comment: 2022: [facility] 06-20-2017 tetanus toxoid, reduced diphtheria toxoid, and acellular pertussis vaccine, adsorbed Luis A Bone [facility] Comment on above: Early/Late Reason: A ccommodate D/C 02-10-2016 tetanus toxoid, reduced diphtheria toxoid, and acellular pertussis vaccine, adsorbed Luis A Lizandro [facility] 02-25-2012 tetanus toxoid, reduced diphtheria toxoid, and acellular pertussis vaccine, adsorbed Luis A Lizandro [facility] 07-13-2009 novel [id number], preservative-free, injectable Titi Eason MD Work Phone: [facility] 05-14-2000 hepatitis B vaccine, pediatric or pediatric/adolescent dosage Titi Eason MD Work Phone: [facility] 05-14-2000 measles, mumps and rubella virus vaccine Titi Eason MD Work Phone: [facility] 07-26-1996 hepatitis B vaccine, pediatric or pediatric/adolescent dosage Resendiz SALAM [facility] 07-26-1996 Hib, unspecified formulation Resendiz SALAM [facility] 04-09-1995 measles, mumps and rubella virus vaccine Resendiz SALAM [facility] 1993 diphtheria and tetanus toxoids, adsorbed for pediatric use Resendiz SALAM [facility] 1993 Hib, unspecified formulation Resendiz SALAM [facility] NEGATED: Highlighted row has not occurred!05-10-2024 influenza virus vaccine, unspecified formulation Donavan Rene [facility] NEGATED: Highlighted row has not occurred!10-15-2018 influenza, seasonal, injectable Luis A Lizandro [facility] Payers Date Payer Category Payer Self-pay [id number] 2022 [employer] [id number] 2022 [employer] [id number] 2022 Medicaid MEDICAID [facility]FS-[facility] MEDICAID [id number] 2022-Present [address] [place] [address] Medicaid [id number] 1993 Unknown [id number]. 593 1993 Unknown [id number] 2.16.840.1.824430.3.579.2. 593 1993 Unknown [id number] 2.16.840.1.853244.3.579.2. 593 1993 Unknown [id number] 2.16.840.1.434360.3.579.2. 593 1993 Unknown [id number] 2.16.840.1.932412.3.579.2. 593 1993 Unknown [id number] 2.16.840.1.030144.3.579.2. 593 1993 Unknown [id number] 2.16.840.1.827313.3.579.2. 593 1993 Unknown [id number] 2.16.840.1.013692.3.579.2. 727 1993 Unknown [id number] 2.16.840.1.169468.3.579.2. 727 1993 Unknown [id number] 2.16.840.1.239852.3.579.2. 727 1993 Unknown [id number] 2.16.840.1.084306.3.579.2. 727 1993 Unknown [id number] 2.16.840.1.072966.3.579.2. 727 1993 Unknown [id number] 2.16.840.1.604422.3.579.2. 727 1959 Unknown [id number] 1949 Unknown [id number] 2.16.840.1.078171.3.579.2. 732 Unknown [id number] 2.16.840.1.488843.3.579.2. 531 Social History Date Type Detail Facility Start: 02-03-2022 End: 05-23-2022 Tobacco smoking status NHIS Smoker (finding) [facility] Start: 1995 Sex Assigned At Male [facility] Tobacco [facility] Comment on above: smokes 5 cigs per da y. Sex Assigned At Male [facility] Tobacco smoking status [facility] Start: 1995 Sex Assigned At Not on file M [facility] Tobacco smoking status No Smoking Status Entered [facility] [place] Start: 02-06-2023 End: 05-10-2024 Tobacco smoking status Heavy tobacco smoker (finding) [facility] Comment on above: smokes 5 cigs per da y. Goals Date Patient Goal Desired Activity /State Functional Status Date Assessment Result Facility 05-10-2024 Functional Status N/A [facility] 01-12-2024 Functional Status N/A [facility] 01-07-2024 Functional Status N/A [facility] 02-06-2023 Functional Status N/A [facility] 05-28-2022 Functional status Patient at [facility] Work Phone: 02-10-2022 Functional Status N/A [facility] 02-05-2022 Functional status Patient at [facility] Work Phone: Mental Status Date Assessment Result Facility 05-28-2022 Cognitive function Cognitive Sta tus Patient at Baseline [facility] Work Phone: 02-05-2022 Cognitive function Cognitive Sta s Patient at Baseline [facility] Work Phone: Clinical Notes 01-30-2022 to 01-13-2024 Note Date & Type Note Facility 01-13-2024 Note [id number] #[id number] [facility] 01-12-2024 Evaluation + Plan note Extrac safia from: Title:ANES Post General Author:Pro Chiu DO. Date:01/12/24 Plan Transfer/Discharge: Patient exhibiting no signs of N/V. Hydration status is adequate. Extracted from: Title:Aram Basic PRE Author:Curt Chiu DO Date:01/12/24 Plan [place] [employer]hes[employer] (ASA) physical status classification: Class III. Anesthetic Preoperative Plan: Anesthesia General. Future Scheduled Tests Laboratory* Pancreatic Elastase, Fecal 01/07/24 * Calprotectin, Fecal 01/07/24 * HCV FibroSure 01/07/24 * Lab Miscellaneous-LC 02/06/23 * HCV RNA by PCR, Qn Rfx Cassandra 01/07/24 * HCV RNA by PCR, Qn Rfx Cassandra 02/06/23 * 5 HIAA 24 Hour Urine 01/07/24 * IgA, Quant. 01/07/24 * O & P Exam, Routine 01/07/24 * Celiac Disease Comprehensive 01/07/24 * HCV Genotyping Non Reflex 01/07/24 * Clostridium Difficile PCR 01/07/24 * HCV RT-PCR, Quant (Non-Graph) 01/07/24 * Hepatitis A Virus (HAV) Antibody, Total 01/07/24 * HIV Screen 4th Generation wRfx 01/07/24 * Enteric Panel by PCR 01/07/24 * Hepatitis A Antibody IgM 01/07/24 * Hepatitis B Surface Antibody 01/07/24 * Hepatitis B Surface Antigen 01/07/24 * Thyroid Stimulating Hormone 01/07/24 Radiology* CT Abdomen/Pelvis w/contrast (enterography) 01/07/24 [facility]05-20-2024 Hospital Discharge instructions Patient Education 01/12/2024 10:40:30 Colonoscopy, Care After Surgery Salam (CUSTOM) Colonoscopy Care After Surgery Please read the instructions outlined below and refer to this sheet in the next few weeks. These discharge instructions provide you with general information on caring for yourself after you leave thehospital. Your doctor may also give you specific instructions. While your treatment has been planned according to the most current medical practices available, unavoidable complications occasionally occur. If you have any problems or questions after discharge, please call your doctor. ACTIVITY You may resume your regular activity, but move at a slower pace for the next 24 hours. Take frequent rest periods for the next 24 hours. Walking will help get rid of the air and reduce the bloated feeling in your abdomen (belly). No driving for 24 hours (because of the anesthesia (medicine) used during the test). You may shower. Do not sign any important legal documents or operate any machinery for 24 hours (because of the anesthesia used during the test). NUTRITION Drink plenty of fluids. You may resume your normal diet as instructed by your doctor. Begin with a light meal and progress to your normal diet. Heavy or fried foods are harder to digestand may make you feel nauseated (sick to your stomach). Avoid alcoholic beverages for 24 hours or as instructed. MEDICATIONS You may resume your normal medications unless your doctor tells you otherwise. WHAT YOU CAN EXPECT TODAY Some feelings of bloating in the abdomen. Passage of more gas than usual. Spotting of blood in your stool or on the toilet paper. FOLLOW-UP Your doctor will discuss the results of your test with you. SEEK IMMEDIATE MEDICAL ATTENTION IF: There is more than a spotting of blood in your stool. There is abdominal distention (your abdomen is swollen). There is vomiting. You have a temperature over 101.5 F. There is abdominal pain or discomfort that is severe or gets worse throughout the day. 01/12/2024 10:40:27 Endoscopy, Care After Procedure [facility] Endoscopy Care After Procedure Please read the instructions outlined below and refer to this sheet in the next few weeks. These discharge instructions provide you with general information on caring for yourself after you leave thehospital. Your doctor may also give you specific instructions. While your treatment has been planned according to the most current medical practices available, unavoidable complications occasionally occur. If you have any problems or questions after discharge, please call your doctor. ACTIVITY You may resume your regular activity but move at a slower pace for the next 24 hours. Take frequent rest periods for the next 24 hours. Walking will help expel (get rid of) the air and reduce the bloated feeling in your abdomen. No driving for 24 hours (because of the anesthesia (medicine) used during the test). You may shower. Do not sign any important legal documents or operate any machinery for 24 hours (because of the anesthesia used during the test). NUTRITION Drink plenty of fluids. You may resume your normal diet. Begin with a light meal and progress to your normal diet. Avoid alcoholic beverages for 24 hours or as instructed by your caregiver. MEDICATIONS You may resume your normal medications unless your caregiver tells you otherwise. WHAT YOU CAN EXPECT TODAY You may experience abdominal discomfort such as a feeling of fullness or gas pains. FOLLOW-UP Your doctor will discuss the results of your test with you. SEEK IMMEDIATE MEDICAL ATTENTION IF ANY OF THE FOLLOWING OCCUR: Excessive nausea (feeling sick to your stomach) and/or vomiting. Severe abdominal pain and distention (swelling). Trouble swallowing. Temperature over 100 F (37.8 C). Rectal bleeding or vomiting of blood. Document Released: 03/25/2005 Document Re-Released: 02/02/2007 [facility] Patient Information [employer]ise. 01/12/2024 10:40:19 Esophagitis Esophagitis Esophagitis is inflammation of the esophagus. The esophagus is the tube that carries food from the mouth to the stomach. Esophagitis can cause soreness or pain in the esophagus. This condition can make it difficult and painful to swallow. What are the causes? Most causes of esophagitis are not serious. Common causes of this condition include: Gastroesophageal reflux disease (GERD). This is when stomach contents move back up into the esophagus (reflux). Repeated vomiting. An allergic reaction, especially caused by food allergies (eosinophilic esophagitis). Injury to the esophagus by swallowing large pills with or without water, or swallowing certain types of medicines. Swallowing harmful chemicals, such as household cleaning products. Drinking a lot of alcohol. An infection of the esophagus. This most often occurs in people who have a weakened immune system. Radiation or chemotherapy treatment for cancer. Certain diseases such as sarcoidosis, Crohn's disease, and scleroderma. What are the signs or symptoms? Symptoms of this condition include: Difficult or painful swallowing. Pain with swallowing acidic liquids, such as citrus juices. You may also have pain when you burp. Chest pain and difficulty breathing. Nausea and vomiting. Pain in the abdomen. Weight loss. Ulcers in the mouth and white patches in the mouth (candidiasis). Fever. Coughing up blood or vomiting blood. Stool that is black, tarry, or bright red. How is this diagnosed? This condition may be diagnosed based on your medical history and a physical exam. You may also have other tests, including: A test to examine your esophagus and stomach with a small flexible tube with a camera (endoscopy). A test that measures the acidity level in your esophagus. A test that measures how much pressure is on your esophagus. A barium swallow or modified barium swallow to show the shape, size, and functioning of your esophagus. Allergy tests. How is this treated? Treatment for this condition depends on the cause of your esophagitis. In some cases, steroids or other medicines may be given to help relieve your symptoms or to treat the underlying cause of your condition. You may have to make some lifestyle changes, such as: Avoiding alcohol. Quitting any products that contain nicotine or tobacco. These products include cigarettes, chewing tobacco, and vaping devices, such as e-cigarettes. If you need help quitting, ask your health care provider. Changing your diet. Exercising. Changing your sleep habits and your sleep environment. Follow these instructions at home: Medicines Take unra-vag-vmilhci and prescription medicines only as told by your health care provider. Do not take aspirin, ibuprofen, or other NSAIDs unless your health care provider told you to do so. If you have trouble taking pills: ?Use a pill splitter to decrease the size of the pill. This will decrease the chance of the pill getting stuck or injuring your esophagus. ?Drink water after you take a pill. Eating and drinking Avoid foods and drinks that seem to make your symptoms worse. Follow a diet as recommended by your health care provider. This may involve avoiding foods and drinks such as: ?Coffee and tea, with or without caffeine. ?Drinks that contain alcohol. ?Energy drinks and sports drinks. ?Carbonated drinks or sodas. ?Chocolate and cocoa. ?Peppermint and mint flavorings. ?Garlic and onions. ?Horseradish. ?Spicy and acidic foods, including peppers, chili powder, pagan powder, vinegar, hot sauces, and barbecue sauce. ?[place]oon fruit juices and citrus fruits, such as oranges, fuentes, and limes. ?Tomato-based foods, such as red sauce, chili, salsa, and pizza with red sauce. ?Fried and fatty foods, such as donuts, amharic fries, potato chips, and high-fat dressings. ?High-fat meats, such as hot dogs and fatty cuts of red and white meats, such as rib eye steak, sausage, ham, and hansen. ?High-fat dairy items, such as whole milk, butter, and cream cheese. Lifestyle Eat small, frequent meals instead of large meals. Avoid drinking large amounts of liquid with your meals. Avoid eating meals during the 2 3 hours before bedtime. Avoid lying down right after you eat. Do not exercise right after you eat. Do not use any products that contain nicotine or tobacco. These products include cigarettes, chewing tobacco, and vaping devices, such as e-cigarettes. If you need help quitting, ask your health careprovider. General instructions Pay attention to any changes in your symptoms. Let your health care provider know about them. Wear loose-fitting clothing. Do not wear anything tight around your waist that causes pressure on your abdomen. Raise (elevate) the head of your bed about 6 inches (15 cm). You may need to use a wedge to do this. Try relaxation strategies such as yoga, deep breathing, or meditation to manage stress. If you needhelp reducing stress, ask your health care provider. If you are overweight, reduce your weight to an amount that is healthy for you. Ask your health care provider for guidance about a safe weight loss goal. Keep all follow-up visits. This is important. Contact a health care provider if: You have new symptoms. You have unexplained weight loss. You have difficulty swallowing, or it hurts to swallow. You have wheezing or a cough that does not go away. Your symptoms do not improve with treatment. You have frequent heartburn for more than two weeks. Get help right away if: You have sudden severe pain in your arms, neck, jaw, teeth, or back. You suddenly feel sweaty, dizzy, or light-headed. You have chest pain or shortness of breath. You vomit and the vomit is green, yellow, or black, or it looks like blood or coffee grounds. Your stool is red, bloody, or black. You have a fever. You cannot swallow, drink, or eat. These symptoms may represent a serious problem that is an emergency. Do not wait to see if the symptoms will go away. Get medical help right away. Call your local emergency services (911 in the [place] Do not drive yourself to the hospital. Summary Esophagitis is inflammation of the esophagus. Most causes of esophagitis are not serious. Follow your health care provider's instructions about eating and drinking. Contact a health care provider if you have new symptoms, have weight loss, or coughing that does not stop. Get help right away if you have severe pain in the arms, neck, jaw, teeth, or back, or if you have chest pain, shortness of breath, or fever. This information is not intended to replace advice given to you by your health care provider. Make sure you discuss any questions you have with your health care provider. Document Revised: 02/19/2021 Document Reviewed: 02/19/2021 [employer] Patient Education 2022 [employer]. 01/12/2024 10:40:18 Duodenitis Duodenitis Duodenitis is inflammation of the lining of the first part of the small intestine (duodenum). It iscommonly caused by an infection from bacteria, which may also lead to open sores (ulcers) in the intestine. Duodenitis may develop suddenly and last for a short time (acute), or it may develop gradually and last for months or years (chronic). What are the causes? The most common cause of duodenitis is an infection from a type of bacteria called Helicobacter pylori (H. pylori). Other causes of this condition include: Long-term use of NSAIDs. Excessive use of alcohol. An infection of the small intestine caused by the Giardia parasite (giardiasis). Crohn's disease. Certain diseases of the body's defense system (immune system). Certain treatments for cancer. What increases the risk? The following factors may make you more likely to develop this condition: Smoking cigarettes. Drinking alcohol. Having a family history of duodenitis. Taking NSAIDs. Eating a high-fat diet. What are the signs or symptoms? Symptoms of this condition may include: Gnawing or burning pain in the upper center of the abdomen (epigastric pain). This may get worse when the stomach is empty and may get better after eating. Abdominal cramps. Nausea and vomiting. Bloody vomit. Stools that are bloody, dark, or look like tar. Diarrhea. Weight loss. Fatigue. How is this diagnosed? This condition may be diagnosed based on your medical history and a physical exam. You may also have tests, such as: Blood tests. Stool tests. A test that checks the gases in your breath. An X-ray that is done after you swallow a liquid (barium) that makes your digestive tract easier tosee. Endoscopy. This is an exam of the duodenum that is done by putting a thin tube with a tiny camera on the end (endoscope) down your throat. A sample of tissue from your duodenum (biopsy) may be removed with the endoscope and examined under a microscope for signs of inflammation and infection. How is this treated? Treatment depends on the cause of your condition. Treatment may include: Antibiotic medicine to treat H. pylori infection. Stopping your intake of NSAIDs. Medicine to reduce stomach acids. Medicines to treat other conditions, such as Crohn's disease or giardiasis. Surgery to treat severe inflammation that causes scarring or severe bleeding. Follow these instructions at home: Medicines Take bdma-[id number] and prescription medicines only as told by your health care provider. If you were prescribed an antibiotic medicine, take it as told by your health care provider. Do notstop taking the antibiotic even if you start to feel better. Eating and drinking Eat small, frequent meals. Do not drink alcohol. Drink enough water to keep your urine pale yellow. Follow instructions from your health care provider about eating or drinking restrictions. You may be asked to avoid: ?Caffeinated drinks. ?Chocolate. ?Peppermint or mint-flavored food or drinks. ?Garlic or onions. ?Spicy foods. ?Chickaloon fruits. ?Tomato-based foods. ?Fatty or fried foods. General instructions Do not use any products that contain nicotine or tobacco, such as cigarettes and e-cigarettes. If you need help quitting, ask your health care provider. Keep all follow-up visits as told by your health care provider. This is important. Contact a health care provider if: You have a fever. Your symptoms come back, get worse, or do not get better with treatment. Get help right away if: You vomit blood. You have severe abdominal pain. Your abdomen swells and is painful. You have a lot of blood in your stool. You feel dizzy or light-headed. Summary Duodenitis is inflammation of the lining of the first part of the small intestine. This part of thesmall intestine is called the duodenum. Duodenitis may develop suddenly and last for a short time (acute), or it may develop gradually and last longer (chronic). The most common cause of duodenitis is an infection from a type of bacteria. Take akgo-fug-[id number] and prescription medicines only as told by your health care provider. This information is not intended to replace advice given to you by your health care provider. Make sure you discuss any questions you have with your health care provider. Document Revised: 02/19/2022 Document Reviewed: 02/20/2022 iloho Patient Education 2022 [employer]. Follow Up Care 01/07/2024 14:27:49 With:Edgard WILD, Donavan Cates, [place], [facility] Address: [address] [place] [address], [address] [place] [address]- [phone] When: Unknown Comments:Office will call to schedule follow up appointment and/or review any pending biopsy resultsCall forany problems. [facility]05-15-2024 Evaluation + Plan note Future Scheduled Tests Laboratory* Pancreatic Elastase, Fecal 01/07/24 * Calprotectin, Fecal 01/07/24 * HCV FibroSure 01/07/24 * HCV RNA by PCR, Qn Rfx Cassandra 01/07/24 * 5 HIAA 24 Hour Urine 01/07/24 * IgA, Quant. 01/07/24 * O & P Exam, Routine 01/07/24 * Celiac Disease Comprehensive 01/07/24 * HCV Genotyping Non Reflex 01/07/24 * Clostridium Difficile PCR 01/07/24 * HCV RT-PCR, Quant (Non-Graph) 01/07/24 * Hepatitis A Virus (HAV) Antibody, Total 01/07/24 * HIV Screen 4th Generation wRfx 01/07/24 * Enteric Panel by PCR 01/07/24 * Hepatitis A Antibody IgM 01/07/24 * Hepatitis B Surface Antibody 01/07/24 * Hepatitis B Surface Antigen 01/07/24 * Thyroid Stimulating Hormone 01/07/24 Radiology* CT Abdomen/Pelvis w/contrast (enterography) 01/07/24 [facility] 05-15-2024 Evaluation + Plan note Future Scheduled Tests Laboratory* Pancreatic Elastase, Fecal 01/07/24 * Calprotectin, Fecal 01/07/24 * HCV FibroSure 01/07/24 * HCV RNA by PCR, Qn Rfx Cassandra 01/07/24 * 5 HIAA 24 Hour Urine 01/07/24 * IgA, Quant. 01/07/24 * O & P Exam, Routine 01/07/24 * Celiac Disease Comprehensive 01/07/24 * HCV Genotyping Non Reflex 01/07/24 * Clostridium Difficile PCR 01/07/24 * HCV RT-PCR, Quant (Non-Graph) 01/07/24 * Hepatitis A Virus (HAV) Antibody, Total 01/07/24 * HIV Screen 4th Generation wRfx 01/07/24 * Enteric Panel by PCR 01/07/24 * Hepatitis A Antibody IgM 01/07/24 * Hepatitis B Surface Antibody 01/07/24 * Hepatitis B Surface Antigen 01/07/24 * Thyroid Stimulating Hormone 01/07/24 Radiology* CT Abdomen/Pelvis w/contrast (enterography) 05/10/24 [facility] 06-15-2023 Evaluation + Plan note Future Scheduled Tests Laboratory* Lab Miscellaneous-LC 02/06/23 * HCV RNA by PCR, Qn Rfx Cassandra 02/06/23 [facility]02-02-2023 Evaluation + Plan note Diagnostic Tests Pending * HIV Screen 4th Generation wRfx 09/26/22 * Acute Hepatitis A B C Panel 09/26/22 [facility]12-05-2022 History of Present illness Narrative* João Bella LPN - 07/29/2022 5:20 PM EST Pt to med cart c/o headache. Requesting tylenol. Order pended to provider pool for review. * Ayan Beltran RN - 07/26/2022 9:18 PM EST Patient/Inmate Health Assessment Meeta Caraballo, 27 year old male, is admitted to [facility] This is the first admission within the last 12 months. Pt was living at [facility]. Patient/inmate is being seen today for 14 Day Health Assessment. Pt brought into intake at [facility]. Patient PPD administered right forearm . Conception protocol education explained. Pt voices understanding. Pt medications reconciled and verified, meds pended to provider. Pt takes trazodone, not on formulary. Pt gets invega sustenna, got it two weeks ago, says provider is from [employer]. Consulted mental health- dx schizoeffective. Pt requests dental consult, has some teeth that are painful. Pt denies drug/alcohol use. Pt at this time calm and cooperative. Assessment otherwise unremarkable at this time. Pt denies suicidal thoughts or ideations. All receiving screen information reviewed including communicable diseases, chronic diseases and mental health evaluation. History There is no problem list on file for this patient. No past medical history on file. No past surgical history on file. Immunization History Administered Date(s) Administered TST-PPD, intradermal (PPD) (CVX=96) 07/26/2022 Health Maintenance Topic Date Due COVID-19 Vaccine (1) Never done Tdap Booster Never done Influenza Vaccine (1) 05/25/2022 Shingles (RZV) Vaccine (1 of 2) 2043 Hepatitis C Antibody Completed HIV Test Completed Pneumococcal Vaccine(s) Aged Out Physical findings BP 118/80 (BP Location: right arm, BP position: sitting, Cuff Size: adult) Pulse 62 Temp 98.6 F(37 C) (Temporal) Resp 18 Ht 5' 10 (1.778 m) Wt 166 lb 6.4 oz (75.5 kg) SpO2 98% BMI 23.88 kg/m Physical Exam No flowsheet data found. No results found for this or any previous visit (from the past 19107 hour(s)). Basic Metabolic Panel None No results found for: HBA1C No results found for: HIVLOAD ASSESSMENT/PLAN Inmate in correctional facility Last notes from admission, hospital or emergency department discharge summaries, or primary care visits were reviewed, if available at the time of the health assessment. CareEverywhere immunizations,allergies, problem list were reviewed and reconciled with internal records. Receiving screen was reviewed and any interim acute care provided during admission. Clinical concerns: Documentation of health assessment completed for licensed independent provider review Diagnostic and therapeutic orders pended for licensed independent provider review and completion Oral hygiene and preventative oral education provided Patient/inmate questions answered, callahan education provided: kite protocol Admission problem list updated to reflect review and clinical findings Ayan Beltran RN documented in this [id number] Reason for referral (narrative)* Specialty Diagnoses / Procedures Referred By Alicja hernandez Referred To Contact Titi Eason MD [address] [place] [address] [place] [address] Referral ID Status Reason Start Date Expiration Date Visits Re quested Visits Authorized [id number] Discharge summary Author Jens Neal [facility] May 28, 2022 1:54pm Note Date/Time May 28, 2022 12 :47pm [facility] EN[facility] [address] [place] [address] Discharge Summary Signed Patient: Meeta Caraballo MR#: [id number] : 1995 Acct:[id number] Age/Sex: 27 / M Adm Date: 2 Loc: Room: [address] [place] [address]: Maddie Chester MD Copies to: NON STAFF MD Jens Hernández MD~ Providers Date of Discharge: 05/28/22 Discharging Provider: Jens Neal Primary Care Provider: NON STAFF Discharge Diagnosis (1) Schizoaffective disorder: (2) Alcohol use disorder: Final Diagnosis Final Discharge Diagnosis: Schizoaffective disorder Alcohol use disorder Summary Hospital Course Hospital course: According to admission note: Mr. Jaime is a 27-year-old male who presents with suicidal ideation, and a past history of schizo affective depression. Last night patient stated he wanted to commit suicide by overdosing on pills, but cannot remember which ones. He told his brother and was taken to the emergency room.? Patient stopped taking his medications 2 weeks ago, when questioned, he responded he did not know why.? He has a history of alcohol abusestating he drinks whenever I can going on binge drinking sessions regularly. Patient was personally seen by me on the day of the encounter.? I reviewed the history and performed the callahan elements of the assessment.? I formulated the planof care and confirmed this with the medical student as noted below Patient reports he has been feeling depressed and self-medicating with alcohol.?He has not been compliant with medications.? He slept poorly last night and would like a medication to help him sleep.? He is not hungry, and is having nicotine and alcohol cravings.? ? He reports a significant migraine this morningand kept a sheet over his head during our conversation.? Depression 5, anxiety 5.? Admits to little bit of suicidality.? Denies homicidality.? Denies currenthallucinations. Past psych history: Schizoaffective depression Past psychiatric hospitalizations: 3 previous admissions Past suicide attempts: Denies Family psych history: Anxiety and depression Previous medications: Cannot remember, chart states home meds are buspirone, Lexapro, Vivitrol Smoking Status: Positive Tobacco Type: Cigarettes Substance Use Type: Denies Alcohol: Heavy use Occupation: Goes through [employer] Living situation: Lives with sister and her Patient restarted on his previously tolerated medication including BuSpar and Lexapro. He tolerated the medication without any problems and did not report any side effects. He had gradual improvements of his symptoms of depression andpsychosis with time. He started to show improvement and was calm overall. He socialized with peers and attended groups. He did not exhibit any behavior concerning for suicidality. He did not have any conflict with peers or staff. On the day of discharge he reported that he is feeling better. He denied any depression or suicidality. He was comfortable with plan of discharge. He was aprobate hold and police were informed. Time spent discussing smoking cessation with patient: 3 to 10 minutes Condition Condition at Discharge: Stable Status at Discharge Cognitive/behavioral status at discharge: Mental Status Exam: Appearance: grossly normal Mental Status: mental status grossly normal Mood: Euthymic mood Affect: Normal affect Speech and Movement: speech and movement normal and speech clear Attitude: cooperative Thought Process: normal Thought Content: Denied hallucinations, no homicidality and no suicidality Insight: Good Judgment: Good Functional status at discharge: independent ambulation Overall status at discharge: patient is back to baseline Time Spent with Patient Time spent providing/coordinating discharge services (# min): 30 Exam Physical Exam Vital Signs: Temp Pulse Resp BP Pulse Ox O2 Del Method 97.6 F 89 18 109/61 96 Room Air 05/28/22 07:30 05/28/22 07:30 05/28/22 07:30 05/28/22 07:30 05/28/22 07:30 05/28/22 07:30 Discharge Plan Discharge Plan Patient Disposition: Law Enforcement/ Detention Activity: No Activity Restriction Diet: Regular Additional Instructions: Regular diet No activity restrictions Instructions: Schizoaffective Disorder (DC), [facility] [place] Instructions Prescriptions: New clindamycin HCl 300 mg Capsule 300 mg PO BID 3 Days Qty: 6 0RF buspirone 10 mg Tablet 10 mg PO BID 30 Days Qty: 60 0RF nicotine 21 mg/24 hr Patch 24 Hour 1 ea transdermal DAILY Qty: 30 0RF escitalopram oxalate 10 mg Tablet 10 mg PO QAM 30 Days Qty: 30 0RF Continued trazodone 150 mg tablet 150 mg PO QHS PRN (Reason: Insomnia) Discontinued buspirone 15 mg Tablet 15 mg PO BID 30 Days Qty: 60 0RF escitalopram oxalate 20 mg Tablet 20 mg PO QAM 30 Days Qty: 30 0RF Vivitrol 380 mg Suspension,Extended Rel Recon 380 mg IM Q28D Qty: 1 0RF Rx Instructions: Due on or around 03/14/22 Follow Up: [facility] [Outside] - 06/04/22 3:45 pm (Nurse: Friday06/04/22 @ 3:45pm with Phani for Long Acting Injection. Psychiatry: Friday06/25/22 3:20pm with kimmie Sánchez CNP) [facility] [Outside] - 05/29/22 1:30 pm (Case Management: Friday05/29/22 @ 1:30pm you will receive a call from Nani. Therapy: Friday06/05/22 @ 2:00pm with Queenie) Discharge Orders: Discharge Order (Routine); Ordered 05/28/22 Ordered By: Jens Neal Documented By: Jens Neal MD 05/28/22 1246 Signed By: <Electronically signed by Jens Neal MD> 05/28/22 2540 [facility] Work Phone: 1(267) 143-280410-03-2022 Progress note Author Jens Neal [facility] May 27, 2022 2:10pm Note Date/Time May 27, 2022 2: 10pm [facility] EN[facility] [address] [place] [address] Psychiatry Progress Note Signed Patient: Meeta Caraballo MR#: [id number] : 1995 Acct:[id number] Age/Sex: 27 / M Adm Date: 2 Loc: Room: [address] [place] [address] Type : ADM IN Attending Dr: Maddie Chester MD Copies to: ~ Date of Service: 05/27/2022 Subjective Subjective Narrative: Patient reports he is doing good today. He is more talkative, and says he has been going to group sessions. He slept okay, waking up a few times. He has been eating well. He is feeling significant anxiety about his probation officerknowing that he is here. He is concerned about going to care home. When I mentionedrehab instead of care home he got upset. He feels he does not need rehab to control his alcohol tendencies. He does admit that his sister is in charge of his finances, and when he does get his debit card he goes to [employer] to take money off the card to buy alcohol. He is not sure if his sister will take him back home. 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 Denies suicidality, homicidality. Denies visual or auditory hallucinations. Mental status exam: Mental Status: mental status grossly normal Mood: Normal mood Affect: Appropriate affect Speech and Movement: Speech and movement normal and speech clear Attitude: cooperative Thought Process: Normal Thought Content: Denied hallucinations, no homicidality, no suicidality Insight: Poor, believes he does not have a problem Judgment: Poor Impulse control: Fair Patient was personally seen by me on the day of the encounter. I reviewed the history and performed the callahan elements of the physical examination. I formulated the plan of care and confirmed this with the medical student as notedbelow. Exam Physical Exam Vital Signs: Temp Pulse Resp BP Pulse Ox O2 Del Method 97.8 F 85 16 121/67 96 Room Air 05/27/22 07:30 05/27/22 07:30 05/26/22 19:36 05/27/22 07:30 05/27/22 07:30 05/27/22 07:30 Assessment/Plan Assessment/Plan (1) Schizoaffective disorder: Code(s): F25.9 - Schizoaffective disorder, unspecified Status: Acute (2) Alcohol use disorder: Status: Acute Plan Doing better at this time. Was told that he was a hold for probation Plan for discharge tomorrow or Friday States he is on 150 mg of trazodone at home, and would like to increase from his50 mg here Continue Lexapro and Invega Requip 0.5 mg at bedtime to help with restless legs which may be due to medication. Benadryl to help with throat and clindamycin for infected tooth. Continue to monitor mental status Encourage group participation and medication compliance Risk benefits alternatives explained Documented By: Jens Neal MD 05/27/22 0943 Signed By: <Electronically signed by Jens Neal MD> 05/27/22 [facility] Work Phone: 1(489) 257-674510-02-2022 Progress note Author Endy hernandez [facility] May 26, 2022 10:09am Note Date/Time May 26, 2022 10 :08am [facility] [address] [place] [address] Psychiatry Progress Note Signed Patient: Meeta Caraballo MR#: [id number] : 1995 Acct:[id number] Age/Sex: 27 / M Adm Date: 2 Loc: 1S Room: [address] [place] [address] Type : ADM IN Attending Dr: Maddie Chester MD Copies to: ~ Date of Service: 05/26/2022 Subjective Subjective Narrative: Yvon Caraballo (Donald) is a 27-year-old male with a past history of schizoaffective disorder reports feeling ok today. He has been withdrawn inside his room. Does not come out to most groups. He said he was active on unit last night going to groups and? interacting with peers. Pt says he feels better than when he came into unit. Pt states his only complaint is tooth pain which is improving compared to time of admission. Per case consultant,Spoke with Nani HOYT, she will speak with pts parole? officer to see if they can get court ordered rehab as pt is frequently drinking, He was taken off vivitrol due to concern for his liver since he was still drinking. Mental Status: mental status grossly normal Mood: depressed mood Affect: constricted affect Speech and Movement: speech and movement normal and speech clear Attitude: Withdrawn Thought Process: normal Thought Content: Denied hallucinations, no homicidality and no suicidality Insight: limited Judgment: limited Exam Physical Exam Vital Signs: Temp Pulse Resp BP Pulse Ox O2 Del Method 98.0 F 74 16 148/80 H 98 Room Air 05/26/22 07:30 05/26/22 07:30 05/26/22 07:30 05/26/22 07:30 05/26/22 07:30 05/26/22 07:30 Assessment/Plan Assessment/Plan (1) Schizoaffective disorder: Code(s): F25.9 - Schizoaffective disorder, unspecified Status: Acute (2) Alcohol use disorder: Status: Acute Plan Patient denied suicidal thought but appears withdrawn most of the time inside his room. Continue Lexapro and Invega Requip 0.5 mg at bedtime to help with restless legs which may be due to medication. Benadryl to help with throat and clindamycin for infected tooth. Continue to monitor mental status Encourage group participation and medication compliance Risk benefits alternatives explained Documented By: Endy Chester MD 2 1008 Signed By: <Electronically signed by Endy Chester MD> 05/26/22 1009 [facility] Work Phone: 1(666) 904-997410-01-2022 Progress note Author Endy hernandez [facility] May 25, 2022 10:00am Note Date/Time May 25, 2022 10 :00am [facility] [address] [place] [address] Psychiatry Progress Note Signed Patient: Meeta Caraballo MR#: [id number] : 1995 Acct:[id number] Age/Sex: 27 / M Adm Date: 2 Loc: Room: [address] [place] [address] Type : ADM IN Attending Dr: Maddie Chester MD Copies to: ~ Date of Service: 05/25/2022 Subjective Subjective Narrative: Yvon Caraballo (Donald) is a 27-year-old male with a past history of schizoaffective disorder reports feeling ok today. He continues to speak in short one-word answers. He said he is starting to go to groups. He denied any meds related sideeffects. Staff reports he continues to be withdrawn most of the time inside hisroom. Per case consultant,Spoke with Nani HOYT, she will speak with pts parole? officer to see if they can get court ordered rehab as pt is frequently drinking, He was taken off vivitrol due to concern for his liver since he was still drinking. Mental Status: mental status grossly normal Mood: depressed mood Affect: constricted affect Speech and Movement: speech and movement normal and speech clear Attitude: Withdrawn Thought Process: normal Thought Content: Denied hallucinations, no homicidality and no suicidality Insight: limited Judgment: limited Exam Physical Exam Vital Signs: Temp Pulse Resp BP Pulse Ox O2 Del Method 98 F 91 H 18 121/69 97 Room Air 05/25/22 07:30 05/25/22 07:30 05/25/22 07:30 05/25/22 07:30 05/25/22 07:30 05/25/22 07:30 Assessment/Plan Assessment/Plan (1) Schizoaffective disorder: Code(s): F25.9 - Schizoaffective disorder, unspecified Status: Acute (2) Alcohol use disorder: Status: Acute Plan Patient denied suicidal thought but appears withdrawn most of the time inside his room. Continue Lexapro and Invega Requip 0.5 mg at bedtime to help with restless legs which may be due to medication. Benadryl to help with throat and clindamycin for infected tooth. Continue to monitor mental status Encourage group participation and medication compliance Risk benefits alternatives explained Documented By: Endy Chester MD 2 [id number] Signed By: <Electronically signed by Endy Chester MD> 05/25/22 1000 [facility] Work Phone: 1(713) 899-824509-30-2022 Progress note Author Endy hernandez [facility] May 24, 2022 10:26am Note Date/Time May 24, 2022 10:26am [facility] EN[facility] [address] [place] [address] Psychiatry Progress Note Signed Patient: Meeta Caraballo MR#: [id number] : 1995 Acct:[id number] Age/Sex: 27 / M Adm Date: 2 Loc: Room: [address] [place] [address] Type : ADM IN Attending Dr: Maddie Chester MD Copies to: ~ Date of Service: 05/24/2022 Subjective Subjective Narrative: Yvon Caraballo (Donald) is a 27-year-old male with a past history of schizoaffective disorder presenting after suicidal ideation Patient reports to be doing okay . He continues to speak in short one-word answers. He says his headache is better, and he is not experiencing withdrawal symptoms. He does complain about his throat being swollen since last week, and he believes this is why he slept poorly last night. Patient was personally seen by me on the day of the encounter. I reviewed the history and performed the callahan elements of the assessment. I formulated the planof care and confirmed this with the medical student as noted below Patient said his anxiety is better but worried about infected tooth. We discussed utilizing Benadryl for swelling and clindamycin for infected tooth. Hestates he ate well yesterday. He has been going to group sessions. He believesthe medications are working. Depression 1, anxiety 1. Denies suicidality, homicidality. Denies visual or auditory hallucinations. Mental Status: mental status grossly normal Mood: depressed mood Affect: constricted affect Speech and Movement: speech and movement normal and speech clear Attitude: cooperative Thought Process: normal Thought Content: Denied hallucinations, no homicidality and no suicidality Insight: limited Judgment: limited Exam Physical Exam Vital Signs: Temp Pulse Resp BP Pulse Ox O2 Del Method 97.6 F 64 16 156/108 H 97 Room Air 05/23/22 23:24 05/23/22 23:24 05/23/22 23:24 05/23/22 23:24 05/23/22 23:24 05/23/22 23:24 Objective Labs Labs: Abnormal Labs 05/23/22 06:36 Cholesterol 116 L Assessment/Plan Assessment/Plan (1) Schizoaffective disorder: Code(s): F25.9 - Schizoaffective disorder, unspecified Status: Acute (2) Alcohol use disorder: Status: Acute Plan Continue Lexapro and Invega Requip 0.5 mg at bedtime to help with restless legs which may be due to medication. We will offer naltrexone and consider Vivitrol. Benadryl to help with throat and clindamycin for infected tooth. Continue to monitor mental status Encourage group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
[2025-03-30 23:00] VITALS: BP 140/85; PULSE 72; TEMP 36.6; O2SAT 98; BMI 25.1
--- NOTE | 2025-03-30 23:23 | XR_ITS ---
The [address] [address] Patient Name: MEETA CARABALLO MRN: [id number] date: 1995 Sex: M Assigned Patient Location: ER Current Patient Location: ED.MAIN Accession/Order Number: [id number] Exam Date: 03/30/2025 23:51 Report Date: 03/30/2025 23:52 At the request of: JAGDEEP SEQUEIRA MD Procedure: XR foot RT min 3V RIGHT FOOT - 3 views CLINICAL HISTORY: injury COMPARISON: None FINDINGS: No fracture or dislocation. Joint spaces preserved. Soft tissues unremarkable. XR/XR foot RT min 3V IMPRESSION: NO ACUTE OSSEOUS FINDINGS. Impression dictated by: Manolo Marin M.D. 03/30/2025 11:52 PM Dictation Location: [place] [address] Electronically authenticated by: [id number] Y Date: 03/30/2025 23:52
--- NOTE | 2025-03-30 23:33 | ED.LOWEXI1 ---
HPI HPI - Extremity Injury (Lower) General Chief Complaint: Extremity Injury, Lower Stated Complaint: Extremity Injury, Lower Time Seen by Provider: 03/30/25 23:16 Source: patient Mode of arrival: Wheelchair History of Present Illness HPI Narrative: states he became upset and kicked the wall with his right foot just [employer]. Presents complaining of pain of his right foot . no weakness or numbness. Denies pain of the right ankle Related Data Home Medications ?Medication ?Instructions ?Recorded ?Confirmed paliperidone palmitate 234 mg/1.5 234 mg IM Q30D 05/17/23 03/30/25 mL intramuscular syringe (Invega Sustenna) fluvoxamine 25 mg tablet 25 mg PO DAILY 01/14/24 01/14/24 Allergies Allergy/AdvReac Type Severity Reaction Status Date / Time No Known Drug Allergies Allergy Verified 03/30/25 23:06 Opioid HPI Opioid Management Most Recent Pain and Opioid Data: Last Pain Scale 8 03/30/25, 23:00 Ur Phencyclidine Scrn, (NEGATIVE) Negative 02/15/23, 18:35 Review of Systems ROS Status of ROS 10 or more systems reviewed and unremarkable except as noted in history and below [facility] Social History Smoking status: Current every day smoker Little interest or pleasure in doing things: not at all Feeling down, depressed, or hopeless: not at all Exam Constitutional Vital Signs, click to edit/add: Last Vital Signs Temp 97.8 F 03/30/25 23:00 Pulse 72 03/30/25 23:00 Resp 16 03/30/25 23:00 BP 140/85 03/30/25 23:00 Pulse Ox 98 03/30/25 23:00 O2 Del Method Room Air 03/30/25 23:00 Common normals: no apparent distress, average body habitus, oriented x3, no limitations, healthy appearing, alert and well nourished [facility] Common normals: normocephalic and head/scalp atraumatic Eye Common normals: EOMs intact bilaterally and conjunctivae normal Respiratory Common normals: normal respiratory effort, no retractions, no use of accessory muscles and clear to auscultation bilaterally Cardio Common normals: regular rate, regular rhythm, S1 normal heart sound and S2 normal heart sound Extremity Other: tenderness distal 1/2 right foot. no obvious deformity. no discoloration Neuro Common normals: oriented x3, CN's II-XII intact bilaterally, moves all extremities and no focal motor deficits Psych Appearance: grossly normal Course Vital Signs Vital signs: Vital Signs Temperature 97.8 F 03/30/25 23:00 Pulse Rate 72 03/30/25 23:00 Respiratory Rate 16 03/30/25 23:00 Blood Pressure 140/85 03/30/25 23:00 Pulse Oximetry 98 03/30/25 23:00 Oxygen Delivery Method Room Air 03/30/25 23:00 Temperature 97.8 F 03/30/25 23:00 Pulse Rate 72 03/30/25 23:00 Respiratory Rate 16 03/30/25 23:00 Blood Pressure 140/85 03/30/25 23:00 Pulse Oximetry 98 03/30/25 23:00 Oxygen Delivery Method Room Air 03/30/25 23:00 MDM - Extremity Injury (Lower) MDM Narrative Medical decision making narrative: patient injured his right foot when he became upset at the dog and kicked the wall. no obvious deformity but distal 1/2 dresser tender. xray neg. patient provided with ortho shoe and discharged home Discharge Plan Discharge Chief Complaint: Extremity Injury, Lower Clinical Impression: Contusion of foot, right Patient Disposition: Home, Self-Care Prescriptions / Home Meds: No Action Invega Sustenna 234 mg/1.5 mL syringe 234 mg IM Q30D fluvoxamine 25 mg tablet 25 mg PO DAILY Print Language: Greek Instructions: Foot Contusion (ED) Additional Instructions: use motrin or similar for pain Referrals: Physician,Non-Staff, MD [Primary Care Provider] - 1 week
== END 2025-03-31 00:24 | disposition home or self-care (01) ==
PROVIDERS: Emergency Provider Internal Medicine
DX: S90.31XA Contusion of right foot, initial encounter (principal); W22.09XA Striking against other stationary object, initial encounter
CPT/HCPCS: 73630; 99283

== ENCOUNTER 2025-05-02 09:29 | Outpatient (OUT) | payer OTHER, SELFPAY ==
--- OUTSIDE RECORDS SUMMARY | 2025-05-02 09:38 | XMS_ITS | CCD ---
Author Organization [facility] Inform ion Partnership [facility] Care Team Providers Care Pipe Insulator Helper Name Role Phone BERTO BOWDEN Unavailable Unavailable SABINA LEWIS Unavailable Unavailable SABINA LEWIS Unavailable Unavailable NO FAMILY, PHYSICIAN Primary Care Provider Unava ilable MD Maddie Chester Admit Provider [phone] MD Maddie Chester Attending Provider SILVERIO Mccurdy Other Provider Unavailable SILVERIO Jones Other Provider Unavailable SILVERIO Mcallister Other Provider Unavailable SILVERIO Talobt Other Provider Unavailable SILVERIO Bustillo Other Provider Unavailable SILVERIO Chun Other Provider Unavailable SILVERIO Oliva Other Provider Unavailable MD Agnieszka Gorman Other Provider MD Martin Lobato Other Provider DALY Holliday Other Provider DO Janusz Granados Other Provider [phone] MD Elias Frances Other Provider DO Joseph Rao Other Provider MD Jhonathan Zarco Other Provider [phone] MD Cintia Ornelas Other Provider Johana, ANP-BC Wendy Other Provider MD Larry Bedoya Other Provider [phone] MD Philippe Dowling Other Provider MD Carol Grant Other Provider MD Darius Diop Other Provider DO Angel Mast Other Provider Unavailable MD Brandon Alford Other Provider MD Mel Torres Other Provider MD Suzan Bustamante Other Provider MD Selvin Jerome Other Provider Alyssa, CAMPUS WELLNESS COORDINATOR-C Yvonne Castaneda Other Provider MD Steffen Antonio [...] Care Provider UnavailMD Maddie Artis Admit Provider MD Maddie Chester Attending Provider Unavailable Primary Care Provider Unavailjitendra e MIKHAIL GIBBS Primary Care Physician CHEVY JOY Primary Care Physician PROVIDER, UNKNOWN [...] Attending Unavailable JOSELYN CASTELLANO Primary Care Physician [phone] Donavan Rene Attending Unavailable Donavan Rene. Attending Unavailable Donavan Rene Attending Unavailable Donavan Rene Referring Unavailable Donavan Rene Admitting Unavailable Donavan Rene Attending Unavailable Donavan Rene Attending Unavailable Donavan Rene Attending Unavailable Endy Chester Attending Unavailab Endy Hooker Admitting Unavailab le NON STAFF Primary Care Unavailable Allergies Allergy Classification Reported Allergen(s) Allergy Type Date of Onset Reaction(s) Facility (1 source) traMADol; Translations: [traMADol] Drug Allergy [facility] Repository Medications Current Medications Medication Drug Class(es) [...] Daily, # 90 tab(s), Refills(s) 4, Pharmacy: [facility][id number], 178, cm, 01/12/24 8:50:00 EDT, Height/Length [...] day, # 14 tab(s), Refills(s) 0, Pharmacy: [facility]/pharm[facility] #[id number], 178, cm, 07/18/20 11:50:00 EST, Height/Length [...] choosing us for your care. Normal [facility] Gastroenterology Office/Clin ic Noteon 05-10-2024 Gastroenterology Office/Clinic [...] and he takes Imodium bottle every day [place] food bothers him . milk and ice [...] EGD - (more content not included)... [facility] Comment on above: Result Comment: Elec tronically Signed By: Edgard WILD, Donavan Cates\.br\Date and Time Signed: 05/10/24 13:57 EDT Provider Letteron 01-27-2024 Provider Letter (Inserted Image. Rosemarie ble to display) January 27, 2024 MEETA CARABALLO [address] [place] [id number] : 1995 Dear Meeta , We have been trying to reach you with no success. It is important that you return our call regarding your EGD upon receiving this letter. Also, at the time of your call, please provide us with your current information. Thank you for your prompt attention to this matter. Sincerely, [facility] Result Letter Officeon 01-19 Result Letter Office (Inserted Image. Un able to display) January 20, 2024 MEETA CARABALLO [address] [place] [id number] : 1995 Below is a summary of [...] for follow up regarding your recent EGD. [facility] [phone] [facility] IntraOperative Documentson 0 01-16-2024 IntraOperative Documents [id number] IFF [facility] Postoperative Documentson Postoperative Documents [id number]#1.00T IFF [facility] Consenton 01-13-2024 Consent [id number]#1.00TIF F [facility] Discharge Instructionson Discharge Instructions [id number] F [facility] Main OR Intraoperative Recor shari 01-13-2024 Main OR Intraoperative Record IntraOp Document Type FT Summary Primary Physician: Donavan Rene MD Finalized Date/Time: 01/13/24 11:48:18 Pt. Name: MEETA CARABALLO Fransisco Becker/Sex: 1995 Male Med Rec #: [id number] Physician: Donavan Rene MD Financial #: [id number] Pt. Type: O Room/Bed: / Admit/Disch: 01/12/24 [...] Attendee Puneet HENAO, Oscar Botello, Sidney Rowland VEHICLE BODY BUILDER, Daphnie Machado Role Performed Anesthesiologist Staff - Other Scrub - Primary Lamp Tester And Inspector Time In 01/12/24 09:57:00 01/12/24 09:57:00 01/12/24 [...] Marte RN Role Performed Surgeon - Primary Apprentice Jockey - Primary Time In 01/12/24 09:57:00 01/12/24 [...] Given Participants Rosmery Herrmann Micala E, Kashif VEHICLE BODY BUILDER, Edgard Gill MD, Mohamad A., Dottie Ayala [...] and tissue Entry 1 Skin Integrity Intact, [place], Warm, and Skin Abnormality No Dry Outcomes Met? Yes Last Modified By: Dottie Ayala RN 01/12/24 10:09:40 Post-Care Text: The patient is free from signs and symptoms of injury caused by extraneous objects Patient Positioning FT Pre-Care Text: Identifies physical alterations that require additional precautions for procedure (more content not included)... [facility] Colonoscopy Procedure Report on 01-12-2024 Colonoscopy Procedure Report Patient: MEETA CARABALLO Age: 28 years Sex: Male : 1995 Associated Diagnoses: None Author: Donavan Rene MD Pre-Procedure Procedure Date 01/12/2024 10:16:00 . Procedure Type: Colonoscopy with biopsy. Procedure provider Performed by Donavan Rene MD. Current history and physical Documented on chart. Denies.. Past Medical History Active ADD - Attention deficit disorder (103253966) ADHD - Attention deficit disorder with hyperactivity (9401240306) Resolved IBS - Irritable bowel syndrome (9899105604): Resolved.. Family History No family history items [...] day, # 14 tab(s), Refills(s) 0, Pharmacy: [facility] #[id number], 178, cm, 07/18/20 11:50:00 EST, Height/Length [...] 3. Normal TI Images Procedure images: Rec1_hd_video_ [id number].jpg Rec1_hd_video_ [id number].jpg Rec1_hd_video_ [id number].jpg Rec1_hd_video_ [id number].jpg Rec1_hd_video_ [id number]_36_[id number].jpg Rec1_hd_video_ [id number]_854.jpg Rec1_hd_video_ [id number].jpg Rec1_hd_video_ J80_[id number].jpg Rec1_hd_video_ E84_39_[id number].jpg Rec1_hd_video_ [id number]_40_[id number].jpg . Post-Procedure Complications: none. Estimated blood loss: none. Specimens: none. Devices/ implants: none left in place. Impression and Plan Poor prep Internal hemorrhoids Recommendations: Repeat colonoscopy:: At the age of 43 . Follow-up:: in clinic as scheduled. Diet:: Previous. Medication resumption:: Continue current medications, Avoid NSAIDs. Return to activities:: After 24 hours. Education and Follow-up: Counseled: Patient, Family. [facility] Comment on above: Other Comment: Deann cowan Attachment - attachment storage system not supported [id number] Can be viewed in source systemMissing Attachment - attachment storage system not supported [id number] Can be viewed in source systemMissing Attachment - attachment storage system not supported 3322093 Can be viewed in source systemMissing Attachment - attachment storage system not supported 6367551 Can be viewed in source systemMissing Attachment - attachment storage system not supported 9528145 Can be viewed in source systemMissing Attachment - attachment storage system not supported 5477865 Can be viewed in source systemMissing Attachment - attachment storage system not supported 0266178 Can be viewed in source systemMissing Attachment - attachment storage system not supported 4312165 Can be viewed in source systemMissing Attachment - attachment storage system not supported 3527745 Can be viewed in source systemMissing Attachment - attachment storage system not supported 2895704 Can be viewed in source system Consent for Treatmenton 12-24 Consent for Treatment [id number] F [facility] Discharge Instructionson Discharge Instructions MEETA CARABALLO :1995 [...] biopsy results Call for any problems. Where: [facility] [address], [address] [place] [phone] Medications What How Much When Instructions Next Dose New pantoprazole (Protonix 40 mg Tab-DR) 1 Tablets By Mouth Every day Refills: 4 Pickup at [facility]pharm[facility] #[id number] Unchanged busPIRone By Mouth Every day [...] Once a day (at bedtime) Pharmacy Information [facility]/pharmacy #[id number]: [address], [place] [phone] Allergies No Known Allergies Problems Ongoing - [...] paper. FOLL (more content not included)... [facility] Comment on above: Result Comment: Elec tronically Signed By: Sydney Mason RN\.pk\Date and Time Signed: 01/12/24 10:41 EDT Praful [...] day, # 14 tab(s), Refills(s) 0, Pharmacy: [facility]pharm[facility] #[id number], 178, cm, 07/18/20 11:50:00 EST, Height/Length [...] bulb. Biopsies obtained Images Procedure images: Rec1_hd_video_ [id number].jpg Rec1_hd_video_ [id number]_87_[id number]_782.jpg Rec1_hd_video_ [id number]_504.jpg Rec1_hd_video_ [id number].jpg Rec1_hd_video_ J32_87_[id number]_877.jpg Rec1_hd_video_ K86_44_[id number]_096.jpg Rec1_hd_video_ [id number]_34_[id number].jpg . Post-Procedure Complications: none. Estimated blood loss: minimal. Specimens: sent to pathology. Devices/ implants: none left in place. Impression and Plan esophagitis Gastropathy Duodenitis Recommendations: -Resume previous diet -Resume home medications -Avoid NSAIDs -*Protonix 40 mg daily -Await pathology results, follow in GI clinic in 1-2 after discharge [facility] Comment on above: Other Comment: Deann cowan Attachment - attachment storage system not supported [id number] Can be viewed in source system Missing Attachment - attachment storage system not supported 8052038 Can be viewed in source system Missing Attachment - attachment storage system not supported 4190098 Can be viewed in source system Missing Attachment - attachment storage system not supported 6534065 Can be viewed in source system Missing Attachment - attachment storage system not supported 4017587 Can be viewed in source system Missing Attachment - attachment storage system not supported 1716820 Can be viewed in source system Missing Attachment - attachment storage system not supported 9326854 Can be viewed in source system Inpatient Patient Summaryon 01-12-2024 Inpatient Patient Summary [address] [address] [facility] Clinical Discharge Instructions PERSON INFORMATION Name: MEETA CARABALLO PHYSICIANS Admitting Physician: Donavan Rene MD Attending Physician: Donavan Rene MD PCP: JOSELYN CASTELLANO CNP Discharge Diagnosis: Comment: PATIENT EDUCATION INFORMATION Instructions: Colonoscopy, Care After Surgery [facility] (CUSTOM); Endoscopy, Care After Procedure [facility] (CUSTOM); Esophagitis; Duodenitis Medication Leaflets: Follow up: With: Address: When: Edgard WILD, Donavan Cates, [address], [address] [place] [phone] Comments: Office will call to schedule follow up appointment and/or review any pending biopsy results Call for any problems. MEDICATION LIST New Medications [id number], [address], [place] [phone], [phone] pantoprazole (Protonix 40 mg Tab-DR) 1 Tablets [...] once a day (at bedtime). Comment: [facility] Main OR PACU I Recordon 12-24 Main OR PACU I Record PACU Phase I Docum ent Type FT Summary Primary Physician: Donavan Rene MD Finalized Date/Time: 01/12/24 12:32:59 Pt. Name: MEETA CARABALLO Fransisco Becker/Sex: 1995 Male Med Rec #: [id number] Physician: Donavan Rene MD Financial #: [id number] Pt. Type: O Room/Bed: / Admit/Disch: 01/12/24 [...] By: Sydney Mason RN 01/12/24 12:32 [facility] Main OR Preoperative Recordo n 01-12-2024 Main OR Preoperative Record Holding Area Document Type FT Summary Primary Physician: Donavan Rene MD Finalized Date/Time: 01/12/24 09:01:50 Pt. Name: MEETA CARABALLO/Sex: 1995 Male Med Rec #: [id number] Physician: Donavan Rene MD Financial #: [id number] Pt. Type: O Room/Bed: / Admit/Disch: 01/12/24 [...] and remained NPO since/SILVERIO LOWRY Finalized By: aDwn Liang RN Document Signatures Signed By: Dawn Liang RN 01/12/24 09:01 [facility] Monitor Recordon 01-12-2024 Monitor Record [id number]#1.00TI FF [facility] Monitor Record [id number]#1.00TI FF [facility] Outpatient Surgery Discharge Instructionon 01-12-2024 Outpatient Surgery Discharge Instruction [place] [address] Patient Discharge Instructions PERSON INFORMATION Name: MEETA [...] With: Address: When: Edgard WILD, LAVELLE Billingsley, [address], [address] [place] [phone] Comments: Office will call to schedule follow up appointment and/or review any pending biopsy results Call for any problems. Pharmacy Information: You may receive a survey from [employer] asking you to rate your care experience. Your feedback is important and will help us understand what we do well and how we can improve the quality of care we provide to you, your loved ones and our community. It?s an honor to serve you. Thank you for choosing [facility] HERE ARE THE MEDICATION CHANGES THAT OCCURRED DURING YOUR HOSPITAL STAY New Medications [id number], [address], [place] [phone], [phone] pantoprazole (Protonix 40 mg Tab-DR) 1 Tablets [...] Care After (more content not included)... [facility] Patient Education - Texton 0 01-12-2024 Patient [...] Document Re-Released: 02/02/2007 ExitCare? Patient Information ?2009 [employer]. Gastroenterology Esophagitis Esophagitis is inflammation of the [...] and scleroderm (more content not included)... [facility] Progress Note-Nurseon 2023 Progress Note-Nurse Zofran 4 mg IV given per Montez HENAO for pt c/o nausea [facility] Progress Note-Physicianon Progress Note-Physician Patient: DO CHANA [...] Daily, # 90 tab(s), Refills(s) 4, Pharmacy: [facility] #6177, 178, cm, 01/12/24 8:50:00 EDT, Height/Length Dosing, 80, kg, 01/12/24 8:50:00 EDT, Weight Dosing naproxen 500 mg Tab: 500 mg = 1 tab(s), Oral, BID, Take one tab by mouth two times a day, # 14 tab(s), Refills(s) 0, Pharmacy: [facility]pharm[facility] #6173, 178, cm, 07/18/20 11:50:00 EST, Height/Length [...] - Attention deficit disorder / SNOMED CT 472089743 / Confirmed ADHD - Attention deficit disorder with hyperactivity / SNOMED CT 6537730500 / Confirmed Bloating / SNOMED CT 060206332 / Confirmed Chronic diarrhea / SNOMED CT 589301847 / Confirmed Chronic hepatitis / SNOMED CT 094921397 / Confirmed Dairy product intolerance / SNOMED CT 0543952224 / Confirmed Fatty food intolerance / SNOMED CT 2586535438 / Confirmed Frequent urination / SNOMED CT 163190948 / Confirmed HCV (hepatitis C virus) / SNOMED CT 04591537 / Confirmed History of drug abuse / SNOMED CT 6752840308 / Confirmed Smoker / SNOMED CT Y886UY1A-1134-84G8-4536- [id number] / Confirmed Added secondary to documentation in Social History. Resolved: IBS - Irritable bowel syndrome / SNOMED CT 0913673463 Physical Examination Vital Signs 01/12/2024 10:34 EDT [...] Diastolic Bloo (more content not included)... [facility] Comment on above: Result Comment: Elec tronically [...] day, # 14 tab(s), Refills(s) 0, Pharmacy: [facility], 178, cm, 07/18/20 11:50:00 EST, Height/Length [...] - Attention deficit disorder / SNOMED CT 521689699 / Confirmed ADHD - Attention deficit disorder with hyperactivity / SNOMED CT 3399990530 / Confirmed Bloating / SNOMED CT 461142509 / Confirmed Chronic diarrhea / SNOMED CT 409409264 / Confirmed Chronic hepatitis / SNOMED CT 100478803 / Confirmed Dairy product intolerance / SNOMED CT 1197465970 / Confirmed Fatty food intolerance / SNOMED CT 3355333687 / Confirmed Frequent urination / SNOMED CT 288885041 / Confirmed HCV (hepatitis C virus) / SNOMED CT 17760308 / Confirmed History of drug abuse / SNOMED CT 0512177654 / Confirmed Smoker / SNOMED CT J888MF1Y-9556-39J2-6509- [id number] / Confirmed Added secondary to documentation in Social History. Resolved: IBS - Irritable bowel syndrome / SNOMED CT 8040406441, Active Problems (11) ADD - Attention deficit disorder ADHD - Attention deficit disorder with hyperactivity Bloating Chronic diarrhea Chronic hepatitis Dairy product intolerance Fatty food intolerance Frequent urination HCV (hepatitis C virus) History of drug abuse Smoker Histories Past Medical History: Active ADD - Attention deficit disorder (245023499) ADHD - Attention deficit disorder with hyperactivity (2145554310) Resolved IBS - Irritable bowel syndrome (4952315373): Resolved. Family History: No family history items [...] Use: Current Co (more content not included)... [facility] Comment on above: Result Comment: Elec tronically Signed By: Everton Chiu DO\.br\Date and Time Signed: 01/12/24 09:01 EDT Consent for Procedure/Surger yon 01-09-2024 Consent for Procedure/Surgery [id number] FF [facility] Ambulatory Visit Summaryon 0 01-07-2024 Ambulatory Visit [...] Chronic diarrhea Invalid Interpretation Code Umbilical hernia [facility] Gastroenterology Office/Clin ic Noteon 01-07-2024 Gastroenterology Office/Clinic [...] and he takes Imodium bottle every day [place] food bothers him . milk and ice [...] Panel by (more content not included)... [facility] Comment on above: Result Comment: Elec tronically Signed By: Edgard WILD, Donavan Cates\.br\Date and Time Signed: 01/07/24 14:13 EDT CBC AUTO DIFFon 11-06-2022 BASO # 0.1 103/ul Normal 0.0-0.1 [facility] Comment on above: Performed By: #### C MP #### [facility] [address] [place] [address] [address] Alfie Mcnulty Basophils/100 WBC (Bld) 0.3 % Normal 0.2-2.0 [facility] Comment on above: Performed By: #### C MP #### [facility] [address] [place] [address] [address] Alfie Mcnulty EO # 0.0 103/ul Normal 0.0-0.7 [facility] Comment on above: Performed By: #### C MP #### [facility] [address] [address] [address] Alfie Mcnulty Eosinophils/100 WBC (Bld) 0.0 % Critically low 0.9-7.0 [facility] Comment on above: Performed By: #### C MP #### [facility] [address] [address] [address] Alfie Mcnulty Erythrocyte distribution width (RBC) [Ratio] 11.9 % Normal 11.0-15.0 [facility] Comment on above: Performed By: #### C MP #### [facility] [address] [place] [address] Dr. Alfie Mcnulty Hematocrit (Bld) [Volume fraction] 44.9 % Normal 42.0-54.0 [facility] Comment on above: Performed By: #### C MP #### [facility] [address] [place] [address] Dr. Alfie Mcnulty Hemoglobin (Bld) [Mass/Vol] 16.2 g/dL Normal 14.0-18.0 [facility] Comment on above: Performed By: #### C MP #### [facility] [address] [place] [address] [address] Alfie Mcnulty IG # 0.11 10e3/ul Critically high 0.00-0.03 [facility] Comment on above: Performed By: #### C MP #### [facility] [address] [place] [address] [address] Alfie Mcnulty IG % 0.6 % Critically high 0.0-0.5 [facility] Comment on above: Performed By: #### C MP #### [facility] [address] [place] [address] [address] Alfie Mcnulty LYMPH # 0.8 103/ul Critically low 1.2-3.8 [facility] Comment on above: Performed By: #### C MP #### [facility] [address] [address] [address] Alfie Mcnulty Lymphocytes/100 WBC (Bld) 4.4 % Critically low 20.5-60.0 [facility] Comment on above: Performed By: #### C MP #### [facility] [address] [address] [address] Alfie Mcnulty MANUAL DIFF REQ NO Normal [facility] Comment on above: Performed By: #### C MP #### [facility] [address] [address] [address] Alfie Mcnulty MCH (RBC) [Entitic mass] 29.9 pg Normal 25.9-34.0 [facility] Comment on above: Performed By: #### C MP #### [facility] [address] [place] [address] Dr. Alfie Mcnulty MCHC (RBC) [Mass/Vol] 36.1 g/dL Critically high 29.9-35.2 [facility] Comment on above: Performed By: #### C MP #### [facility] [address] [place] [address] Dr. Alfie Mcnulty MCV (RBC) [Entitic vol] 83.0 fL Normal 80.0-94.0 [facility] Comment on above: Performed By: #### C MP #### [facility] [address] [place] [address] Dr. Alfie Mcnulty MONO # 0.9 103/ul Critically high 0.3-0.8 [facility] Comment on above: Performed By: #### C MP #### [facility] [address] [place] [address] Dr. Alfie Mcnulty Monocytes/100 WBC (Bld) 5.0 % Normal 1.7-12.0 [facility] Comment on above: Performed By: #### C MP #### [facility] [address] [place] [address] Dr. Alfie Mcnulty NEUT # 16.8 103/ul Critically high 1.4-6.5 [facility] Comment on above: Performed By: #### C MP #### [facility] [address] [address] [address] Alfie Mcnulty Neutrophils/100 WBC (Bld) 89.7 % Critically high 43.0-75.0 [facility] Comment on above: Performed By: #### C MP #### [facility] [address] [place] [id number] Alfie Mcnulty Platelet mean volume (Bld) [Entitic vol] 9.6 fL Normal 9.5-13.5 [facility] Comment on above: Performed By: #### C MP #### [facility] [address] [place] [id number] Alfie Mcnulty PLT 294 103/ul Normal 150-450 [facility] Comment on above: Performed By: #### C MP #### [facility] [address] [place] [address] [address] Alfie Mcnulty RBC 5.41 106/ul Normal 4.70-6.10 [facility] Comment on above: Performed By: #### C MP #### [facility] [address] [place] [id number] Alfie Mcnulty WBC 18.7 103/ul Critically high 4.0-11.0 [facility] Comment on above: Performed By: #### C MP #### [facility] [address] [place] [address] ABD/PELVIS WO CONon [...] VALENTINO RIBERAH Date: 2022-11-06 17:22 Normal [facility] ER URINE PROFILEon 3 Bilirubin Ql (U) Negative Normal NEGATIVE [facility] Comment on above: Performed By: #### Isi PALOMO UMICRO #### [facility] [address] [place] [address] Dr. Alfie Mcnulty Clarity (U) CLEAR Normal CLEAR [facility] Comment on above: Performed By: #### Isi PALOMO UMICRO #### [facility] [address] [address] [address] Alfie Mcnulty Color (U) DK. ORANGE Abnormal YELLOW [facility] [facility] Comment on above: Performed By: #### Isi PALOMO UMICRO #### [facility] [address] [address] [address] Alfie Mcnulty ERUAHD A micrscopic examina tion will be performed if indicated. Normal [facility] Comment on above: Performed By: #### Isi PALOMO UMICRO #### [facility] [address] [place] [address] Dr. Alfie Mcnulty Glucose Ql (U) Negative Normal NEGATIVE [facility] Comment on above: Performed By: #### LEE MARTINEZ #### [facility] [address] [place] [address] Dr. Alfie Mcnulty Hemoglobin Ql (U) LARGE Abnormal NEGATIVE [facility] Comment on above: Performed By: #### MARLIN MARTINEZRO #### [facility] [address] [place] [address] Dr. Alfie Mcnulty Ketones Ql (U) 15 mg/dl Abnormal NEGATIVE [facility] Comment on above: Performed By: #### MARLIN MARTINEZRO #### [facility] [address] [place] [address] Dr. Alfie Mcnulty LEUKOCYTES Negative Normal NEGATIVE [facility] Comment on above: Performed By: #### MARLIN MARTINEZRO #### [facility] [address] [place] [address] Dr. Alfie Mcnulty Nitrite Ql (U) Negative Normal NEGATIVE [facility] Comment on above: Performed By: #### MARLIN MARTINEZRO #### [facility] [address] [place] [address] Dr. Alfie Mcnulty pH (U) [pH] Abnormal 5-9 [facility] Comment on above: Performed By: #### LEE MARTINEZ #### [facility] [address] [place] [address] Dr. Alfie Mcnulty Protein (U) [Mass/Vol] 100 mg/dL Abnormal NEGAT GREGORIA/ TRACE [facility] Comment on above: Performed By: #### MARLIN MARTINEZRO #### [facility] [address] [place] [address] Dr. Alfie Mcnulty SPEC GRAVITY 1.015 Normal 1.005-<=1. 025 [facility] Comment on above: Performed By: #### MARLIN MARTINEZRO #### [facility] [address] [place] [address] Dr. Alfie Mcnulty UR MICRO IND INDICATED Normal [facility] Comment on above: Performed By: #### LEE MARTINEZ #### [facility] [address] [place] [address] Dr. Alfie Mcnulty Urobilinogen Qn (U) 1.0 {Srinivasa'U}/dL Normal 0.2 - 1. 0 [facility] Comment on above: Performed By: #### E LEE PALOMO #### [facility] [address] [place] [address] Dr. Alfie Mcnulty PROF 14(COMP METB)on 023 Albumin [Mass/Vol] 4.3 g/dL Normal 3.4-5.0 [facility] Comment on above: Performed By: #### C MP #### [facility] [address] [place] [address] Dr. Alfie Mcnulty Albumin/Globulin [Mass ratio] 1.3 {ratio} Normal [facility] Comment on above: Performed By: #### C MP #### [facility] [address] [place] [address] Dr. Alfie Mcnulty ALP [Catalytic activity/Vol] 102 U/L Normal 46-116 [facility] Comment on above: Performed By: #### C MP #### [facility] [address] [place] [address] Dr. Alfie Mcnulty ALT [Catalytic activity/Vol] 69 U/L Critically high 16-63 [facility] Comment on above: Performed By: #### C MP #### [facility] [address] [place] [address] Dr. Alfie Mcnulty Anion gap [Moles/Vol] 9.5 mmol/L Normal [facility] Comment on above: Performed By: #### C MP #### [facility] [address] [place] [address] Dr. Alfie Mcnulty AST [Catalytic activity/Vol] 29 U/L Normal 15-37 [facility] Comment on above: Performed By: #### C MP #### [facility] [address] [place] [address] Dr. Alfie Mcnulty Bilirubin [Mass/Vol] 0.7 mg/dL Normal 0.2-1.0 [facility] Comment on above: Performed By: #### C MP #### [facility] [address] [place] [address] Dr. Alfie Mcnulty Calcium [Mass/Vol] 9.0 mg/dL Normal 8.5-10.1 [facility] Comment on above: Performed By: #### C MP #### [facility] [address] [address] [address] Alfie Mcnulty Chloride [Moles/Vol] 103 mmol/L Normal 98-107 [facility] Comment on above: Performed By: #### C MP #### [facility] [address] [address] [address] Alfie Mcnulty CO2 [Moles/Vol] 29.2 mmol/L Normal 21.0-32.0 [facility] Comment on above: Performed By: #### C MP #### [facility] [address] [place] [address] Dr. Alfie Mcnulty Creatinine [Mass/Vol] 1.23 mg/dL Normal 0.70-1.30 [facility] Comment on above: Performed By: #### C MP #### [facility] [address] [place] [address] Dr. Alfie Mcnulty EGFR-AF BHUTANESE >60 Normal >=60 [facility] Comment on above: Performed By: #### C MP #### [facility] [address] [place] [address] Dr. Alfie Mcnulty EGFR-NON AF BHUTANESE >60 Normal >=60 [facility] Comment on above: Performed By: #### C MP #### [facility] [address] [place] [address] Dr. Alfie Mcnulty Globulin (S) [Mass/Vol] 3.3 g/dL Normal [facility] Comment on above: Performed By: #### C MP #### [facility] [address] [address] [address] Alfie Mcnulty Glucose [Mass/Vol] 150 mg/dL Critically high 74-106 [facility] Comment on above: Performed By: #### C MP #### [facility] [address] [place] [address] Dr. Alfie Mcnulty Potassium [Moles/Vol] 3.7 mmol/L Normal 3.5-5.1 [facility] Comment on above: Performed By: #### C MP #### [facility] [address] [address] [address] Alfie Mcnulty Protein [Mass/Vol] 7.6 g/dL Normal 6.4-8.2 [facility] Comment on above: Performed By: #### C MP #### [facility] [address] [address] [address] Alfie Mcnulty Sodium [Moles/Vol] 138 mmol/L Normal 136-145 [facility] Comment on above: Performed By: #### C MP #### [facility] [address] [address] [address] Alfie Mcnulty Urea nitrogen [Mass/Vol] 12.0 mg/dL Normal 7.0-18.0 [facility] Comment on above: Performed By: #### C MP #### [facility] [address] [place] [address] Dr. Alfie Mcnulty Urea nitrogen/Creatinine [Mass ratio] 9.8 mg/mg Normal [facility] Comment on above: Performed By: #### C MP #### [facility] [address] [address] [address] Alfie Mcnulty URINE MICROSCOPIC ONLYon BACTERIA TRACE Abnormal NONE SEEN [facility] Comment on above: Performed By: #### Isi PALOMO UMICRO #### [facility] [address] [place] [address] Dr. Alfie Mcnulty Bacteria identified Cx Nom (U) NOT INDICATED Normal [facility] Comment on above: Performed By: #### Isi PALOMO UMICRO #### [facility] [address] [place] [address] Dr. Alfie Mcnulty CAST SEEN Abnormal NONE SEEN [facility] Comment on above: Performed By: #### Isi PALOMO UMICRO #### [facility] [address] [place] [address] Dr. Alfie Mcnulty Crystals LM Nom (Urine sed) NONE SEEN Normal NONE SEEN [facility] Comment on above: Performed By: #### Isi PALOMO UMICRO #### [facility] [address] [place] [address] Dr. Alfie Mcnulty Epithelial cells LM Ql (Urine sed) RARE Normal NONE SEEN /RARE [facility] Comment on above: Performed By: #### E RUR, UMICRO #### [facility] [address] [place] [address] Dr. Alfie Mcnulty HYALINE CAST RARE Normal [facility] Comment on above: Performed By: #### E RUR, UMICRO #### [facility] [address] [place] [address] Dr. Alfie Mcnulty MUCOUS TRACE Abnormal NONE SEEN [facility] Comment on above: Performed By: #### E RUR, UMICRO #### [facility] [address] [place] [address] Dr. Alfie Mcnulty RBC 20-50 Abnormal 0-2 [facility] Comment on above: Performed By: #### E RUR, UMICRO #### [facility] [address] [place] [address] Dr. Alfie Mcnulty WBC 2-5 Abnormal NONE SEEN [facility] Comment on above: Performed By: #### E RUR, UMICRO #### [facility] [address] [place] [address] Dr. 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 Inmate/Patient is out of alf. Appointment will be broken and will not rescheduled at this time. Malika Shrestha I approve the above note. ----- Tuesday, October 11, 2022 at 10:42:03 AM ----- ----- Provider: Billy Humphrey DMD -- Clinic: [facility] ----- Normal [facility] DRUG SCREEN RAPID (URINE)on 09-29-2022 AMP Negative Normal NEGATIVE [facility] Comment on above: Performed By: #### C MP #### [facility] [address] [place] [address] Dr. Alfie Mcnulty BAR Negative Normal NEGATIVE [facility] Comment on above: Performed By: #### C MP #### [facility] [address] [place] [address] Dr. Alfie Mcnulty BUP Negative Normal NEGATIVE [facility] Comment on above: Performed By: #### C MP #### [facility] [address] [address] [address] Alfie Mcnulty BZO Negative Normal NEGATIVE [facility] Comment on above: Performed By: #### C MP #### [facility] [address] [place] [address] Dr. Alfie Mcnulty LALITO Negative Normal NEGATIVE [facility] Comment on above: Performed By: #### C MP #### [facility] [address] [place] [address] Dr. Alfie Mcnulty CUT-OFFS SEE BELOW Normal [facility] Comment on above: Result Comment: AMP (Amphetamine): 500ng/mL, BAR (Barbituates): 200 ng/mL, BZO (Benzodiazepines): 150 ng/mL, BUP (Buprenorphine): 10 ng/mL, LALITO (Cocaine): 150 ng/mL, mAMP (Methamphetamine): 500 ng/mL, MTD (Methadone): 200 ng/mL, OPI (Opiates): 100 ng/mL, OXY (Oxycodone): 100 ng/mL, PCP (Phencyclidine): 25 ng/mL, PPX (Propoxyphene): 300 ng/mL, THC (Cannabinoids): 50 ng/mL, TCA (Trycyclic Antidepressants): 300 ng/mL Performed By: #### C MP #### [facility] [address] [place] [address] Dr. Alfie Mcnulty DRUG CUT HEADER DRUG CLASS TEST SYST EM CUT-OFF CONCENTRATIONS ARE FOLLOWS: Normal [facility] Comment on above: Performed By: #### C MP #### [facility] [address] [place] [address] Dr. Alfie Mcnulty mAMP Negative Normal NEGATIVE [facility] Comment on above: Performed By: #### C MP #### [facility] [address] [address] [address] Alfie Mcnulty MTD Negative Normal NEGATIVE [facility] Comment on above: Performed By: #### C MP #### [facility] [address] [place] [address] Dr. Alfie Mcnulty OPI Negative Normal NEGATIVE [facility] Comment on above: Performed By: #### C MP #### [facility] [address] [address] [address] Alfie Mcnulty OXY Negative Normal NEGATIVE [facility] Comment on above: Performed By: #### C MP #### [facility] [address] [address] [address] Alfie Mcnulty PCP Negative Normal NEGATIVE [facility] Comment on above: Performed By: #### C MP #### [facility] [address] [place] [address] Dr. Alfie Mcnulty PPX Negative Normal NEGATIVE [facility] Comment on above: Performed By: #### C MP #### [facility] [address] [place] [address] Dr. Alfie Mcnulty TCA Negative Normal NEGATIVE [facility] Comment on above: Performed By: #### C MP #### [facility] [address] [place] [address] Dr. Alfie Mcnulty THC Negative Normal NEGATIVE [facility] Comment on above: Performed By: #### C MP #### [facility] [address] [place] [address] Dr. 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 Requesting tylenol. Order pended to provider pool for review. Normal [facility] TB INTRADERMAL TESTOrdered B y: Kelsi Lopez on 07-28-2022 Interpretation and review of laboratory results Normal [facility] PPD reaction 0 mm [facility] Progress Noteson 07-26-2022 Mine Equipment Design Engineer Authentication Interface Message Text Patient/Inmate Health Assessment Meeta Caraballo, 27 year old male, is admitted to [facility]. This is the first admission within the last 12 months. Pt was living at [facility]. Patient/inmate is being seen today for 14 Day Health Assessment. Pt brought into intake at [facility]. Patient PPD administered right forearm . [place] protocol education explained. Pt voices understanding. Pt medications reconciled and verified, meds pended to provider. Pt takes trazodone, not on formulary. Pt gets invega sustenna, got it two weeks ago, says provider is from [facility]. Consulted mental health- dx schizoeffective. Pt requests [...] or any previous visit (from the past [address] hour(s)). Basic Metabolic Panel None No results [...] clinical findings Ayan Beltran RN Normal [facility] Cholesterol [Mass/volume] in Serum or PlasmaOrdered By: Endy Chester on 05-23-2022 Cholesterol [Mass/Vol] 116 mg/dL 140-200 [facility] Comment on above: Chol less than 200 m g/dl low riskChol 201-239 mg/dl borderline riskChol 240 mg/dl and greater high risk Cholesterol in LDL Calc [Mas s/Vol]Ordered By: Endy Chester on 05-23-2022 Cholesterol in LDL [Mass/Vol] 62 mg/dL 0-[address] [facility] Comment on above: LDL ATP III CLASSIFI CATIONLDL less than 100 mg/dL OptimalLDL 100-129 mg/dL Near or above optimalLDL 130-159 mg/dL Borderline highLDL 160-189 mg/dL HighLDL greater than 189 mg/dL Very high Cholesterol in VLDL Calc [Ma ss/Vol]Ordered By: Endy Chester on 05-23-2022 Cholesterol in VLDL [Mass/Vol] 20 mg/dL [facility] ETHANOL (BLD ALC)on 05-23-20 22 ALC NOTE NOTE: 80 mg/dl is th e legal limit for a blood alcohol level Normal [facility] Comment on above: Performed By: #### E TH #### [facility] [address] [address] [address] Alfie Mcnulty Ethanol [Mass/Vol] 85 mg/dL Normal [facility] Comment on above: Performed By: #### E TH #### [facility] [address] [address] [address] Alfie Mcnulty ALC NOTE NOTE: 80 mg/dl is th e legal limit for a blood alcohol level Normal [facility] Comment on above: Performed By: #### C MP #### [facility] [address] [address] [address] Alfie Mcnulty Ethanol [Mass/Vol] 171 mg/dL Normal [facility] Comment on above: Performed By: #### C MP #### [facility] [address] [address] [address] Alfie Mcnulty No Panel InformationOrdered By: Endy Chester on 05-23-2022 25-Hydroxy Vitamin D Total 46.5 ng/mL 30-[address] [facility] Comment on above: VITAMIN D STATUS 25( [place])VITAMIN D RANGE (ng/mL) Deficient <20 Insufficient 20 to <30Sufficient 30 to 100Reference: Juaquin MF,Omero NC, Giovana GOLDSTEIN, et al. Evaluation,treatment, and prevention of vitamin D deficiency; an Endocrine Society clinical practice guideline. JCEM. 2010; 96(7):1911-30. POTASSIUMon 05-23-2022 Potassium [Moles/Vol] 3.0 mmol/L Critically low 3.5-5.1 [facility] Comment on above: Performed By: #### C MP #### [facility] [address] [address] [address] Alfie Mcnulty Serum or plasma high density lipoprotein (HDL) cholesterol measurementOrdered By: Endy Chester on 05-23-2022 Cholesterol in HDL [Mass/Vol] 34 mg/dL 29-[address] [facility] Comment on above: HDL CHOL ATP-III CLA SSIFICATION Cardiovascular RiskHDL > or equal to 60 mg/dL LOWHDL < 40 mg/dL HIGH Serum or plasma total choles terol/high density lipoprotein (HDL) cholesterol mass ratOrdered By: Endy Chester on 05-23-2022 Cholesterol.total/Choles terol in HDL [Mass ratio] 3.4 {ratio} <5.[address] [facility] TSH DL <= 0.005 mIU/L QnOrde red By: Endy Chester on 05-23-2022 TSH Qn 0.74 m[IU]/L 0.45-5.[address] [facility] Triglyceride [Mass/volume] i n Serum or PlasmaOrdered By: Endy Chester on 05-23-2022 Triglyceride [Mass/Vol] 101 mg/dL 35-149 [facility] Comment on above: TRIG ATP III CLASSIF ICATIONTRIG less than 150 mg/dL NormalTRIG 150-199 mg/dL Borderline highTRIG 200-500 mg/dL High TRIG greater than 500 mg/dL Very highStandard traceable to the Center for Disease Conrtrol and Prevention (CDC) test method. ACETAMINOPHENon 05-22-2022 Acetaminophen [Mass/Vol] ug/mL Normal 10.0-30.0 [facility] Comment on above: Performed By: #### C MP #### [facility] [address] [address] [address] Alfie Mcnulty CBC AUTO DIFFon 05-22-2022 BASO # 0.1 103/ul Normal 0.0-0.1 [facility] Comment on above: Performed By: #### C BC #### [facility] [address] [address] [address] Alfie Mcnulty Basophils/100 WBC (Bld) 0.7 % Normal 0.2-2.0 [facility] Comment on above: Performed By: #### C BC #### [facility] [address] [place] [address] Dr. Alfie Mcnulty EO # 0.0 103/ul Normal 0.0-0.7 [facility] Comment on above: Performed By: #### C BC #### [facility] [address] [place] [address] Dr. Alfie Mcnulty Eosinophils/100 WBC (Bld) 0.0 % Critically low 0.9-7.0 [facility] Comment on above: Performed By: #### C BC #### [facility] [address] [place] [address] Dr. Alfie Mcnulty Erythrocyte distribution width (RBC) [Ratio] 11.8 % Normal 11.0-15.0 [facility] Comment on above: Performed By: #### C BC #### [facility] [address] [place] [address] Dr. Alfie Mcnulty Hematocrit (Bld) [Volume fraction] 37.5 % Critically low 42.0-54.0 [facility] Comment on above: Performed By: #### C BC #### [facility] [address] [place] [address] Dr. Alfie Mcnulty Hemoglobin (Bld) [Mass/Vol] 13.2 g/dL Critically low 14.0-18.0 [facility] Comment on above: Performed By: #### C BC #### [facility] [address] [place] [address] Dr. Alfie Mcnulty IG # 0.03 10e3/ul Normal 0.00-0.03 [facility] Comment on above: Performed By: #### C BC #### [facility] [address] [place] [address] Dr. Alfie Mcnulty IG % 0.4 % Normal 0.0-0.5 [facility] Comment on above: Performed By: #### C BC #### [facility] [address] [place] [address] Dr. Alfie Mcnulty LYMPH # 2.4 103/ul Normal 1.2-3.8 [facility] Comment on above: Performed By: #### C BC #### [facility] [address] [place] [address] Dr. Alfie Mcnulty Lymphocytes/100 WBC (Bld) 31.5 % Normal 20.5-60.0 [facility] Comment on above: Performed By: #### C BC #### [facility] [address] [place] [address] Dr. Alfie Mcnulty MANUAL DIFF REQ NO Normal [facility] Comment on above: Performed By: #### C BC #### [facility] [address] [place] [address] Dr. Alfie Mcnulty MCH (RBC) [Entitic mass] 29.8 pg Normal 25.9-34.0 [facility] Comment on above: Performed By: #### C BC #### [facility] [address] [place] [address] Dr. Alfie Mcnulty MCHC (RBC) [Mass/Vol] 35.2 g/dL Normal 29.9-35.2 [facility] Comment on above: Performed By: #### C BC #### [facility] [address] [place] [address] Dr. Alfie Mcnulty MCV (RBC) [Entitic vol] 84.7 fL Normal 80.0-94.0 [facility] Comment on above: Performed By: #### C BC #### [facility] [address] [place] [address] Dr. Alfie Mcnulty MONO # 0.5 103/ul Normal 0.3-0.8 [facility] Comment on above: Performed By: #### C BC #### [facility] [address] [place] [address] Dr. Alfie Mcnulty Monocytes/100 WBC (Bld) 6.6 % Normal 1.7-12.0 [facility] Comment on above: Performed By: #### C BC #### [facility] [address] [place] [address] Dr. Alfie Mcnutly NEUT # 4.6 103/ul Normal 1.4-6.5 [facility] Comment on above: Performed By: #### C BC #### [facility] [address] [place] [address] Dr. Alfie Mcnulty Neutrophils/100 WBC (Bld) 60.8 % Normal 43.0-75.0 [facility] Comment on above: Performed By: #### C BC #### [facility] [address] [place] [address] Dr. Alfie Mcnulty Platelet mean volume (Bld) [Entitic vol] 10.0 fL Normal 9.5-13.5 [facility] Comment on above: Performed By: #### C BC #### [facility] [address] [place] [address] Dr. Alfie Mcnulty PLT 238 103/ul Normal 150-450 [facility] Comment on above: Performed By: #### C BC #### [facility] [address] [place] [address] Dr. Alfie Mcnulty RBC 4.43 106/ul Critically low 4.70-6.10 [facility] Comment on above: Performed By: #### C BC #### [facility] [address] [place] [address] Dr. Alfie Mcnulty WBC 7.6 103/ul Normal 4.0-11.0 [facility] Comment on above: Performed By: #### C BC #### [facility] [address] [place] [address] Dr. Alfie Mcnulty [facility]19 PCR [facility]on 04[facility]26 SARS-CoV-2 (COVID-19) RNA MORIAH+probe Ql (Unsp spec) Not detected Normal NOT DETECTED [facility] Comment on above: Result Comment: When [...] for this test is supported by the [place] of Health and Human Service's declaration that [...] used). Performed By: #### C MP #### [facility] [address] [place] [address] Dr. Alfie Mcnulty DRUG SCREEN RAPID (URINE)on 05-22-2022 AMP Negative Normal NEGATIVE [facility] Comment on above: Performed By: #### C MP #### [facility] [address] [place] [address] Dr. Alfie Mcnulty BAR Negative Normal NEGATIVE [facility] Comment on above: Performed By: #### C MP #### [facility] [address] [place] [address] Dr. Alfie Mcnulty BUP Negative Normal NEGATIVE [facility] Comment on above: Performed By: #### C MP #### [facility] [address] [place] [address] Dr. Alfie Mcnulty BZO Negative Normal NEGATIVE [facility] Comment on above: Performed By: #### C MP #### [facility] [address] [place] [address] Dr. Alfie Mcnulty LALITO Negative Normal NEGATIVE [facility] Comment on above: Performed By: #### C MP #### [facility] [address] [place] [address] Dr. Alfie Mcnulty CUT-OFFS SEE BELOW Normal [facility] Comment on above: Result Comment: AMP [...] ng/mL Performed By: #### C MP #### [facility] [address] [place] [address] Dr. Alfie Mcnulty DRUG CUT HEADER DRUG CLASS TEST SYST EM CUT-OFF CONCENTRATIONS ARE FOLLOWS: Normal [facility] Comment on above: Performed By: #### C MP #### [facility] [address] [place] [address] Dr. Alfie Mcnulty mAMP Negative Normal NEGATIVE [facility] Comment on above: Performed By: #### C MP #### [facility] [address] [place] [address] Dr. Alfie Mcnulty MTD Negative Normal NEGATIVE [facility] Comment on above: Performed By: #### C MP #### [facility] [address] [place] [address] Dr. Alfie Mcnulty OPI Negative Normal NEGATIVE [facility] Comment on above: Performed By: #### C MP #### [facility] [address] [place] [address] Dr. Alfie Mcnulty OXY Negative Normal NEGATIVE [facility] Comment on above: Performed By: #### C MP #### [facility] [address] [place] [address] Dr. Alfie Mcnulty PCP Negative Normal NEGATIVE [facility] Comment on above: Performed By: #### C MP #### [facility] [address] [place] [address] Dr. Alfie Mcnulty PPX Negative Normal NEGATIVE [facility] Comment on above: Performed By: #### C MP #### [facility] [address] [place] [address] Dr. Alfie Mcnulty TCA Negative Normal NEGATIVE [facility] Comment on above: Performed By: #### C MP #### [facility] [address] [place] [address] Dr. Alfie Mcnulty THC Negative Normal NEGATIVE [facility] Comment on above: Performed By: #### C MP #### [facility] [address] [place] [address] Dr. Alfie Mcnulty ER URINE PROFILEon 2 Bilirubin Ql (U) Negative Normal NEGATIVE [facility] Comment on above: Performed By: #### E RUR #### [facility] [address] [place] [address] Dr. Alfie Mcnulty Clarity (U) CLEAR Normal CLEAR [facility] Comment on above: Performed By: #### E RUR #### [facility] [address] [place] [address] Dr. Alfie Mcnulty Color (U) LT. YELLOW Normal YELLOW [facility] Comment on above: Performed By: #### E RUR #### [facility] [address] [place] [address] Dr. Alfie ROD A micrscopic examina tion will be performed if indicated. Normal [facility] Comment on above: Performed By: #### E RUR #### [facility] [address] [place] [address] Dr. Alfie Mcnulty Glucose Ql (U) Negative Normal NEGATIVE [facility] Comment on above: Performed By: #### E RUR #### [facility] [address] [place] [address] Dr. Alfie Mcnulty Hemoglobin Ql (U) Negative Normal NEGATIVE [facility] Comment on above: Performed By: #### E RUR #### [facility] [address] [place] [address] Dr. Alfie Mcnulty Ketones Ql (U) Negative Normal NEGATIVE [facility] Comment on above: Performed By: #### E RUR #### [facility] [address] [place] [address] Dr. Alfie Mcnulty LEUKOCYTES Negative Normal NEGATIVE [facility] Comment on above: Performed By: #### E RUR #### [facility] [address] [place] [address] Dr. Alfie Mcnulty Nitrite Ql (U) Negative Normal NEGATIVE [facility] Comment on above: Performed By: #### E RUR #### [facility] [address] [place] [address] Dr. Alfie Mcnulty pH (U) 6.0 [pH] Normal 5-9 [facility] Comment on above: Performed By: #### E RUR #### [facility] [address] [address] [address] Alfie Mcnulty SPEC GRAVITY <=1.005 Abnormal 1.005-<=1. 025 [facility] Comment on above: Performed By: #### E RUR #### [facility] [address] [address] [address] Alfie Mcnulty UA PROTEIN Negative Normal NEGATIVE/ TRACE [facility] Comment on above: Performed By: #### E RUR #### [facility] [address] [address] [address] Alfie Mcnulty UR MICRO IND NOT INDICATED Normal [facility] Comment on above: Performed By: #### E RUR #### [facility] [address] [place] [address] Dr. Alfie Mcnulty Urobilinogen Qn (U) 0.2 {Srinivasa'U}/dL Normal 0.2 - 1. 0 [facility] Comment on above: Performed By: #### E RUR #### [facility] [address] [place] [address] Dr. Alfie Mcnulty ETHANOL (BLD ALC)on 05-22-20 22 ALC NOTE NOTE: 80 mg/dl is th e legal limit for a blood alcohol level Normal [facility] Comment on above: Performed By: #### E TH #### [facility] [address] [place] [address] Dr. Alfie Mcnulty Ethanol [Mass/Vol] 250 mg/dL Normal [facility] Comment on above: Performed By: #### E TH #### [facility] [address] [place] [address] Dr. Alfie Mcnulty PROF 14(COMP METB)on 022 Albumin [Mass/Vol] 3.4 g/dL Normal 3.4-5.0 [facility] Comment on above: Performed By: #### C MP #### [facility] [address] [place] [address] Dr. Alfie Mcnulty Albumin/Globulin [Mass ratio] 0.9 {ratio} Normal [facility] Comment on above: Performed By: #### C MP #### [facility] [address] [address] [address] Alfie Mcnulty ALP [Catalytic activity/Vol] 82 U/L Normal 46-116 [facility] Comment on above: Performed By: #### C MP #### [facility] [address] [address] [address] Alfie Mcnulty ALT [Catalytic activity/Vol] 35 U/L Normal 16-63 [facility] Comment on above: Performed By: #### C MP #### [facility] [address] [address] [address] Alfie Mcnulty Anion gap [Moles/Vol] 15.2 mmol/L Normal [facility] Comment on above: Performed By: #### C MP #### [facility] [address] [place] [address] Dr. Alfie Mcnulty AST [Catalytic activity/Vol] 22 U/L Normal 15-37 [facility] Comment on above: Performed By: #### C MP #### [facility] [address] [place] [address] Dr. Alfie Mcnulty Bilirubin [Mass/Vol] 0.2 mg/dL Normal 0.2-1.0 [facility] Comment on above: Performed By: #### C MP #### [facility] [address] [place] [address] Dr. Alfie Mcnulty Calcium [Mass/Vol] 8.2 mg/dL Critically low 8.5-10.1 [facility] Comment on above: Performed By: #### C MP #### [facility] [address] [place] [address] Dr. Alfie Mcnulty Chloride [Moles/Vol] 107 mmol/L Normal 98-107 [facility] Comment on above: Performed By: #### C MP #### [facility] [address] [place] [address] Dr. Alfie Mcnulty CO2 [Moles/Vol] 24.7 mmol/L Normal 21.0-32.0 [facility] Comment on above: Performed By: #### C MP #### [facility] [address] [address] [address] Alfie Mcnulty Creatinine [Mass/Vol] 0.76 mg/dL Normal 0.70-1.30 [facility] Comment on above: Performed By: #### C MP #### [facility] [address] [address] [address] Alfie Mcnulty EGFR-AF BHUTANESE >60 Normal >=60 [facility] Comment on above: Performed By: #### C MP #### [facility] [address] [address] [address] Alfie Mcnulty EGFR-NON AF BHUTANESE >60 Normal >=60 [facility] Comment on above: Performed By: #### C MP #### [facility] [address] [place] [address] Dr. Alfie Mcnulty Globulin (S) [Mass/Vol] 3.9 g/dL Normal [facility] Comment on above: Performed By: #### C MP #### [facility] [address] [place] [address] Dr. Alfie Mcnulty Glucose [Mass/Vol] 101 mg/dL Normal 74-106 [facility] Comment on above: Performed By: #### C MP #### [facility] [address] [address] [address] Alfie Mcnulty Potassium [Moles/Vol] 2.8 mmol/L Critically low 3.5-5.1 [facility] Comment on above: Performed By: #### C MP #### [facility] [address] [address] [address] Alfie Mcnulty Protein [Mass/Vol] 7.3 g/dL Normal 6.4-8.2 [facility] Comment on above: Performed By: #### C MP #### [facility] [address] [place] [address] Dr. Alfie Mcnulty Sodium [Moles/Vol] 141 mmol/L Normal 136-145 [facility] Comment on above: Performed By: #### C MP #### [facility] [address] [place] [address] Dr. Alfie Mcnulty Urea nitrogen [Mass/Vol] 10.0 mg/dL Normal 7.0-18.0 [facility] Comment on above: Performed By: #### C MP #### [facility] [address] [place] [address] Dr. Alfie Mcnulty Urea nitrogen/Creatinine [Mass ratio] 13.2 mg/mg Normal [facility] Comment on above: Performed By: #### C MP #### [facility] [address] [place] [address] Dr. Alfie Mcnulty SALICYLATEon 05-22-2022 SALICYLATE <2.8 Normal <=19.9 [facility] Comment on above: Performed By: #### C MP #### [facility] [address] [place] [address] Dr. Alfie Mcnulty Covid-19 PCR ([facility])on 04-26 SARS-CoV-2 (COVID-19) RNA MORIAH+probe Ql (Unsp spec) Not detected Normal NOT DETECTED [facility] Comment on above: Result Comment: This test is not yet approved or cleared by the [place] FDA. When there are no FDA-approved or cleared tests available, and other criteria are met, FDA can make tests available under an emergency access mechanism called an Emergency Use Authorization (EUA). The EUA for this test is supported by the [place] of Health and Human Service's (HHS's) declaration [...] SARS-CoV-2. Performed By: #### C MP #### [facility] [address] [place] [address] Dr. Alfie Mcnulty GROUP A STREP CULTUREon 04-26 S. pyogenes Ag Ql (Unsp spec) Culture Observations: NEGATIVE FOR GROUP A STREPTOCOCCUS. Normal [facility] Comment on above: Performed By: #### C MP #### [facility] [address] [place] [address] Dr. Alfie Mcnulty STREPT SCREENon 05-20-2022 STREP SCREEN A Negative Normal NEGATIVE [facility] Comment on above: Performed By: #### C MP #### [facility] [address] [place] [address] Dr. Alfie Mcnulty ER URINE PROFILEon Bilirubin Ql (U) Negative Normal NEGATIVE [facility] Comment on above: Performed By: #### C MP #### [facility] [address] [place] [address] Dr. Alfie Mcnulty Clarity (U) CLEAR Normal CLEAR [facility] Comment on above: Performed By: #### C MP #### [facility] [address] [place] [address] Dr. Alfie Mcnulty Color (U) LT. YELLOW Normal YELLOW [facility] Comment on above: Performed By: #### C MP #### [facility] [address] [place] [address] Dr. Alfie Mcnulty ERUAHD A micrscopic examina tion will be performed if indicated. Normal [facility] Comment on above: Performed By: #### C MP #### [facility] [address] [place] [address] Dr. Alfie Mcnulty Glucose Ql (U) Negative Normal NEGATIVE [facility] Comment on above: Performed By: #### C MP #### [facility] [address] [place] [address] Dr. Alfie Mcnulty Hemoglobin Ql (U) Negative Normal NEGATIVE [facility] Comment on above: Performed By: #### C MP #### [facility] [address] [place] [address] Dr. Alfie Mcnulty Ketones Ql (U) Negative Normal NEGATIVE [facility] Comment on above: Performed By: #### C MP #### [facility] [address] [place] [address] Dr. Alfie Mcnulty LEUKOCYTES Negative Normal NEGATIVE [facility] Comment on above: Performed By: #### C MP #### [facility] [address] [address] [address] Alfie Mcnulty Nitrite Ql (U) Negative Normal NEGATIVE [facility] Comment on above: Performed By: #### C MP #### [facility] [address] [address] [address] Alfie Mcnulty pH (U) 7.0 [pH] Normal 5-9 [facility] Comment on above: Performed By: #### C MP #### [facility] [address] [address] [address] Alfie Mcnulty SPEC GRAVITY 1.020 Normal 1.005-<=1. 025 [facility] Comment on above: Performed By: #### C MP #### [facility] [address] [address] [address] Alfie Mcnulty UA PROTEIN Negative Normal NEGATIVE/ TRACE [facility] Comment on above: Performed By: #### C MP #### [facility] [address] [place] [address] Dr. Alfie Mcnulty UR MICRO IND NOT INDICATED Normal [facility] Comment on above: Performed By: #### C MP #### [facility] [address] [address] [address] Alfie Mcnulty Urobilinogen Qn (U) 1.0 {Srinivasa'U}/dL Normal 0.2 - 1. 0 [facility] Comment on above: Performed By: #### C MP #### [facility] [address] [place] [address] Dr. Alfie Mcnulty CHEMISTRYOrdered By: SYSTEM SYSTEM [...] NEG [place] (02/10/22 1:00 AM) Normal [facility] Man Sero Rapid COV Int POS [place] (02/10/22 1:00 AM) Normal [facility] [place] [facility] SARS-CoV+SARS-CoV-2 (COVID-19) Ag IA.rapid Ql (Resp) Not Detected (02/10/22 1:00 AM) Normal Not Detected [facility] Bilirubin Test strip Ql (U)O rdered By: Endy Chester on 02-02-2022 Bilirubin Ql (U) Negative Negative [facility] Color Auto (U)Ordered By: Ab reggie Chester on 02-02-2022 Color (U) Yellow Yellow [facility] Ketones Auto test strip (U) [Mass/Vol]Ordered By: Endy Chester on 02-02-2022 Ketones (U) [Mass/Vol] Negative Negative [facility] Nitrite Test strip Ql (U)Ord ered By: Endy Chester on 02-02-2022 Nitrite Ql (U) Negative Negative [facility] Protein Auto test strip (U) [Mass/Vol]Ordered By: Endy Chester on 02-02-2022 Protein (U) [Mass/Vol] Negative Negative [facility] Specific gravity Auto test s trip (U) [Rel density]Ordered By: Endy Chester on 02-02-2022 Specific gravity (U) [Rel density] 1.016 1.001-1.[address] [facility] Urine clarity by refractomet ry automatedOrdered By: Endy Chester on 02-02-2022 Clarity Refractometry automated (U) Clear Clear [facility] Urine glucose measurement by automated test strip (mass/volume)Ordered By: Endy Chester on 02-02-2022 Glucose Auto test strip (U) [Mass/Vol] Normal mg/dL Normal [facility] Urine hemoglobin detection b y automated test stripOrdered By: Endy Chester on 02-02-2022 Hemoglobin Auto test strip Ql (U) Negative Negative [facility] Urine leukocyte esterase det ection by automated test stripOrdered By: Endy Chester on 02-02-2022 Leukocyte esterase Auto test strip Ql (U) Negative Negative [facility] Urobilinogen Auto test strip (U) [Mass/Vol]Ordered By: Endy Chester on 02-02-2022 Urobilinogen (U) [Mass/Vol] Normal mg/dL Normal [facility] pH Auto test strip (U)Ordere d By: Endy Chester on 02-02-2022 pH (U) 6.5 [pH] 5.0-9.[address] [facility] Cholesterol [Mass/volume] in Serum or PlasmaOrdered By: Endy Chester on 01-30-2022 Cholesterol [Mass/Vol] 155 mg/dL 140-200 [facility] Comment on above: Chol less than 200 m g/dl low risk Chol 201-239 mg/dl borderline risk Chol 240 mg/dl and greater high risk Cholesterol in LDL Calc [Mas s/Vol]Ordered By: Endy Chester on 01-30-2022 Cholesterol in LDL [Mass/Vol] 86 mg/dL 0-[address] [facility] Comment on above: LDL ATP III CLASSIFI CATION LDL less than 100 mg/dL Optimal LDL 100-129 mg/dL Near or above optimal LDL 130-159 mg/dL Borderline high LDL 160-189 mg/dL High LDL greater than 189 mg/dL Very high Cholesterol in VLDL Calc [Ma ss/Vol]Ordered By: Endy Chester on 01-30-2022 Cholesterol in VLDL [Mass/Vol] 23 mg/dL [facility] No Panel InformationOrdered By: Endy Chester on 01-30-2022 25-Hydroxy Vitamin D Total 35.5 ng/mL 30-[address] [facility] Comment on above: VITAMIN D STATUS [...] Cholesterol in HDL [Mass/Vol] 45 mg/dL 29-[address] [facility] Comment on above: HDL CHOL ATP-III CLA SSIFICATION Cardiovascular Risk HDL > or equal to 60 mg/dL LOW HDL < 40 mg/dL HIGH Serum or plasma total choles terol/high density lipoprotein (HDL) cholesterol mass ratOrdered By: Endy Chester on 01-30-2022 Cholesterol.total/Choles terol in HDL [Mass ratio] 3.4 {ratio} [facility] TSH DL <= 0.005 mIU/L QnOrde red By: Endy Chester on 01-30-2022 TSH Qn 0.49 m[IU]/L 0.45-5.[address] [facility] Triglyceride [Mass/volume] i n Serum or PlasmaOrdered By: Endy Chester on 01-30-2022 Triglyceride [Mass/Vol] 119 mg/dL 35-149 [facility] Comment on above: TRIG ATP III CLASSIF ICATION TRIG less than 150 mg/dL Normal TRIG 150-199 mg/dL Borderline high TRIG 200-500 mg/dL High TRIG greater than 500 mg/dL Very high Standard traceable to the Center for Disease Conrtrol and Prevention (CDC) test method. Covid-19 PCR ([facility])on SARS-CoV-2 (COVID-19) RNA MORIAH+probe Ql (Unsp spec) Not detected Normal NOT DETECTED [facility] Comment on above: Result Comment: When [...] for this test is supported by the [place] [employer] of Health and Human Service's declaration that [...] used). Performed By: #### C MP #### [facility] [address] [place] [address] Dr. Alfie Mcnulty ETHANOL (BLD ALC)on 01-30-20 22 ALC NOTE NOTE: 80 mg/dl is th e legal limit for a blood alcohol level Normal [facility] Comment on above: Performed By: #### C MP #### [facility] [address] [place] [address] Dr. Alfie Mcnulty Ethanol [Mass/Vol] 8 mg/dL Normal [facility] Comment on above: Performed By: #### C MP #### [facility] [address] [place] [address] Dr. Alfie Mcnulty ALC NOTE NOTE: 80 mg/dl is th e legal limit for a blood alcohol level Normal [facility] Comment on above: Performed By: #### C MP #### [facility] [address] [place] [address] Dr. Alfie Mcnulty Ethanol [Mass/Vol] 131 mg/dL Normal [facility] Comment on above: Performed By: #### C MP #### [facility] [address] [place] [address] Dr. Alfie Mcnulty ACETAMINOPHENon 01-28-2022 Acetaminophen [Mass/Vol] ug/mL Normal 10.0-30.0 [facility] Comment on above: Performed By: #### A CET #### [facility] [address] [place] [address] Dr. Alfie Mcnulty CBC AUTO DIFFon 01-28-2022 BASO # 0.0 103/ul Normal 0.0-0.1 [facility] Comment on above: Performed By: #### C MP #### [facility] [address] [place] [address] Dr. Alfie Mcnulty Basophils/100 WBC (Bld) 0.3 % Normal 0.2-2.0 [facility] Comment on above: Performed By: #### C MP #### [facility] [address] [place] [address] Dr. Alfie Mcnulty EO # 0.0 103/ul Normal 0.0-0.7 [facility] Comment on above: Performed By: #### C MP #### [facility] [address] [place] [address] Dr. Alfie Mcnulty Eosinophils/100 WBC (Bld) 0.0 % Critically low 0.9-7.0 [facility] Comment on above: Performed By: #### C MP #### [facility] [address] [place] [address] Dr. Alfie Mcnulty Erythrocyte distribution width (RBC) [Ratio] 12.7 % Normal 11.0-15.0 [facility] Comment on above: Performed By: #### C MP #### [facility] [address] [place] [address] Dr. Alfie Mcnulty Hematocrit (Bld) [Volume fraction] 47.5 % Normal 42.0-54.0 [facility] Comment on above: Performed By: #### C MP #### [facility] [address] [place] [address] Dr. Alfie Mcnulty Hemoglobin (Bld) [Mass/Vol] 16.2 g/dL Normal 14.0-18.0 [facility] Comment on above: Performed By: #### C MP #### [facility] [address] [place] [address] Dr. Alfie Mcnulty IG # 0.03 10e3/ul Normal 0.00-0.03 [facility] Comment on above: Performed By: #### C MP #### [facility] [address] [place] [address] Dr. Alfie Mcnulty IG % 0.3 % Normal 0.0-0.5 [facility] Comment on above: Performed By: #### C MP #### [facility] [address] [place] [address] Dr. Alfie Mcnulty LYMPH # 3.5 103/ul Normal 1.2-3.8 [facility] Comment on above: Performed By: #### C MP #### [facility] [address] [place] [address] Dr. Alfie Mcnulty Lymphocytes/100 WBC (Bld) 34.7 % Normal 20.5-60.0 [facility] Comment on above: Performed By: #### C MP #### [facility] [address] [place] [address] Dr. Alfie Mcnulty MANUAL DIFF REQ NO Normal [facility] Comment on above: Performed By: #### C MP #### [facility] [address] [place] [address] Dr. Alfie Mcnulty MCH (RBC) [Entitic mass] 29.6 pg Normal 25.9-34.0 [facility] Comment on above: Performed By: #### C MP #### [facility] [address] [place] [address] Dr. Alfie Mcnulty MCHC (RBC) [Mass/Vol] 34.1 g/dL Normal 29.9-35.2 [facility] Comment on above: Performed By: #### C MP #### [facility] [address] [place] [address] Dr. Alfie Mcnulty MCV (RBC) [Entitic vol] 86.8 fL Normal 80.0-94.0 [facility] Comment on above: Performed By: #### C MP #### [facility] [address] [place] [address] Dr. Alfie Mcnulty MONO # 0.4 103/ul Normal 0.3-0.8 [facility] Comment on above: Performed By: #### C MP #### [facility] [address] [place] [address] Dr. Alfie Mcnulty Monocytes/100 WBC (Bld) 4.1 % Normal 1.7-12.0 [facility] Comment on above: Performed By: #### C MP #### [facility] [address] [place] [address] Dr. Alfie Mcnulty NEUT # 6.1 103/ul Normal 1.4-6.5 [facility] Comment on above: Performed By: #### C MP #### [facility] [address] [address] [address] Alfie Mcnulty Neutrophils/100 WBC (Bld) 60.6 % Normal 43.0-75.0 [facility] Comment on above: Performed By: #### C MP #### [facility] [address] [address] [address] Alfie Mcnulty Platelet mean volume (Bld) [Entitic vol] 9.3 fL Critically low 9.5-13.5 [facility] Comment on above: Performed By: #### C MP #### [facility] [address] [place] [address] Dr. Alfie Mcnulty PLT 304 103/ul Normal 150-450 [facility] Comment on above: Performed By: #### C MP #### [facility] [address] [place] [address] Dr. Alfie Mcnulty RBC 5.47 106/ul Normal 4.70-6.10 [facility] Comment on above: Performed By: #### C MP #### [facility] [address] [place] [address] Dr. Alfie Mcnulty WBC 10.0 103/ul Normal 4.0-11.0 [facility] Comment on above: Performed By: #### C MP #### [facility] [address] [place] [address] Dr. Alfie Mcnulty DRUG SCREEN RAPID (URINE)on 01-28-2022 AMP Negative Normal NEGATIVE [facility] Comment on above: Performed By: #### C MP #### [facility] [address] [place] [address] Dr. Alfie Mcnulty BAR Negative Normal NEGATIVE [facility] Comment on above: Performed By: #### C MP #### [facility] [address] [place] [address] Dr. Alfie Mcnulty BUP Negative Normal NEGATIVE [facility] Comment on above: Performed By: #### C MP #### [facility] [address] [place] [address] Dr. Alfie Mcnulty BZO Negative Normal NEGATIVE [facility] Comment on above: Performed By: #### C MP #### [facility] [address] [address] [address] Alfie Mcnulty LALITO Negative Normal NEGATIVE [facility] Comment on above: Performed By: #### C MP #### [facility] [address] [address] [address] Alfie Mcnulty CUT-OFFS SEE BELOW Normal [facility] Comment on above: Result Comment: AMP (Amphetamine): 500ng/mL, BAR (Barbituates): 200 ng/mL, BZO (Benzodiazepines): 150 ng/mL, BUP (Buprenorphine): 10 ng/mL, LALITO (Cocaine): 150 ng/mL, mAMP (Methamphetamine): 500 ng/mL, MTD (Methadone): 200 ng/mL, OPI (Opiates): 100 ng/mL, OXY (Oxycodone): 100 ng/mL, PCP (Phencyclidine): 25 ng/mL, PPX (Propoxyphene): 300 ng/mL, THC (Cannabinoids): 50 ng/mL, TCA (Trycyclic Antidepressants): 300 ng/mL Performed By: #### C MP #### [facility] [address] [place] [address] Dr. Alfie Mcnulty DRUG CUT HEADER DRUG CLASS TEST SYST EM CUT-OFF CONCENTRATIONS ARE FOLLOWS: Normal [facility] Comment on above: Performed By: #### C MP #### [facility] [address] [address] [address] Alfie Mcnulty mAMP Negative Normal NEGATIVE [facility] Comment on above: Performed By: #### C MP #### [facility] [address] [address] [address] Alfie Mcnulty MTD Negative Normal NEGATIVE [facility] Comment on above: Performed By: #### C MP #### [facility] [address] [place] [address] Dr. Alfie Mcnulty OPI Negative Normal NEGATIVE [facility] Comment on above: Performed By: #### C MP #### [facility] [address] [address] [address] Alfie Mcnulty OXY Negative Normal NEGATIVE [facility] Comment on above: Performed By: #### C MP #### [facility] [address] [place] [address] Dr. Alfie Mcnulty PCP Negative Normal NEGATIVE [facility] Comment on above: Performed By: #### C MP #### [facility] [address] [place] [address] Dr. Alfie Mcnulty PPX Negative Normal NEGATIVE [facility] Comment on above: Performed By: #### C MP #### [facility] [address] [place] [address] Dr. Alfie Mcnulty TCA Negative Normal NEGATIVE [facility] Comment on above: Performed By: #### C MP #### [facility] [address] [place] [address] Dr. Alfie Mcnulty THC Negative Normal NEGATIVE [facility] Comment on above: Performed By: #### C MP #### [facility] [address] [place] [address] Dr. Alfie Mcnulty ETHANOL (BLD ALC)on 01-29-20 22 ALC NOTE NOTE: 80 mg/dl is th e legal limit for a blood alcohol level Normal [facility] Comment on above: Performed By: #### C MP #### [facility] [address] [place] [address] Dr. Alfie Mcnulty Ethanol [Mass/Vol] 270 mg/dL Normal [facility] Comment on above: Performed By: #### C MP #### [facility] [address] [place] [address] Dr. Alfie Mcnulty PROF 14(COMP METB)on 022 Albumin [Mass/Vol] 4.1 g/dL Normal 3.4-5.0 [facility] Comment on above: Performed By: #### C MP #### [facility] [address] [place] [address] Dr. Alfie Mcnulty Albumin/Globulin [Mass ratio] 1.1 {ratio} Normal [facility] Comment on above: Performed By: #### C MP #### [facility] [address] [place] [address] Dr. Alfie Mcnulty ALP [Catalytic activity/Vol] 88 U/L Normal 46-116 [facility] Comment on above: Performed By: #### C MP #### [facility] [address] [address] [address] Alfie Mcnulty ALT [Catalytic activity/Vol] 68 U/L Critically high 16-63 [facility] Comment on above: Performed By: #### C MP #### [facility] [address] [address] [address] Alfie Mcnulty Anion gap [Moles/Vol] 12.4 mmol/L Normal [facility] Comment on above: Performed By: #### C MP #### [facility] [address] [address] [address] Alfie Mcnulty AST [Catalytic activity/Vol] 29 U/L Normal 15-37 [facility] Comment on above: Performed By: #### C MP #### [facility] [address] [address] [address] Alfie Mcnulty Bilirubin [Mass/Vol] 0.3 mg/dL Normal 0.2-1.0 [facility] Comment on above: Performed By: #### C MP #### [facility] [address] [address] [address] Alfie Mcnulty Calcium [Mass/Vol] 8.3 mg/dL Critically low 8.5-10.1 [facility] Comment on above: Performed By: #### C MP #### [facility] [address] [address] [address] Alfie Mcnulty Chloride [Moles/Vol] 103 mmol/L Normal 98-107 [facility] Comment on above: Performed By: #### C MP #### [facility] [address] [address] [address] Alfie Mcnulty CO2 [Moles/Vol] 27.9 mmol/L Normal 21.0-32.0 [facility] Comment on above: Performed By: #### C MP #### [facility] [address] [place] [address] Dr. Alfie Mcnulty Creatinine [Mass/Vol] 0.77 mg/dL Normal 0.70-1.30 [facility] Comment on above: Performed By: #### C MP #### [facility] [address] [address] [address] Alfie Mcnulty EGFR-AF BHUTANESE >60 Normal >=60 [facility] Comment on above: Performed By: #### C MP #### [facility] [address] [address] [address] Alfie Mcnulty EGFR-NON AF BHUTANESE >60 Normal >=60 [facility] Comment on above: Performed By: #### C MP #### [facility] [address] [address] [address] Alfie Mcnulty Globulin (S) [Mass/Vol] 3.8 g/dL Normal [facility] Comment on above: Performed By: #### C MP #### [facility] [address] [address] [address] Alfie Mcnulty Glucose [Mass/Vol] 99 mg/dL Normal 74-106 [facility] Comment on above: Performed By: #### C MP #### [facility] [address] [address] [address] Alfie Mcnulty Potassium [Moles/Vol] 3.3 mmol/L Critically low 3.5-5.1 [facility] Comment on above: Performed By: #### C MP #### [facility] [address] [address] [address] Alfie Mcnulty Protein [Mass/Vol] 7.9 g/dL Normal 6.4-8.2 [facility] Comment on above: Performed By: #### C MP #### [facility] [address] [address] [address] Alfie Mcnulty Sodium [Moles/Vol] 140 mmol/L Normal 136-145 [facility] Comment on above: Performed By: #### C MP #### [facility] [address] [address] [address] Alfie Mcnulty Urea nitrogen [Mass/Vol] 9.0 mg/dL Normal 7.0-18.0 [facility] Comment on above: Performed By: #### C MP #### [facility] [address] [address] [address] Alfie Mcnulty Urea nitrogen/Creatinine [Mass ratio] 11.7 mg/mg Normal [facility] Comment on above: Performed By: #### C MP #### [facility] [address] [place], [place] [address] Dr. Alfie Mcnulty SALICYLATEon 01-28-2022 SALICYLATE <2.8 Normal <=19.9 [facility] Comment on above: Performed By: #### C MP #### [facility] [id number] 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 [facility] HIM IP Note OR Mine Equipment Design Engineer Normal [facility] HIM IP Note OR Mine Equipment Design Engineer Normal [facility] HIM IP Note OR Mine Equipment Design Engineer Normal [facility] HIM IP Note OR Mine Equipment Design Engineer Normal [facility] HIM IP Note OR Mine Equipment Design Engineer Normal [facility] ED Provider Noteon 7 HIM IP Note OR Mine Equipment Design Engineer Normal [facility] Vital Signs Date Time Vital Sign Value Performing Clinician Facility 05-10-2024 13:27-0400 Blood Pressure Location Donavan Rene [facility] 05-10-2024 13:27-0400 Diastolic blood pressure 76 mm[Hg] Donavan Rene [facility] 05-10-2024 13:27-0400 Heart rate 42 /min Donavan Rene [facility] 05-10-2024 13:27-0400 Respiratory rate 18 /min [employer] 05-10-2024 13:27-0400 Systolic blood pressure 118 mm[Hg] Doanvan Rene [facility] 01-12-2024 11:10-0400 Blood Pressure Location Mohamad Mouchli [facility] 01-12-2024 11:10-0400 Diastolic blood pressure 107 mm[Hg] Mohamad Mouchli [facility] 01-12-2024 11:10-0400 Heart rate 58 /min Mohamad Mouchli [facility] 01-12-2024 11:10-0400 Mean blood pressure 123 mm[Hg] Mohamad Mouchli [facility] 01-12-2024 11:10-0400 Respiratory rate 24 /min Mohamad Mouchli [facility] Comment on above: Result Comment: Pt states I just want t o go Sister advises patient did not have anxiety medications this a.m. 01-12-2024 11:10-0400 SaO2% (BldA) [Mass fraction] 99 % Mohamad Mouchli [facility] 01-12-2024 11:10-0400 Systolic blood pressure 155 mm[Hg] Mohamad Mouchli [facility] 01-12-2024 10:55-0400 Blood Pressure Location Mohamad Mouchli [facility] 01-12-2024 10:55-0400 Diastolic blood pressure 109 mm[Hg] Mohamad Mouchli [facility] 01-12-2024 10:55-0400 Heart rate 66 /min Mohamad Mouchli [facility] 01-12-2024 10:55-0400 Mean blood pressure 121 mm[Hg] Mohamad Mouchli [facility] 01-12-2024 10:55-0400 Respiratory rate 24 /min Mohamad Mouchli [facility] 01-12-2024 10:55-0400 SaO2% (BldA) [Mass fraction] 99 % Mohamad Mouchli [facility] 01-12-2024 10:55-0400 Systolic blood pressure 146 mm[Hg] Mohamad Mouchli [facility] 01-12-2024 10:40-0400 Blood Pressure Location Mohamad Mouchli [facility] 01-12-2024 10:40-0400 Diastolic blood pressure 94 mm[Hg] Mohamad Mouchli [facility] 01-12-2024 10:40-0400 Heart rate 95 /min Mohamad Mouchli [facility] 01-12-2024 10:40-0400 Mean blood pressure 105 mm[Hg] Mohamad Mouchli [facility] 01-12-2024 10:40-0400 Respiratory rate 26 /min Mohamad Mouchli [facility] 01-12-2024 10:40-0400 Respiratory rate 24 /min Mohamad Mouchli [facility] 01-12-2024 10:40-0400 SaO2% (BldA) [Mass fraction] 99 % Mohamad Mouchli [facility] 01-12-2024 10:40-0400 Systolic blood pressure 127 mm[Hg] Mohamad Mouchli [facility] 01-12-2024 10:34-0400 Respiratory rate 11 /min Mohamad Mouchli [facility] 01-12-2024 10:29-0400 Respiratory rate 11 /min Mohamad Mouchli [facility] 01-12-2024 10:19-0400 Body temperature 98.24 [degF] Mohamad Mouchli [facility] 01-12-2024 08:57-0400 Body temperature 98.06 [degF] Mohamad Mouchli [facility] 01-07-2024 13:39-0400 Blood Pressure Location Mohamad Mouchli [facility] 01-07-2024 13:39-0400 Diastolic blood pressure 83 mm[Hg] Mohamad Mouchli [facility] 01-07-2024 13:39-0400 Heart rate 73 /min Mohamad Mouchli [facility] 01-07-2024 13:39-0400 Respiratory rate 16 /min Mohamad Mouchli [facility] 01-07-2024 13:39-0400 Systolic blood pressure 126 mm[Hg] Mohamad Mouchli [facility] 02-06-2023 14:13-0400 Blood Pressure Location Resendiz SALAM [facility] 02-06-2023 14:13-0400 Diastolic blood pressure 82 mm[Hg] Resendiz SALAM [facility] 02-06-2023 14:13-0400 Heart rate 89 /min Resendiz SALAM [facility] 02-06-2023 14:13-0400 Respiratory rate 16 /min Resendiz SALAM [facility] 02-06-2023 14:13-0400 Systolic blood pressure 122 mm[Hg] Resendiz SALAM [facility] 07-26-2022 20:44-0500 Body height 177.8 cm [facility] Provider Work Phone: [facility] 07-26-2022 20:44-0500 Body mass index (BMI) [Ratio] 23.88 kg/m2 [facility] Provider Work Phone: [facility] 07-26-2022 20:44-0500 Body temperature 98.6 [degF] [facility] Provider Work Phone: [facility] 07-26-2022 20:44-0500 Body weight 75.48 kg [facility] Provider Work Phone: [facility] 07-26-2022 20:44-0500 Diastolic blood pressure 80 mm[Hg] [facility] Provider Work Phone: [facility] 07-26-2022 20:44-0500 Heart rate 62 /min [facility] Provider Work Phone: [facility] 07-26-2022 20:44-0500 Respiratory rate 18 /min [facility] Provider Work Phone: [facility] 07-26-2022 20:44-0500 SaO2% (BldA) [Mass fraction] 98 % [facility] Provider Work Phone: [facility] 07-26-2022 20:44-0500 Systolic blood pressure 118 mm[Hg] [facility] Provider Work Phone: [facility] 05-28-2022 07:30-0400 Body temperature 97.6 [degF] [facility] 05-28-2022 07:30-0400 Diastolic blood pressure 61 mm[Hg] [facility] 05-28-2022 07:30-0400 Heart rate 89 /min [facility] 05-28-2022 07:30-0400 Respiratory rate 18 /min [facility] 05-28-2022 07:30-0400 SaO2% (BldA) [Mass fraction] 96 % [facility] 05-28-2022 07:30-0400 Systolic blood pressure 109 mm[Hg] [facility] 05-27-2022 09:00-0400 Body weight 73.02 kg [facility] 05-23-2022 14:42-0400 Body height 177.8 cm [facility] 02-10-2022 15:30-0400 Diastolic blood pressure 63 mm[Hg] Luis A Lizandro [facility] 02-10-2022 15:30-0400 Heart rate 102 /min Luis A Lizandro [facility] 02-10-2022 15:30-0400 Respiratory rate 15 /min Luis A Lizandro [facility] 02-10-2022 15:30-0400 SaO2% (BldA) [Mass fraction] 95 % Luis A Lizandro [facility] 02-10-2022 15:30-0400 Systolic blood pressure 107 mm[Hg] Luis A Lizandro [facility] 02-10-2022 11:07-0400 Diastolic blood pressure 72 mm[Hg] Luis A Lizandro [facility] 02-10-2022 11:07-0400 Heart rate 105 /min Luis A Lizandro [facility] 02-10-2022 11:07-0400 Mean blood pressure 87 mm[Hg] Luis A Lizandro [facility] 02-10-2022 11:07-0400 Respiratory rate 16 /min Luis A Lizandro [facility] 02-10-2022 11:07-0400 SaO2% (BldA) [Mass fraction] 94 % Luis A Lizandro [facility] 02-10-2022 11:07-0400 Systolic blood pressure 117 mm[Hg] Luis A Lizandro [facility] 02-10-2022 07:00-0400 Body temperature 98.24 [degF] [facility] [employer] [facility] 02-10-2022 07:00-0400 Diastolic blood pressure 74 mm[Hg] [facility] [employer] [facility] 02-10-2022 07:00-0400 Heart rate 93 /min [facility] [employer] [facility] 02-10-2022 07:00-0400 Mean blood pressure 85 mm[Hg] [facility] [employer] [facility] 02-10-2022 07:00-0400 Respiratory rate 18 /min [facility] [employer] [facility] 02-10-2022 07:00-0400 SaO2% (BldA) [Mass fraction] 99 % [facility] [employer] [facility] 02-05-2022 07:30-0400 Body temperature 97.5 [degF] PHYSICIAN [facility] 02-05-2022 07:30-0400 Diastolic blood pressure 65 mm[Hg] PHYSICIAN [facility] 02-05-2022 07:30-0400 Heart rate 78 /min PHYSICIAN [facility] 02-05-2022 07:30-0400 SaO2% (BldA) [Mass fraction] 97 % PHYSICIAN [facility] 02-05-2022 07:30-0400 Systolic blood pressure 109 mm[Hg] PHYSICIAN [facility] 02-04-2022 19:46-0400 Respiratory rate 16 /min PHYSICIAN [facility] 02-04-2022 09:00-0400 Body weight 65.9 kg PHYSICIAN [facility] 01-30-2022 15:13-0400 Body height 177.8 cm PHYSICIAN [facility] 01-29-2022 11:49-0400 Body mass index (BMI) [Ratio] 20.7 kg/m2 PHYSICIAN [facility] Encounters Encounter Date Encounter Type Care Provider Facility Start: 02-08-2025 ambulatory Endy Benavides acility:[facility] Start: 12-28-2024 End: 12-28-2024 [facility] Start: 09-15-2024 End: 09-15-2024 ambulatory Mohedisd A. Mojorge Facility:[facility] Start: 09-15-2024 End: 09-15-2024 Patient encounter procedure Mohamad A. Mouchli [facility] Start: 05-10-2024 End: 05-10-2024 [facility] Start: 05-10-2024 End: 05-10-2024 Patient encounter procedure Mohedisd A. Edgadr [facility] Start: 02-18-2024 End: 02-18-2024 ambulatory [facility] A[facility]okadili [facility] Start: 02-18-2024 End: 02-18-2024 Patient encounter procedure Mohamad A. Mouchli [facility] Start: 01-12-2024 End: 01-12-2024 ambulatory Mohamad A. Mouchli Facility:[facility] Start: 01-12-2024 End: 01-12-2024 Patient encounter procedure Mohamad A. Mouchli [facility] Start: 01-07-2024 End: 01-07-2024 ambulatory [facility]okadili [facility] Start: 01-07-2024 End: 01-07-2024 Patient encounter procedure Mohamad A. Mouchli [facility] Start: 04-21-2023 End: 05-02-2023 Pre-admission assessment XXXX NONE [facility] Start: 02-06-2023 End: 02-14-2023 Pre-admission assessment Martín POPE [facility] Start: 02-06-2023 End: 02-06-2023 Patient encounter procedure Martín POPE [facility] Start: 11-06-2022 End: 11-06-[address] NONE LISTED REQUEST Facility: Start: 09-29-2022 End: 09-29-[address] NONE LISTED REQUEST Facility:H1 Start: 09-26-2022 End: 09-26-2022 Patient encounter procedure CHEVY JOY [facility] Start: 09-09-2022 End: 09-09-2022 Patient encounter procedure MIKHAIL GIBBS [facility] [place] Start: 07-27-2022 Orders Only Titi Eason MD Work Phone: [facility] Start: 07-26-2022 End: 07-30-2022 ambulatory UNKNOWN PROVIDER Facility:[facility] Start: 07-26-2022 End: 07-30-2022 Subsequent hospital visit by physician [facility] Provider Work Phone: [facility] Comment on above: [facility] in [facility] (Primary Dx) Start: 05-23-2022 End: 05-28-2022 Evaluation and management of inpatient [facility] Start: 05-22-2022 End: 05-23-[address] NONE LISTED REQUEST Facility: Start: 05-20-2022 End: 05-20-2022 ambulatory NONE LISTED REQUEST Facility:H1 Start: 05-02-2022 End: 05-02-2022 ambulatory NONE LISTED REQUEST Facility:H1 Start: 03-23-2022 End: 03-24-[address] DILMA SANTAMARIA Facility:[facility]1 Start: 02-10-2022 End: 02-10-2022 Emergency department patient visit Luis A Bone [facility] Start: 01-29-2022 End: 02-05-2022 Evaluation and management of inpatient PHYSICIAN CATHERINE STANLEY [facility] Start: 01-28-2022 End: 01-29-[address] DILMA SANTMAARIA Facility:[facility]1 Start: 06-20-2017 End: 06-20-2017 Evaluation and management of inpatient BERTO BOWDEN [facility] Procedures Date Procedure Procedure Detail Performing Clinician Start: 01-12-2024 Colonoscopy Donavan Rene Start: 01-12-2024 Esophagogastroduodenoscopy Mohjose vidal Start: 07-28-2022 Skin test tuberculosis intradermal Honorio Guevara [employer] REPRESENT[employer] Work Phone: Start: 02-04-2022 US scan of bladder PHYSICIAN CATHERINE STANLEY Start: 06-20-2017 IP CONSULT TO TRAUMA SURGERY BERTO Hernandez uLis A Bone Plan of Treatment Date Care [...] 2 (SARS-CoV-2) Expected: 07/27/2022, Expires: 08/27/2022 [facility] Work Phone: Comment on above: Expected: 07/27/2022 , Expires: 08/27/2022 Start: 05-28-[address] [facility] Start: 05-23-2022 Hospital admission [facility] Start: 1995 COVID-19 Vaccine (#1) COVID-19 Vacci ne (#1) [facility] Chlamydia trachomati s DNA [Presence] in Unspecified specimen by MORIAH with probe detection [facility] Work Phone: Neisseria gonorrhoea e DNA [Presence] in Unspecified specimen by MORIAH with probe detection [facility] Work Phone: Patient Education Schizoaffectiv e Disorder (DC) [facility] Behavioral Health DC Instructions [facility] Work Phone: Patient referral [facility] Work Phone: Trichomonas vaginali s DNA [Presence] in Unspecified specimen by MORIAH with probe detection [facility] Work Phone: Immunizations Immunization Date Immunization Notes Care Provider Marlyn smallwood 07-26-2022 tuberculin skin test ; purified protein derivative solution, intradermal Titi Eason MD Work Phone: [facility] 05-25-2022 influenza virus vaccine, unspecified formulation Martín POPE [facility] 05-25-2022 influenza, injectable, quadrivalent, preservative free [facility] 12-09-2021 diphtheria, tetanus toxoids and pertussis vaccine Titi Eason MD Work Phone: [facility] 09-03-2019 hepatitis A vaccine, adult dosage Titi Eason MD Work Phone: [facility] Comment on above: Result Comment: 2022: [facility] 06-20-2017 tetanus toxoid, reduced diphtheria toxoid, and acellular pertussis vaccine, adsorbed Luis A Bone [facility] Comment on above: Early/Late Reason: A ccommodate D/C 02-10-2016 tetanus toxoid, reduced diphtheria toxoid, and acellular pertussis vaccine, adsorbed Luis A Lizandro [facility] 02-25-2012 tetanus toxoid, reduced diphtheria toxoid, and acellular pertussis vaccine, adsorbed Luis A Lizandro [facility] 07-13-2009 novel [id number], preservative-free, injectable Titi Eason MD Work Phone: [facility] 05-14-2000 hepatitis B vaccine, pediatric or pediatric/adolescent dosage Titi Eason MD Work Phone: [facility] 05-14-2000 measles, mumps and rubella virus vaccine Titi Eason MD Work Phone: [facility] 07-26-1996 hepatitis B vaccine, pediatric or pediatric/adolescent dosage Resendiz SALAM [facility] 07-26-1996 Hib, unspecified formulation Resendiz SALAM [facility] 04-09-1995 measles, mumps and rubella virus vaccine Resendiz SALAM [facility] 1993 diphtheria and tetanus toxoids, adsorbed for pediatric use Resendiz SALAM [facility] 1993 Hib, unspecified formulation Resendiz SALAM [facility] NEGATED: Highlighted row has not occurred!05-10-2024 influenza virus vaccine, unspecified formulation Donavan Rene [facility] NEGATED: Highlighted row has not occurred!10-15-2018 influenza, seasonal, injectable Luis A Lizandro [facility] Payers Date Payer Category Payer Self-pay [id number] 2022 [employer] [id number] 2022 [employer] [id number] 2022 Medicaid MEDICAID FFS-[facility] MEDICAID [id number] 2022-Present [address] [place] [address] Medicaid [id number] 1993 Unknown [id number] 2.16.840.1.718201.3.579.2. 593 1993 Unknown [id number] 2.16.840.1.794776.3.579.2. 593 1993 Unknown [id number] 2.16.840.1.042734.3.579.2. 593 1993 Unknown [id number] 2.16.840.1.426975.3.579.2. 593 1993 Unknown [id number] 2.16.840.1.233904.3.579.2. 593 1993 Unknown [id number] 2.16.840.1.951126.3.579.2. 593 1993 Unknown [id number] 2.16.840.1.287942.3.579.2. 593 1993 Unknown [id number] 2.16.840.1.743136.3.579.2. 727 1993 Unknown [id number] 2.16.840.1.775270.3.579.2. 727 1993 Unknown [id number] 2.16.840.1.011695.3.579.2. 727 1993 Unknown [id number] 2.16.840.1.829225.3.579.2. 727 1993 Unknown [id number] 2.16.840.1.634820.3.579.2. 727 1993 Unknown [id number] 2.16.840.1.929419.3.579.2. 727 1959 Unknown [id number] 1949 Unknown [id number] 2.16.840.1.335147.3.579.2. 732 Unknown [id number] 2.16.840.1.712811.3.579.2. 531 Social History Date Type Detail Facility Start: 02-03-2022 End: 05-23-2022 Tobacco smoking status NHIS Smoker (finding) [facility] Start: 1995 Sex Assigned At Male [facility] Tobacco [facility] Comment on above: smokes 5 cigs per da y. Sex Assigned At Male [facility] Tobacco smoking status [facility] Tobacco [facility] Work Phone: Start: 1995 Sex Assigned At Not on file M [facility] Tobacco smoking status No Smoking Status Entered [facility] [place] Start: 02-06-2023 End: 05-10-2024 Tobacco smoking status Heavy tobacco smoker (finding) [facility] Comment on above: smokes 5 cigs per da y. Goals Date Patient Goal Desired Activity /State Functional Status Date Assessment Result Facility 05-10-2024 Functional Status N/A [facility] 01-12-2024 Functional Status N/A [facility] 01-07-2024 Functional Status N/A [facility] 02-06-2023 Functional Status N/A [facility] 05-28-2022 Functional status Patient at Baseline [facility] Work Phone: 02-10-2022 Functional Status N/A [facility] 02-05-2022 Functional status Patient at Baseline [facility] Work Phone: Mental Status Date Assessment Result Facility 05-28-2022 Cognitive function Cognitive Sta tus Patient at Baseline [facility] Work Phone: 02-05-2022 Cognitive function Cognitive Sta s Patient at Baseline [facility] Work Phone: Clinical Notes 01-30-2022 to 01-13-2024 Note Date & Type Note Facility 01-13-2024 Note [id number] #[id number] 01-12-2024 Evaluation + Plan note Extrac safia from: Title:ANES [facility] Author:Pro Chiu DO. Date:01/12/24 Plan Transfer/Discharge: Patient exhibiting no signs of N/V. Hydration status is adequate. Extracted from: Title:Aram Basic PRE Author:Curt Chiu DO Date:01/12/24 Plan [place] [employer] Anesthesiologists (ASA) physical status classification: [...] 01/07/24 Radiology* CT Abdomen/Pelvis w/contrast (enterography) 01/07/24 [facility]05-20-2024 Hospital Discharge instructions Patient Education 01/12/2024 10:40:30 [...] day. 01/12/2024 10:40:27 Endoscopy, Care After Procedure [facility] (CUSTOM) Endoscopy Care After Procedure Please read [...] blood. Document Released: 03/25/2005 Document Re-Released: 02/02/2007 [facility] Information [employer]. 01/12/2024 10:40:19 Esophagitis Esophagitis Esophagitis is inflammation [...] Follow these instructions at home: Medicines Take nhsd-ris-flrncfr and prescription medicines only as told by [...] powder, vinegar, hot sauces, and barbecue sauce. ?Twiggs fruit juices and citrus fruits, such as oranges, fuentes, and limes. ?Tomato-based foods, such as red sauce, chili, salsa, and pizza with red sauce. ?Fried and fatty foods, such as donuts, tajik fries, potato chips, and high-fat dressings. ?High-fat [...] provider. Document Revised: 02/19/2021 Document Reviewed: 02/19/2021 [employer] Patient Education 2022 Support [employer] App. 01/12/2024 10:40:18 Duodenitis Duodenitis Duodenitis is inflammation [...] Follow these instructions at home: Medicines Take thno-wtb-zyggmuv and prescription medicines only as told by [...] or drinks. ?Garlic or onions. ?Spicy foods. ?Twiggs fruits. ?Tomato-based foods. ?Fatty or fried foods. [...] infection from a type of bacteria. Take yxgl-vjm-bmqsowu and prescription medicines only as told by your health care provider. This information is not intended to replace advice given to you by your health care provider. Make sure you discuss any questions you have with your health care provider. Document Revised: 02/19/2022 Document Reviewed: 02/20/2022 [employer] Patient Education 2022 Support Your App. Follow Up Care 01/07/2024 14:27:49 With:Edgard WILD, Donavan Cates, [facility], [facility] Address: [address] [place] [address], [address] [place] [address]- [phone] When: Unknown Comments:Office will call to schedule follow up appointment and/or review any pending biopsy resultsCall forany problems. [facility]05-15-2024 Evaluation + Plan note Future Scheduled Tests [...] 01/07/24 Radiology* CT Abdomen/Pelvis w/contrast (enterography) 01/07/24 [facility] 05-15-2024 Evaluation + Plan [...] 01/07/24 Radiology* CT Abdomen/Pelvis w/contrast (enterography) 05/10/24 [facility] 06-15-2023 Evaluation + Plan note Future Scheduled Tests Laboratory* Lab Miscellaneous-LC 02/06/23 * HCV RNA by PCR, Qn Rfx Cassandra 02/06/23 [facility]02-02-2023 Evaluation + Plan note Diagnostic Tests Pending * HIV Screen 4th Generation wRfx 09/26/22 * Acute Hepatitis A B C Panel 09/26/22 [facility]12-05-2022 History of Present illness Narrative* João Bella LPN - 07/29/2022 5:20 PM EST Pt to med cart c/o headache. Requesting tylenol. Order pended to provider pool for review. * Ayan Beltran RN - 07/26/2022 9:18 PM EST Patient/Inmate Health Assessment Meeta Caraballo, 27 year old male, is admitted to [facility]. This is the first admission within the last 12 months. Pt was [facility] at [facility]. Patient/inmate is being seen today for 14 Day Health Assessment. Pt brought into intake at [facility]. Patient PPD administered right forearm . [place] protocol education explained. Pt voices understanding. Pt medications reconciled and verified, meds pended to provider. Pt takes trazodone, not on formulary. Pt gets invega sustenna, got it two weeks ago, says provider is from [place]. Consulted mental health- dx schizoeffective. Pt requests [...] or any previous visit (from the past 23025 hour(s)). Basic Metabolic Panel None No results [...] findings Ayan Beltran RN documented in this [id number] Reason for referral (narrative)* Specialty Diagnoses / Procedures Referred By Alicja hernandez Referred To Contact Titi Eason MD [address] [place] [address] [place] [address] Referral ID Status Reason Start Date Expiration Date Visits Re quested Visits Authorized [id number] Discharge summary Author Jens Neal [facility] May 28, 2022 1:54pm Note Date/Time May 28, 2022 12 :47pm [facility] [address] [place] [address] Discharge Summary Signed Patient: Meeta Caraballo MR#: [id number] : 1995 Acct:[id number] Age/Sex: 27 / M Adm Date: 2 Loc: Room: [address] [place] [address]: Maddie Chester MD Copies to: [...] Plan Discharge Plan Patient Disposition: Law Enforcement/ Alf Activity: No Activity Restriction Diet: Regular Additional Instructions: Regular diet No activity restrictions Instructions: Schizoaffective Disorder (DC), [facility] Behavioral Health DC Instructions Prescriptions: New clindamycin [...] Due on or around 03/14/22 Follow Up: [facility] [Outside] - 06/04/22 3:45 pm (Nurse: Friday06/04/22 @ 3:45pm with Phani for Long Acting Injection. Psychiatry: Friday06/25/22 3:20pm with kimmie Sánchez CNP) [facility] [Outside] - 05/29/22 1:30 pm (Case Management: Friday05/29/22 @ 1:30pm you will receive a call from Nani. Therapy: Friday06/05/22 @ 2:00pm with Queenie) Discharge Orders: Discharge Order (Routine); Ordered 05/28/22 Ordered By: Jens Neal Documented By: Jens Neal MD 05/28/22 1246 Signed By: <Electronically signed by Jens Neal MD> 05/28/22 5409 [facility] Work Phone: 1(363) 362-237810-03-2022 Progress note Author Jens Neal [facility] May 27, 2022 2:10pm Note Date/Time May 27, 2022 2: 10pm [facility] [address] [place] [address] Psychiatry Progress Note Signed Patient: Meeta Caraballo MR#: [id number] : 1995 Acct:[id number] Age/Sex: 27 / M Adm Date: 2 Loc: Room: [address] [place] [address] Type : ADM IN Attending Dr: Maddie [...] here. He is concerned about going to alf. When I mentionedrehab instead of alf he got upset. He feels he does not need rehab to control his alcohol tendencies. He does admit that his sister is in charge of his finances, and when he does get his debit card he goes to [employer] to take money off the card to buy alcohol. He is not sure if his sister will take him back home. 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 Denies suicidality, homicidality. Denies visual or [...] Risk benefits alternatives explained Documented By: Jens Nael MD 05/27/22 0943 Signed By: <Electronically signed by Jens Neal MD> 05/27/22 [facility] Work Phone: 1(774) 926-663010-02-2022 Progress note Author Endy hernandez [facility] May 26, 2022 10:09am Note Date/Time May 26, 2022 10 :08am [facility] [address] [place] [address] Psychiatry Progress Note Signed Patient: Meeta Caraballo MR#: [id number] : 1995 Acct:[id number] Age/Sex: 27 / M Adm Date: 2 Loc: 1S Room: [address] [place] [address] Type : ADM IN Attending Dr: Maddie [...] improving compared to time of admission. Per major case detective,Spoke with Nani HOYT, she will speak with [...] signed by Endy Chester MD> 05/26/22 1009 [facility] Work Phone: 1(532) 680-483110-01-2022 Progress note Author Endy hernandez [facility] May 25, 2022 10:00am Note Date/Time May 25, 2022 10 :00am [facility] [address] [place] [address] Psychiatry Progress Note Signed Patient: Meeta Caraballo MR#: [id number] : 1995 Acct:[id number] Age/Sex: 27 / M Adm Date: 2 Loc: Room: [address] [place] [address] Type : ADM IN Attending Dr: Maddie [...] most of the time inside hisroom. Per major case detective,Spoke with Nani HOYT, she will speak with [...] explained Documented By: Endy Chester MD 2 9344 Signed By: <Electronically signed by Endy Chester MD> 05/25/22 1000 [facility] Work Phone: 1(242) 847-879609-30-2022 Progress note Author Endy hernandez [facility] May 24, 2022 10:26am Note Date/Time May 24, 2022 10:26am [facility] [address] [place] [address] Psychiatry Progress Note Signed Patient: Meeta Caraballo MR#: [id number] : 1995 Acct:[id number] Age/Sex: 27 / M Adm Date: 2 Loc: Room: [address] [place] [address] Type : ADM IN Attending Dr: Maddie [...] <Electronically signed by Endy Chester MD> 05/24/[address] [place] [address] Ctr Work Phone: 1(616) 331-180909-29-2022 History and physical note Author Endy hernandez [facility] May 23, 2022 10:06am Note Date/Time May 23, 2022 10:04am [facility] [address] [place] [address] Psychiatry H&P Signed Patient: Meeta Caraballo MR#: [id number] : 1995 Acct:[id number] Age/Sex: 27 / M Adm Date: 2 Loc: Room: [address] [place] [address] Type: ADM IN Attending Dr: Maddie Chester [...] Caraballo is a 27 year old male [facility] Vaccinated for COVID-19?: No Medical History (Updated 05/23/22 @ 10:04 by Maddie Chester MD) ADD (attention deficit disorder) Hepatitis C History of IBS PTSD (post-traumatic stress disorder) Tourette syndrome Surgical History [place] teeth extracted Family History Brother Schizophrenia Other [...] <Electronically signed by Endy Chester MD> 05/23/[address] [facility]6 [facility] Work Phone: 1(353) 319-782706-19-2022 Evaluation + Plan noteExtracted from: Title:ED Note [...] Adult eGFR Ethanol Level Rapid COVID Antigen ([facility]) Addendum by April Mae, As trit H on February 10, 2022 16:11:48 EDT The care of the patient was transitioned to va upon shift change to follow-up with [facility] consult. The patient has presented for alcohol intoxication. He has expressed suicidal thoughts. The patient was evaluated by [facility] and the decision for inpatient treatment was made. The patient is medically cleared for psychiatric admission. He will be admitted at 1 S. under the care of of Dr. Neal for inpatient treatment. [facility]06-14-2022 Discharge summary Author Jens Neal [facility] February 05, 2022 11:42am Note Date/Time February 05, 2022 11:4 0am [facility] [address] [place] [address] Discharge Summary Signed Patient: Meeta Caraballo MR#: [id number] : 1995 Acct:[id number] Age/Sex: 27 / M Adm Date: 2 Loc: Room: [address] [place] [address]: Maddie Chester MD Copies to: [...] No activity restrictions. 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 (insert date/time here) Intake: (Insert date/time here) Please bring a copy of your photo ID, insurance card, and proof of household income.? Psychiatry: (Insert date/time here) Group: (Insert date/time here ) ) Documented By: Jens Neal MD 02/05/22 1139 Signed By: <Electronically signed by Jens Neal MD> 02/05/22 1142 [facility] Work Phone: 1(151) 474-764806-13-2022 Progress note Author Jens Neal [facility] February 04, 2022 1:30pm Note Date/Time February 04, 2022 1:30 pm [facility] [address] [place] [address] Psychiatry Progress Note Signed Patient: Meeta Caraballo MR#: [id number] : 1995 Acct:[id number] Age/Sex: 27 / M Adm Date: 2 Loc: Room: [address] [place] [address] Type : ADM IN Attending Dr: Maddie [...] <Electronically signed by Jens Neal MD> 02/04/22 7080 [facility] Work Phone: 1(187) 128-161706-12-2022 History and physical note Author Elias Frances [facility] February 03, 2022 5:03pm Note Date/Time February 03, 2022 3:19 pm [facility] [address] [place] [address] Hospitalist H&P Signed Patient: Meeta Caraballo MR#: [id number] : 1995 Acct:[id number] Age/Sex: 27 / M Adm Date: 2 Loc: Room: [address] [place] [address] Type : ADM IN Attending Dr: Maddie [...] 03/11/21 @ 19:10 by Yin Arroyo RN) [place] teeth extracted Family History (Updated 03/11/21 @ [...] pH 6.5 (5.0-9.0) 02/02/22 16:42 Ur Specific [place] 1.016 (1.001-1.030) 02/02/22 16:42 Urine Protein Negative [...] formulated the plan of care and confirmed [employer]'s written note. Documented By: DEANGELO Florence 2 1518 Signed By: <Electronically signed by DEANGELO Vaughn> 02/03/22 1638 <Electronically signed by Elias Frances MD> 02/03/22 1703 [facility] Work Phone: 1(974) 279-299806-12-2022 Progress note Author Endy hernandez [facility] February 03, 2022 10:05am Note Date/Time February 03, 2022 10:0 4am [facility] [address] [place] [address] Psychiatry Progress Note Signed Patient: Meeta Caraballo MR#: [id number] : 1995 Acct:[id number] Age/Sex: 27 / M Adm Date: 2 Loc: Room: 0G7112-3 Type : ADM IN Attending Dr: Maddie [...] signed by Endy Chester MD> 02/03/22 1005 [facility] Work Phone: 1(927) 439-801306-11-2022 Progress note Author Endy hernandez [facility] February 02, 2022 8:49am Note Date/Time February 02, 2022 8:49 am [facility] [address] [place] [address] Psychiatry Progress Note Signed Patient: Meeta Caraballo MR#: [id number] : 1995 Acct:[id number] Age/Sex: 27 / M Adm Date: 2 Loc: Room: 6T2759-9 Type : ADM IN Attending Dr: Maddie [...] signed by Endy Chester MD> 02/02/22 0849 [facility] Work Phone: 1(732) 908-416006-10-2022 Progress note Author Endy hernandez [facility] 2022 8:40am Note Date/Time 2022 8:40 am [facility] [address] [place] [address] Psychiatry Progress Note Signed Patient: Meeta Caraballo MR#: [id number] : 1995 Acct:[id number] Age/Sex: 27 / M Adm Date: 2 Loc: Room: [address] [place] [address] Type : ADM IN Attending Dr: Maddie [...] signed by Endy Chester MD> 02/01/22 0840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
[2025-05-02 10:15] LABS: Hematocrit 45.1 % (42.0-54.0); Hemoglobin 15.4 g/dL (14.0-18.0); Immature Granulocytes Abs Auto 0.02 10^3/uL (0.00-0.03); Immature Granulocytes Pct Auto 0.3 % (0.0-0.5); Lymphocytes Absolute Auto 2.3 10^3/uL (1.2-3.8); Mean Corpuscular HGB Conc 34.1 g/dL (29.9-35.2); Mean Corpuscular Hemoglobin 29.4 pg (25.9-34.0); Mean Corpuscular Volume 86.2 fL (80.0-94.0); Platelet Count 270 10^3/uL (150-450); Red Blood Count 5.23 10^6/uL (4.70-6.10); White Blood Count 7.4 10^3/uL (4.0-11.0)
[2025-05-02 10:33] LABS: Alanine Aminotransferase 25 U/L (16-63); Albumin Globulin Ratio 1.1; Albumin Level 4.0 g/dL (3.4-5.0); Alkaline Phosphatase 79 U/L (46-116); Anion Gap 12.7; Aspartate Amino Transferase 15 U/L (15-37); Blood Urea Nitrogen 10.0 mg/dL (7.0-18.0); Calcium 9.1 mg/dL (8.5-10.1); Carbon Dioxide 29.8 mmol/L (21.0-32.0); Chloride 104 mmol/L (98-107); Estimated GFR (African America >60 (>=60 mL/min/1.73m^2); Estimated GFR (Non-African Ame >60 (>=60 mL/min/1.73m^2); Globulin 3.6 g/dL; Glucose 63 mg/dL (74-106); Potassium 4.5 mmol/L (3.5-5.1); Sodium 142 mmol/L (136-145); Total Protein 7.6 g/dL (6.4-8.2)
== END 2025-05-02 09:30 | disposition home or self-care (01) ==
LOC: LAB 09:31
DX: B19.20 Unspecified viral hepatitis C without hepatic coma (principal)
CPT/HCPCS: 36415; 80053; 85025; 87522